=== PATIENT | male | born 1930 | race Caucasian/White ===

== ENCOUNTER 2016-09-02 19:22 | Emergency (ER) | payer MEDICARE, OTHER ==
[2016-09-02 19:47] VITALS: BP 151/91
[2016-09-02] MEDS ORDERED: Lidocaine 2% Jelly 10 ML Urojet ONE (20:00)
--- NOTE | 2016-09-02 20:00 | EDM.PDOC ---
[id number] URINARY RETENTION Time Seen by Provider: 09/02/16 19:58 Source: Reports: Patient, Old records, RN notes reviewed History Limitations: Reports: No limitations - History of Present Illness INITIAL COMMENTS - FREE TEXT/NARRATIVE: Drove himself here Chief complaint Unable to urinate HPI 85-year-old male with history of intermittent urinary retention, but has not seen urologist in the past. 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 He required catheterization which had begun in the emergency room. His latest episode occurred 8 days after biopsy of mediastinal lymph node, done at [facility]. He has a lung nodule. He had had catheterization done earlier this week, catheter was removed this morning but he was unable to void so he has returned for reinsertion of catheter By a scan done here shows over 100 mL of retained urine Grey Roll Worker apparently is setting him up an appointment with urology. He reports some pain with urination No fever or chills - Related Data Allergies/ADRs: Allergies Allergy/AdvReac Type Severity Reaction Status Date / Time amoxicillin Allergy Rash Verified 05/01/16 15:06 Penicillins Allergy Rash Verified 05/01/16 15:06 colesevelam AdvReac Stomach Verified 05/01/16 15:06 Upset piroxicam [From Feldene] AdvReac Nausea and Verified 05/01/16 15:06 Vomiting Wvgrkmb-Mzi-Tty Reductase AdvReac Muscle Verified 05/01/16 15:06 Inhibitor Aches Home Meds: Home Meds Acetaminophen/HYDROcodone [[place] 325-5 MG] 2 tab PO Q4H PRN #30 tablet 05/01/16 [Rx] Albuterol Sulfate [Proair Hfa] 2 puff IH QID 05/01/16 [History] Azelastine/Fluticasone [Dymista Nasal [place]] 2 puff NS BID 05/01/16 [History] Budesonide [Pulmicort Flexhaler] 180 mcg IH BID 05/01/16 [History] Docusate Sodium [Colace] 100 mg PO BID #50 cap 05/01/16 [Rx] Fluticasone Propionate [Flonase] 2 spray INH BID 05/01/16 [History] Multivitamin-Min/Iron/FA/Vit K [Multi-Day Plus Minerals Tablet] 1 each PO DAILY 05/01/16 [History] Niacinamide [Niacin] 500 mg PO DAILY 05/01/16 [History] Oxymetazoline HCl [Afrin] 1 spray NS DAILY 05/01/16 [History] Ubidecarenone [Coenzyme Q-10] 50 mg PO DAILY 05/01/16 [History] Ubidecarenone [Coenzyme Q-10] 200 mg PO DAILY 05/01/16 [History] Sulfamethoxazole/Trimethoprim [Septra DS] 1 each PO BID #10 tab 09/02/16 [Rx] Past Medical History HEENT History: Reports: Allergic rhinitis, Cataract, Hard of hearing Respiratory History: Reports: Asthma, Other (see below) Other Respiratory History: recent lung lymph nodes removed L side wk ago cancer Gastrointestinal History: Reports: Hemorrhoids Genitourinary History: Reports: Retention, urinary Musculoskeletal History: Reports: Arthritis Oncologic (Cancer) History: Reports: Lung - Past Surgical History HEENT Surgical History: Reports: None Respiratory Surgical History: Reports: Lung Biopsies GI Surgical History: Reports: Colonoscopy Social & Family History - Tobacco Use Smoking Status *Q: Never Smoker Years of Tobacco use: 70 Packs/Tins Daily: 0.3 Used Tobacco, but Quit: Yes Month Tobacco Last Used: 12 Second Hand Smoke Exposure: No - Caffeine Use Caffeine Use: Reports: None - Alcohol Use Days Per Week of Alcohol Use: 7 Number of Drinks Per Day: 2 Total Drinks Per Week: 14 - Recreational Drug Use Recreational Drug Use: No ED ROS GENERAL - Review of Systems Review Of Systems: See Below Constitutional: Reports: no symptoms HEENT: Reports: Other (Neck pain from recent surgery/biopsy) Respiratory: Reports: No Symptoms Cardiovascular: Reports: No symptoms GI/Abdominal: Reports: Abdominal pain, Distension : Reports: dysuria, urinary retention Musculoskeletal: Reports: no symptoms Skin: Reports: wound (Healing wounds of neck) Neurological: Reports: No Symptoms Psychiatric: Reports: No symptoms (Year to) Hematologic/Lymphatic: Reports: no symptoms Immunologic: Reports: no symptoms ED EXAM, RENAL/ - Physical Exam Exam: See Below Exam Limited By: No limitations General Appearance: alert, anxious, moderate distress, other (Quite uncomfortable, tachycardia presents with elevated systolic blood pressure, no difficulty speaking or breathing) Eye Exam: bilateral eye: normal inspection Ears: normal external exam, hearing grossly normal Throat/Mouth: Normal inspection Respiratory/Chest: no respiratory distress, no accessory muscle use Cardiovascular: normal peripheral pulses, regular rate, rhythm, tachycardia GI/Abdominal: normal bowel sounds, soft, tender, mass (Suprapubic mass, distended bladder) (Male) Exam: No hernia, Other (Distended bladder) Neurological: alert, no motor/sensory deficits Psychiatric: normal affect, normal mood Skin Exam: Warm, Dry, Intact, Normal color, No rash Course - Vital Signs Last Recorded V/S: Last Vital Signs Temp 36.9 C 09/02/16 19:43 Pulse 127 H 09/02/16 19:43 Resp BP 151/91 H 09/02/16 19:43 Pulse Ox 94 L 09/02/16 19:43 - Orders/Labs/Meds Orders: Active Orders 24 hr Category Date Time Status Insert Urinary Catheter [OM.PC] Q24H Care 09/02/16 20:15 Ordered Urinary Catheter Assessment [RC] ASDIRECTED Care 09/02/16 20:05 Active CULTURE URINE [RM] Stat Lab 09/02/16 20:30 Received Labs: Laboratory Tests 09/02/16 09/02/16 Range/Units 20:16 20:32 Urine Color Cancelled Yellow Urine Appearance Cancelled Slightly cloudy Urine pH Cancelled 6.0 Ur Specific [place] Cancelled 1.010 Urine Protein Cancelled Negative Urine Glucose (UA) Cancelled Normal Urine Ketones Cancelled Negative Urine Occult Blood Cancelled Moderate Urine Nitrite Cancelled Negative Urine Bilirubin Cancelled Negative Urine Urobilinogen Cancelled Normal Ur Leukocyte Esterase Cancelled Negative Urine RBC Cancelled 0-5 Urine WBC Cancelled 20-30 H Ur Epithelial Cells Cancelled Rare Amorphous Sediment Cancelled Not seen Urine Bacteria Cancelled Many Urine Mucus Cancelled Not seen Urine Other Cancelled Urinalysis Comment Cancelled Meds: Medications Discontinued Medications Generic Name Dose Route Start Last Admin Trade Name Freq PRN Reason Stop Dose Admin Lidocaine HCl Confirm 09/02/16 20:00 Xylocaine 2% Jelly Administered 09/02/16 20:01 Dose 10 ml .ROUTE .STK-MED ONE Lidocaine HCl 10 ml 09/02/16 20:10 Xylocaine 2% Jelly MUCMEM 09/02/16 20:11 ONETIME ONE Trimethoprim/Sulfamethoxazole 1 tab 09/02/16 21:00 Septra Ds PO 09/02/16 21:01 ONETIME ONE - Re-Assessments/Exams Free Text/Narrative Re-Assessment/Exam: 09/02/16 20:09 85-year-old male with urinary retention, acute, possibly related to recent surgery although he is not on any analgesics at the present time. Required catheterization this past week, has again retained ovary 100 mL of urine Collins catheter Followup with clinic and followup with urology Urinalysis positive for bacteria and pyuria Culture pending Symptoms improve with catheter Will treat with Septra first dose given here, 5 days, followup urology and clinic 09/02/16 21:02 Departure - Departure Time of Disposition: 21:02 Disposition: Home, Self-Care 01 Condition: good Clinical Impression: UTI, Urinary tract infectious disease, Acute urinary retention Prescriptions: Sulfamethoxazole/Trimethoprim [Septra DS] 1 each PO BID #10 tab Instructions: Collins Catheter Care, Adult, Urinary Tract Infection, Adult, Easy- to-Read Referrals: Jorge Luis Saldana MD [Primary Care Provider] - Forms: ED Department Discharge Additional Instructions: Make sure you contact the clinic to find out when you have a urology appointment Get rechecked promptly if you have high fever, vomiting, severe abdominal or back pain, or the catheter appears to be plugged or bleeding In general we like to leave the catheter in that least a few days to make sure the bladder has a chance to relax - My Orders Last 24 Hours: My Active Orders 09/02/16 20:05 Urinary Catheter Assessment [RC] ASDIRECTED 09/02/16 20:15 Insert Urinary Catheter [OM.PC] Q24H 09/02/16 20:30 CULTURE URINE [RM] Stat - Assessment/Plan Last 24 Hours: My Active Orders 09/02/16 20:05 Urinary Catheter Assessment [RC] ASDIRECTED 09/02/16 20:15 Insert Urinary Catheter [OM.PC] Q24H 09/02/16 20:30 CULTURE URINE [RM] Stat
[2016-09-02] MEDS ORDERED: Lidocaine 1% with EPINEPHrine 1:100,000 50 ML MDV INJECT STA (20:04)
[2016-09-02] MEDS ORDERED: Lidocaine 2% Jelly 10 ML Urojet MUCMEM ONE (20:10)
[2016-09-02] MEDS ORDERED: Sulfamethoxazole/Trimethoprim 800-160 MG Tab PO ONE (21:00)
== END 2016-09-02 21:10 | disposition home or self-care (01) ==
LOC: JP.ED 19:22
DX: N39.0 Urinary tract infection, site not specified (principal); R33.9 Retention of urine, unspecified; J45.909 Unspecified asthma, uncomplicated; Z85.118 Personal history of other malignant neoplasm of bronchus and lung; Z79.899 Other long term (current) drug therapy; Z88.1 Allergy status to other antibiotic agents; Z98.890 Other specified postprocedural states
CPT/HCPCS: 51702; 81001; 87086; 87088; 87186; 99283; 99284-25

== ENCOUNTER 2016-09-14 17:17 | Emergency (ER) | payer MEDICARE, OTHER ==
[2016-09-14 17:51] VITALS: BP 166/84
--- NOTE | 2016-09-14 17:58 | EDM.PDOC ---
ED HPI RENAL/ - General Chief Complaint: Genitourinary Problem Stated Complaint: CATH NOT WORKING Time Seen by Provider: 09/14/16 17:51 Source: Reports: Patient, RN notes reviewed History Limitations: Reports: No limitations - History of Present Illness INITIAL COMMENTS - FREE TEXT/NARRATIVE: 85-year-old gentleman presents emergency department today with difficulty with urination he has had bladder problems for the last 6 months follows with urology usually wears a catheter this particular one has been in place for about 10 days it stopped functioning today he is experiencing some lower abdominal pain denies any other symptoms - Related Data Allergies/ADRs: Allergies Allergy/AdvReac Type Severity Reaction Status Date / Time amoxicillin Allergy Rash Verified 09/14/16 17:51 Penicillins Allergy Rash Verified 09/14/16 17:51 colesevelam AdvReac Stomach Verified 09/14/16 17:51 Upset piroxicam [From Feldene] AdvReac Nausea and Verified 09/14/16 17:51 Vomiting Wfffepk-Ptc-Ruo Reductase AdvReac Muscle Verified 09/14/16 17:51 Inhibitor Aches Home Meds: Home Meds Acetaminophen/HYDROcodone [[place] 325-5 MG] 2 tab PO Q4H PRN #30 tablet 05/01/16 [Rx] Albuterol Sulfate [Proair Hfa] 2 puff IH QID 05/01/16 [History] Azelastine/Fluticasone [Dymista Nasal [place]] 2 puff NS BID 05/01/16 [History] Budesonide [Pulmicort Flexhaler] 180 mcg IH BID 05/01/16 [History] Docusate Sodium [Colace] 100 mg PO BID #50 cap 05/01/16 [Rx] Fluticasone Propionate [Flonase] 2 spray INH BID 05/01/16 [History] Multivitamin-Min/Iron/FA/Vit K [Multi-Day Plus Minerals Tablet] 1 each PO DAILY 05/01/16 [History] Niacinamide [Niacin] 500 mg PO DAILY 05/01/16 [History] Oxymetazoline HCl [Afrin] 1 spray NS DAILY 05/01/16 [History] Ubidecarenone [Coenzyme Q-10] 50 mg PO DAILY 05/01/16 [History] Ubidecarenone [Coenzyme Q-10] 200 mg PO DAILY 05/01/16 [History] Sulfamethoxazole/Trimethoprim [Septra DS] 1 each PO BID #10 tab 09/02/16 [Rx] Past Medical History HEENT History: Reports: Allergic rhinitis, Cataract, Hard of hearing Respiratory History: Reports: Asthma, Other (see below) Other Respiratory History: recent lung lymph nodes removed L side 12 wk ago cancer Gastrointestinal History: Reports: Hemorrhoids Genitourinary History: Reports: Retention, urinary Musculoskeletal History: Reports: Arthritis Oncologic (Cancer) History: Reports: Lung - Past Surgical History HEENT Surgical History: Reports: None Respiratory Surgical History: Reports: Lung Biopsies GI Surgical History: Reports: Colonoscopy Social & Family History - Tobacco Use Smoking Status *Q: Never Smoker Years of Tobacco use: 70 Packs/Tins Daily: 0.3 Used Tobacco, but Quit: Yes Month Tobacco Last Used: 12 Second Hand Smoke Exposure: No - Caffeine Use Caffeine Use: Reports: None - Alcohol Use Days Per Week of Alcohol Use: 7 Number of Drinks Per Day: 2 Total Drinks Per Week: 14 - Recreational Drug Use Recreational Drug Use: No ED ROS GENERAL - Review of Systems Review Of Systems: See Below Constitutional: Reports: no symptoms Respiratory: Reports: No Symptoms Cardiovascular: Reports: No symptoms GI/Abdominal: Reports: Abdominal pain : Reports: urinary retention ED EXAM, RENAL/ - Physical Exam Exam: See Below Text/Narrative:: Initial bladder scan showed 500 mL of urine, the catheter would not flush it was therefore removed a daily catheter was then replaced, after this was done relief of the bladder pain Exam Limited By: No limitations General Appearance: alert, WD/WN, no apparent distress GI/Abdominal: soft, non tender Course - Vital Signs Last Recorded V/S: Last Vital Signs Temp 98.8 F 09/14/16 17:46 Pulse 110 H 09/14/16 17:46 Resp 16 09/14/16 17:46 BP 166/84 H 09/14/16 17:46 Pulse Ox 94 L 09/14/16 17:46 - Orders/Labs/Meds Orders: Active Orders 24 hr Category Date Time Status Insert Urinary Catheter [OM.PC] Q24H Care 09/14/16 18:00 Ordered Urinary Catheter Assessment [RC] ASDIRECTED Care 09/14/16 17:52 Ordered Departure - Departure Time of Disposition: 17:57 Disposition: Home, Self-Care 01 Condition: good Clinical Impression: Acute urinary retention Forms: ED Department Discharge Additional Instructions: Keep your followup appointment with urology, call or return to the emergency department with worsening of symptoms - My Orders Last 24 Hours: My Active Orders 09/14/16 17:52 Urinary Catheter Assessment [RC] ASDIRECTED 09/14/16 18:00 Insert Urinary Catheter [OM.PC] Q24H - Assessment/Plan Last 24 Hours: My Active Orders 09/14/16 17:52 Urinary Catheter Assessment [RC] ASDIRECTED 09/14/16 18:00 Insert Urinary Catheter [OM.PC] Q24H Plan: Assessment Acuity = acute Site and laterality = urinary retention Etiology = secondary to stenosed catheter Manifestations = none Location of injury = home Lab values = none Plan He has a followup with urology in 3 days Patient was in agreement with the plan all questions were answered, they were instructed to return to the emergency department or call for worsening symptoms. This note was dictated using [employer] voice recognition software please call with any questions.
== END 2016-09-14 18:08 | disposition home or self-care (01) ==
LOC: JP.ED 17:17
DX: R33.8 Other retention of urine (principal); J45.909 Unspecified asthma, uncomplicated; Z85.118 Personal history of other malignant neoplasm of bronchus and lung; Z79.899 Other long term (current) drug therapy; Z88.0 Allergy status to penicillin; Z88.1 Allergy status to other antibiotic agents; Z88.8 Allergy status to other drugs, medicaments and biological substances
CPT/HCPCS: 51702; 99282; 99283-25

== ENCOUNTER 2016-09-21 06:41 | Day surgery (SDC) | payer MEDICARE, OTHER ==
[2016-09-21] MEDS ORDERED: Lidocaine 1% with EPINEPHrine 1:100,000 50 ML MDV ONE (07:02)
[2016-09-21] MEDS ORDERED: Bupivacaine 0.5% 50 ML MDV ONE (07:02)
[2016-09-21] MEDS ORDERED: Lactated Ringers 1,000 ML IV SCH (07:30)
[2016-09-21] MEDS ORDERED: Propofol 200 MG/20 ML SDV ONE ×2 (08:01→08:50)
[2016-09-21] MEDS ORDERED: fentaNYL 100 MCG/2 ML SDV ONE (08:02)
[2016-09-21] MEDS ORDERED: Clindamycin Phosphate 900 MG in Sodium Chloride 0.9% 100 ML IV ONE (08:45)
--- NOTE | 2016-09-21 09:45 | CR ---
Portable chest There is been placement of a Edwieo-v-Rhmj catheter on the left. The tip is at the junction of the l eft brachiocephalic and SVC junction.
[2016-09-21 10:41] VITALS: BP 150/69
--- NOTE | 2016-09-21 13:49 | OR ---
DATE OF PROCEDURE: 09/21/2016 PREOPERATIVE DIAGNOSIS: Lung cancer, needs chemotherapy. POSTOPERATIVE DIAGNOSIS: Lung cancer, needs chemotherapy. PROCEDURE: Left subclavian power port placement manufactured by [employer]. ANESTHESIA: IV anesthesia with monitored anesthesia care. INDICATIONS: This is an 85-year-old white male who has the lung cancer. He needs chemotherapy. He is referred for a Port-A-Cath placement. We used a power port. I counseled him for placement of this including risks and alternatives, and he gave his informed consent to proceed. DESCRIPTION OF PROCEDURE: The patient's upper chest, shoulders, and neck were prepped and draped in the usual sterile fashion. Time-out was held. Lidocaine 1% with epinephrine was infiltrated about the left infraclavicular area. The patient was placed in steep Trendelenburg. The left subclavian vein was cannulated with a needle and a wire was passed through the needle into the vein. Fluoroscopically it was noted to go down into the superior vena cava, right atrium and inferior vena cava. A transverse incision was then made in the infraclavicular area at the wire exit site and then a pocket was formed inferior to this. The Bard power port which had previously had the catheter attached to the reservoir and had been flushed with heparinized saline using a noncoring needle, was then placed in the pocket and the catheter was measured to an appropriate length. It was cut at this length. A dilator was then passed over the wire and the dilator was removed. A dilator with introducer was then passed over the wire and the wire and dilator were removed leaving the introducer in the vein. The catheter was then passed through the introducer into the vein and the introducer was removed leaving the catheter in the vein. It was easily aspirated and flushed. The reservoir was placed in the previously formed pocket and anchored with 3-0 silk suture to the underlying fascia at a couple of sites. The incision was then irrigated and dried. The subcutaneous tissue was closed with a running stitch of 3-0 Vicryl, 4-0 Vicryl using a subcuticular stitch was placed to approximate the skin. Steri-Strips were applied. The port was again accessed and easily aspirated and then again was flushed with heparinized saline. A sterile dressing was then applied. He was brought to the recovery room in good condition, having tolerated the procedure well. Omar Christianson MD /[id number]
== END 2016-09-21 10:33 | disposition home or self-care (01) ==
LOC: JP.SDS 06:41
PROVIDERS: ATTEND Surgery
DX: Z51.11 Encounter for antineoplastic chemotherapy (principal); C34.90 Malignant neoplasm of unspecified part of unspecified bronchus or lung; E78.5 Hyperlipidemia, unspecified; G47.33 Obstructive sleep apnea (adult) (pediatric); Z88.0 Allergy status to penicillin; Z88.1 Allergy status to other antibiotic agents; Z88.8 Allergy status to other drugs, medicaments and biological substances
CPT/HCPCS: 36561; C1788; J1642; J2704; J3010; J7030; J7120; S0077

== ENCOUNTER 2016-12-26 08:39 | Emergency (ER) | payer MEDICARE, OTHER ==
[2016-12-26 08:57] VITALS: BP 144/77
[2016-12-26] MEDS ORDERED: Ketorolac 30 MG/ML SDV IVPUSH ONE (09:24)
[2016-12-26] MEDS ORDERED: methylPREDNISolone Sodium Succinate 125 MG/2 ML SDV IVPUSH ONE (09:24)
--- NOTE | 2016-12-26 09:32 | EDM.PDOC ---
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 The pain improves in the evening, he is able to sleep but shortly after waking up it becomes much worse. This morning he took 2 of his oxycodone at 6 AM and it is so sore he came in to get extra relief. He has no shortness of breath, no fevers or chills and no nausea and vomiting. Onset: Unknown/Unsure Location: Reports: Upper Extremity, Right Severity: Severe Worsens with: Reports: Movement Associated Symptoms: Denies: Chest Pain, Cough, Fever/Chills, Headaches, Shortness of Breath right arm Pain Score (Numeric/FACES): 10 - Related Data Allergies Allergy/AdvReac Type Severity Reaction Status Date / Time amoxicillin Allergy Rash Verified 12/26/16 08:56 influenza virus vaccine, Allergy Other Verified 12/26/16 08:56 specific Penicillins Allergy Rash Verified 12/26/16 08:56 colesevelam AdvReac Stomach Verified 12/26/16 08:56 Upset piroxicam [From Feldene] AdvReac Nausea and Verified 12/26/16 08:56 Vomiting Ddrepul-Ioz-Olh Reductase AdvReac Muscle Verified 12/26/16 08:56 Inhibitor Aches Home Meds: Home Meds Albuterol Sulfate [Proair Hfa] 2 puff IH QID 05/01/16 [History] Azelastine/Fluticasone [Dymista Nasal [place]] 2 puff NS BID 05/01/16 [History] Budesonide [Pulmicort Flexhaler] 2 puff IH BID 05/01/16 [History] Fluticasone Propionate [Flonase] 2 spray INH BID 05/01/16 [History] Multivitamin-Min/Iron/FA/Vit K [Multi-Day Plus Minerals Tablet] 1 each PO DAILY 05/01/16 [History] Niacinamide [Niacin] 500 mg PO DAILY 05/01/16 [History] Oxymetazoline HCl [Afrin] 1 spray NS DAILY PRN 05/01/16 [History] Aspirin [Children's Aspirin] 81 mg PO DAILY 09/18/16 [History] Ubidecarenone [Co Q-10] 200 mg PO DAILY 09/18/16 [History] Tiotropium [Spiriva HandiHaler] 18 mcg INH DAILY 12/26/16 [History] oxyCODONE 5 mg PO 6XDAY PRN 12/26/16 [History] Past Medical History HEENT History: Reports: Allergic Rhinitis, Cataract, Hard of Hearing, Impaired Vision Cardiovascular History: Reports: High Cholesterol Respiratory History: Reports: Asthma, Other (See Below) Other Respiratory History: lung cancer Gastrointestinal History: Reports: Hemorrhoids Genitourinary History: Reports: Retention, Urinary Other Genitourinary History: came with a starkey catheter and leg bag Musculoskeletal History: Reports: Arthritis Oncologic (Cancer) History: Reports: Lung, Other (See Below) Other Oncologic History: port a cath placed on right side Dermatologic History: Reports: Eczema - Infectious Disease History Infectious Disease History: Reports: Chicken Pox, Measles, Mumps - Past Surgical History Respiratory Surgical History: Reports: Lung Biopsies GI Surgical History: Reports: Colonoscopy, Other (See Below) Other GI Surgeries/Procedures: hemorrhoidectomy Social & Family History - Family History Family Medical History: Noncontributory - Tobacco Use Smoking Status *Q: Former Smoker Years of Tobacco use: 65 Packs/Tins Daily: 0.5 Used Tobacco, but Quit: Yes Month Tobacco Last Used: may Second Hand Smoke Exposure: No - Caffeine Use Caffeine Use: Reports: Coffee - Alcohol Use Days Per Week of Alcohol Use: 7 Number of Drinks Per Day: 1 Total Drinks Per Week: 7 - Recreational Drug Use Recreational Drug Use: No Review of Systems - Review of Systems Review Of Systems: See Below Constitutional: Denies: Fever Respiratory: Denies: Shortness of Breath Cardiovascular: Denies: Chest Pain Musculoskeletal: Reports: Neck Pain Skin: Denies: Bruising Neurological: Denies: Headache ED EXAM, GENERAL - Physical Exam Exam: See Below Exam Limited By: No Limitations General Appearance: Alert, Mild Distress (Patient is very uncomfortable) Neck: Other (There is a 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 It is tender to palpation. He has no neurologic deficit of the right arm but has significant pain with movement.) Respiratory/Chest: No Respiratory Distress, Lungs Clear Course - Vital Signs Last Recorded V/S: Last Vital Signs Temp 99.1 F 12/26/16 08:54 Pulse 122 H 12/26/16 08:54 Resp 20 12/26/16 08:54 BP 144/77 H 12/26/16 08:54 Pulse Ox 93 L 12/26/16 08:54 - Orders/Labs/Meds Meds: Medications Discontinued Medications Generic Name Dose Route Start Last Admin Trade Name Satya PRN Reason Stop Dose Admin Ketorolac Tromethamine 30 mg 12/26/16 09:24 12/26/16 09:48 Toradol IVPUSH 12/26/16 09:25 30 mg ONETIME ONE Administration Methylprednisolone Sodium Succinate 125 mg 12/26/16 09:24 12/26/16 09:37 Solu-Medrol IVPUSH 12/26/16 09:25 125 mg ONETIME ONE Administration - Re-Assessments/Exams Free Text/Narrative Re-Assessment/Exam: 12/26/16 09:29 An IV was started and the patient was given 30 mg of Toradol IV along with 125 mg of Solu-Medrol IV. Hopefully this will reduce inflammation until he can see his oncologist on Wednesday. He was also reassured that he can increase his oxycodone to 2-3 pills every 3-4 hours if needed safely. Departure - Departure Time of Disposition: 10:45 Disposition: Home, Self-Care 01 Condition: Fair Clinical Impression: Arm pain, right, Tumor of soft tissue of neck - Discharge Information Instructions: Pain Medicine Instructions, [id number] Referrals: Jorge Luis Saldana MD [Primary Care Provider] - Forms: ED Department Discharge Care Plan Goals: Continue to take 2 or even 3 of your pain pills every 3-4 hours if needed. Call your doctor on Wednesday to discuss further treatment. Return sooner if worsening or concerns.
== END 2016-12-26 10:47 | disposition home or self-care (01) ==
LOC: JP.ED 08:39
DX: M79.601 Pain in right arm (principal); D36.7 Benign neoplasm of other specified sites; E78.00 Pure hypercholesterolemia, unspecified; J45.909 Unspecified asthma, uncomplicated; M19.90 Unspecified osteoarthritis, unspecified site; Z85.118 Personal history of other malignant neoplasm of bronchus and lung; Z79.899 Other long term (current) drug therapy; Z88.0 Allergy status to penicillin; Z88.1 Allergy status to other antibiotic agents; Z88.8 Allergy status to other drugs, medicaments and biological substances; Z98.890 Other specified postprocedural states; Z87.891 Personal history of nicotine dependence
CPT/HCPCS: 96374; 96375; 99283; J1885; J2930

== ENCOUNTER 2017-02-22 11:08 | Emergency (ER) | payer MEDICARE, OTHER ==
[2017-02-22] MEDS ORDERED: Albuterol 0.083% 2.5 MG/3 ML Neb Soln NEB ONE ×2 (11:24→13:04)
[2017-02-22] MEDS ORDERED: methylPREDNISolone Sodium Succinate 125 MG/2 ML SDV IVPUSH ONE (11:29)
--- NOTE | 2017-02-22 11:52 | EDM.PDOC ---
ED HPI GENERAL MEDICAL PROBLEM - General Chief Complaint: Respiratory Problem Stated Complaint: SOB Time Seen by Provider: 02/22/17 11:15 Source of Information: Reports: Family History Limitations: Reports: No Limitations - History of Present Illness INITIAL COMMENTS - FREE TEXT/NARRATIVE: pt arrived with increased sob. He has been vry wheezy. Onset: Gradual Duration: Getting Worse Location: Reports: Chest Associated Symptoms: Reports: Cough, Shortness of Breath, Other ( wheezing. ) - Related Data Allergies Allergy/AdvReac Type Severity Reaction Status Date / Time amoxicillin Allergy Rash Verified 12/26/16 08:56 influenza virus vaccine, Allergy Other Verified 12/26/16 08:56 specific Penicillins Allergy Rash Verified 12/26/16 08:56 colesevelam AdvReac Stomach Verified 12/26/16 08:56 Upset piroxicam [From Feldene] AdvReac Nausea and Verified 12/26/16 08:56 Vomiting Spwvxjj-[id number]-[id number] Reductase AdvReac Muscle Verified 12/26/16 08:56 Inhibitor Aches Home Meds: Home Meds Albuterol Sulfate [Proair Hfa] 2 puff IH QID 05/01/16 [History] Azelastine/Fluticasone [Dymista Nasal [place]] 2 puff NS BID 05/01/16 [History] Budesonide [Pulmicort Flexhaler] 2 puff IH BID 05/01/16 [History] Fluticasone Propionate [Flonase] 2 spray INH BID 05/01/16 [History] Multivitamin-Min/Iron/FA/Vit K [Multi-Day Plus Minerals Tablet] 1 each PO DAILY 05/01/16 [History] Niacinamide [Niacin] 500 mg PO DAILY 05/01/16 [History] Oxymetazoline HCl [Afrin] 1 spray NS DAILY PRN 05/01/16 [History] Aspirin [Children's Aspirin] 81 mg PO DAILY 09/18/16 [History] Ubidecarenone [Co Q-10] 200 mg PO DAILY 09/18/16 [History] Tiotropium [Spiriva HandiHaler] 18 mcg INH DAILY 12/26/16 [History] oxyCODONE 5 mg PO 6XDAY PRN 12/26/16 [History] Past Medical History HEENT History: Reports: Allergic Rhinitis, Cataract, Hard of Hearing, Impaired Vision Cardiovascular History: Reports: High Cholesterol Respiratory History: Reports: Asthma, Other (See Below) Other Respiratory History: lung cancer Gastrointestinal History: Reports: Hemorrhoids Genitourinary History: Reports: Retention, Urinary Other Genitourinary History: came with a starkey catheter and leg bag Musculoskeletal History: Reports: Arthritis Oncologic (Cancer) History: Reports: Lung, Other (See Below) Other Oncologic History: port a cath placed on right side Dermatologic History: Reports: Eczema - Infectious Disease History Infectious Disease History: Reports: Chicken Pox, Measles, Mumps - Past Surgical History Respiratory Surgical History: Reports: Lung Biopsies GI Surgical History: Reports: Colonoscopy, Other (See Below) Other GI Surgeries/Procedures: hemorrhoidectomy Social & Family History - Family History Family Medical History: Noncontributory - Tobacco Use Smoking Status *Q: Former Smoker Years of Tobacco use: 65 Packs/Tins Daily: 0.5 Used Tobacco, but Quit: Yes Month Tobacco Last Used: may Second Hand Smoke Exposure: No - Caffeine Use Caffeine Use: Reports: Coffee - Alcohol Use Days Per Week of Alcohol Use: 7 Number of Drinks Per Day: 1 Total Drinks Per Week: 7 - Recreational Drug Use Recreational Drug Use: No ED ROS GENERAL - Review of Systems Review Of Systems: See Below Constitutional: Reports: No Symptoms HEENT: Reports: No Symptoms Respiratory: Reports: Shortness of Breath, Wheezing, Cough Cardiovascular: Reports: No Symptoms Endocrine: Reports: No Symptoms GI/Abdominal: Reports: No Symptoms : Reports: No Symptoms Musculoskeletal: Reports: No Symptoms Skin: Reports: No Symptoms Psychiatric: Reports: Anxiety ED EXAM, GENERAL - Physical Exam Exam: See Below Free Text/Narrative:: pt arrived with marked sob. He has anthony wheezing very hard. He does not have a fver. He just finished his course of radiation. Exam Limited By: No Limitations General Appearance: Alert, Anxious, Moderate Distress Ears: Normal TMs Nose: Normal Inspection Throat/Mouth: Normal Inspection Head: Atraumatic Neck: Normal Inspection Respiratory/Chest: Decreased Breath Sounds, Wheezing Cardiovascular: Regular Rate, Rhythm GI/Abdominal: Soft, Non-Tender (Male) Exam: Deferred Rectal (Males) Exam: Deferred Back Exam: Normal Inspection Extremities: Normal Inspection Neurological: Alert, Oriented, Normal Cognition Psychiatric: Normal Affect Course - Vital Signs Last Recorded V/S: Last Vital Signs Temp 36.7 C 02/22/17 11:16 Pulse 121 H 02/22/17 11:32 Resp 50 H 02/22/17 11:16 BP 65/32 L 02/22/17 11:16 Pulse Ox 84 L 02/22/17 11:16 - Orders/Labs/Meds Orders: Active Orders 24 hr Category Date Time Status RT Aerosol Therapy [RC] ASDIRECTED Care 02/22/17 11:24 Active RT Aerosol Therapy [RC] ASDIRECTED Care 02/22/17 13:04 Ordered Albuterol [Proventil Neb Soln] Med 02/22/17 13:04 Once 2.5 mg NEB ONETIME ONE Sodium Chloride 0.9% [Saline Flush] Med 02/22/17 11:28 Active 10 ml FLUSH ASDIRECTED PRN Saline Lock Insert [OM.PC] Routine Oth 02/22/17 11:28 Ordered Medication Orders Sodium Chloride (Saline Flush) 10 ml FLUSH ASDIRECTED PRN PRN Reason: Keep Vein Open Last Admin: 02/22/17 12:00 Dose: 10 ml Admin: 02/22/17 11:57 Dose: 10 ml Labs: Laboratory Tests 02/22/17 02/22/17 02/22/17 Range/Units 11:30 11:44 11:44 WBC 7.7 (4.5-11.0) K/uL RBC 4.75 (4.30-5.90) M/uL Hgb 13.1 D (12.0-15.0) g/dL Hct 40.1 (40.0-54.0) % MCV 84 (80-98) fL MCH 28 (27-31) pg MCHC 33 (32-36) % Plt Count 262 (150-400) K/uL Neut % (Auto) 78 H (36-66) % Lymph % (Auto) 6 L (24-44) % [place] % (Auto) 10 H (2-6) % Eos % (Auto) 5 H (2-4) % Baso % (Auto) 1 (0-1) % Puncture Site Lt radial ABG pH 7.369 (7.350-7.450) ABG pCO2 45.8 H (35.0-42.0) mmHg ABG pO2 50.4 L (75.0-100.0) mmHg ABG HCO3 25.8 (22.0-26.0) mmol/L ABG Total CO2 23.2 (23.0-27.0) mmol/L ABG O2 Saturation 83.3 L (95.0-98.0) % ABG O2 Content 15.0 (15.0-23.0) %vol ABG Base Excess 0.7 mm/L ABG Hemoglobin 13.2 L (13.5-18.0) g/dL ABG Oxyhemoglobin 81.2 % ABG Carboxyhemoglobin 1.9 H (0.0-1.6) % ABG Methemoglobin 0.6 % Ever Test Passed O2 Delivery Device Nasal cannula Oxygen Flow Rate 3 L Sodium 141 (140-148) mmol/L Potassium 4.3 (3.6-5.2) mmol/L Chloride 106 (100-108) mmol/L Carbon Dioxide 26 (21-32) mmol/L Anion Gap 8.6 (5.0-14.0) mmol/L BUN 14 (7-18) mg/dL Creatinine 1.0 (0.8-1.3) mg/dL Est Cr Clr Drug Dosing 47.76 mL/min Estimated GFR (MDRD) > 60 (>60) Glucose 105 (74-106) mg/dL Calcium 8.9 (8.5-10.1) mg/dL Total Bilirubin 0.3 (0.2-1.0) mg/dL AST 14 L (15-37) U/L ALT 19 (12-78) U/L Alkaline Phosphatase 82 (46-116) U/L Total Protein 7.4 (6.4-8.2) g/dL Albumin 3.4 (3.4-5.0) g/dL Globulin 4.0 H (2.3-3.5) g/dL Albumin/Globulin Ratio 0.9 L (1.2-2.2) Urine Color Urine Appearance Urine pH (4.5-8.0) Ur Specific [place] (1.008-1.030) Urine Protein (NEGATIVE) mg/dL Urine Glucose (UA) (NEGATIVE) mg/dL Urine Ketones (NEGATIVE) mg/dL Urine Occult Blood (NEGATIVE) Urine Nitrite (NEGAITVE) Urine Bilirubin (NEGATIVE) Urine Urobilinogen (NORMAL) mg/dL Ur Leukocyte Esterase (NEGATIVE) Urine RBC (0-5) Urine WBC (0-5) Ur Epithelial Cells Amorphous Sediment Urine Bacteria Urine Mucus 02/22/17 Range/Units 12:05 WBC (4.5-11.0) K/uL RBC (4.30-5.90) M/uL Hgb (12.0-15.0) g/dL Hct (40.0-54.0) % MCV (80-98) fL MCH (27-31) pg MCHC (32-36) % Plt Count (150-400) K/uL Neut % (Auto) (36-66) % Lymph % (Auto) (24-44) % [place] % (Auto) (2-6) % Eos % (Auto) (2-4) % Baso % (Auto) (0-1) % Puncture Site ABG pH (7.350-7.450) ABG pCO2 (35.0-42.0) mmHg ABG pO2 (75.0-100.0) mmHg ABG HCO3 (22.0-26.0) mmol/L ABG Total CO2 (23.0-27.0) mmol/L ABG O2 Saturation (95.0-98.0) % ABG O2 Content (15.0-23.0) %vol ABG Base Excess mm/L ABG Hemoglobin (13.5-18.0) g/dL ABG Oxyhemoglobin % ABG Carboxyhemoglobin (0.0-1.6) % ABG Methemoglobin % Ever Test O2 Delivery Device Oxygen Flow Rate L Sodium (140-148) mmol/L Potassium (3.6-5.2) mmol/L Chloride (100-108) mmol/L Carbon Dioxide (21-32) mmol/L Anion Gap (5.0-14.0) mmol/L BUN (7-18) mg/dL Creatinine (0.8-1.3) mg/dL Est Cr Clr Drug Dosing mL/min Estimated GFR (MDRD) (>60) Glucose (74-106) mg/dL Calcium (8.5-10.1) mg/dL Total Bilirubin (0.2-1.0) mg/dL AST (15-37) U/L ALT (12-78) U/L Alkaline Phosphatase (46-116) U/L Total Protein (6.4-8.2) g/dL Albumin (3.4-5.0) g/dL Globulin (2.3-3.5) g/dL Albumin/Globulin Ratio (1.2-2.2) Urine Color Yellow Urine Appearance Cloudy Urine pH 5.0 (4.5-8.0) Ur Specific [place] 1.020 (1.008-1.030) Urine Protein 30 H (NEGATIVE) mg/dL Urine Glucose (UA) Normal (NEGATIVE) mg/dL Urine Ketones Negative (NEGATIVE) mg/dL Urine Occult Blood Large (NEGATIVE) Urine Nitrite Negative (NEGAITVE) Urine Bilirubin Negative (NEGATIVE) Urine Urobilinogen Normal (NORMAL) mg/dL Ur Leukocyte Esterase Large (NEGATIVE) Urine RBC 30-40 H (0-5) Urine WBC 75-100 H (0-5) Ur Epithelial Cells Moderate Amorphous Sediment Not seen Urine Bacteria Moderate Urine Mucus Few Meds: Medications Generic Name Dose Route Start Last Admin Trade Name Freq PRN Reason Stop Dose Admin Sodium Chloride 10 ml 02/22/17 11:28 02/22/17 12:00 Saline Flush FLUSH 10 ml ASDIRECTED PRN Administration Keep Vein Open Discontinued Medications Generic Name Dose Route Start Last Admin Trade Name Freq PRN Reason Stop Dose Admin Albuterol 2.5 mg 02/22/17 11:24 02/22/17 11:31 Proventil Neb Soln NEB 02/22/17 11:25 2.5 mg ONETIME ONE Administration Methylprednisolone Sodium Succinate 125 mg 02/22/17 11:29 02/22/17 11:57 Solu-Medrol IVPUSH 02/22/17 11:30 125 mg ONETIME ONE Administration - Re-Assessments/Exams Free Text/Narrative Re-Assessment/Exam: 02/22/17 13:08 pt arrived with marked sob and wheezing, He hs jut finished his radiation. He has had sob since the radiation. Departure - Departure Time of Disposition: 13:10 Disposition: Home, Self-Care 01 Condition: Fair Clinical Impression: Bronchospasm, Cancer of lung, Status post radiation therapy - Discharge Information Referrals: Jorge Luis Saldana MD [Primary Care Provider] - Forms: ED Department Discharge Care Plan Goals: albuterol neb q6h and prn if marked sob., predisone 20mg daily for 5 days, cont other meds, appt with Dr saldana in 4-5 days. - My Orders Last 24 Hours: My Active Orders 02/22/17 11:24 RT Aerosol Therapy [RC] ASDIRECTED 02/22/17 11:28 Sodium Chloride 0.9% [Saline Flush] 10 ml FLUSH ASDIRECTED PRN Saline Lock Insert [OM.PC] Routine 02/22/17 13:04 RT Aerosol Therapy [RC] ASDIRECTED Albuterol [Proventil Neb Soln] 2.5 mg NEB ONETIME ONE - Assessment/Plan Last 24 Hours: My Active Orders 02/22/17 11:24 RT Aerosol Therapy [RC] ASDIRECTED 02/22/17 11:28 Sodium Chloride 0.9% [Saline Flush] 10 ml FLUSH ASDIRECTED PRN Saline Lock Insert [OM.PC] Routine 02/22/17 13:04 RT Aerosol Therapy [RC] ASDIRECTED Albuterol [Proventil Neb Soln] 2.5 mg NEB ONETIME ONE
[2017-02-22] MEDS: Sodium Chloride 0.9% 10 ML Syringe FLUSH PRN ×2 (11:57→12:00)
--- NOTE | 2017-02-22 12:10 | CR ---
Chest 1V Frontal INDICATION: sob and wheezy. COMPARISON: None FINDINGS: Single portable view of the chest. Heart size normal. Port-A-Cath in place. No infiltrate s or pleural effusions. No signs of pulmonary edema. IMPRESSION: Nothing acute.
[2017-02-22 13:36] VITALS: BP 136/88
== END 2017-02-22 13:30 | disposition home or self-care (01) ==
LOC: JP.ED 11:08
DX: J98.01 Acute bronchospasm (principal); C34.90 Malignant neoplasm of unspecified part of unspecified bronchus or lung; E78.00 Pure hypercholesterolemia, unspecified; M19.90 Unspecified osteoarthritis, unspecified site; Z98.890 Other specified postprocedural states; Z87.891 Personal history of nicotine dependence; Z79.82 Long term (current) use of aspirin; Z79.899 Other long term (current) drug therapy; Z88.0 Allergy status to penicillin; Z88.1 Allergy status to other antibiotic agents; Z88.7 Allergy status to serum and vaccine; Z88.8 Allergy status to other drugs, medicaments and biological substances
CPT/HCPCS: 36415; 36600; 71010; 80053; 81001; 82803; 85025; 94640; 96374; 99285; J1642; J2930; J7050; 99284

== ENCOUNTER 2017-02-24 05:36 | Inpatient (IN) | payer MEDICARE, OTHER ==
[2017-02-24] MEDS ORDERED: Albuterol/Ipratropium 3.0-0.5 MG/3 ML Neb Soln ONE (05:49)
[2017-02-24] MEDS ORDERED: Albuterol/Ipratropium 3.0-0.5 MG/3 ML Neb Soln NEB ONE (05:51)
[2017-02-24] MEDS ORDERED: methylPREDNISolone Sodium Succinate 125 MG/2 ML SDV ONE (06:02)
[2017-02-24] MEDS ORDERED: Albuterol 0.083% 2.5 MG/3 ML Neb Soln NEB PRN ×2 (06:04→10:03)
--- NOTE | 2017-02-24 06:20 | EDM.PDOC ---
<Mike Brown - Last Filed: 02/24/17 07:03> ED HPI GENERAL MEDICAL PROBLEM - General Chief Complaint: Respiratory Problem Stated Complaint: SOB Time Seen by Provider: 02/24/17 05:53 Source of Information: Reports: Patient History Limitations: Reports: No Limitations - History of Present Illness INITIAL COMMENTS - FREE TEXT/NARRATIVE: 86 years old male patient with history of COPD, metastatic lung cancer with radiation. He just finished 20 times of radiation on February 01. Presented today with shortness of breath dry cough and wheezing started yesterday. Patient was seen 3 days ago here in the ER and was given 5 day course of prednisone and discharged home. Start feeling better first and secondary then started getting worse again. Denies any chest pain. Denies any fever., Onset: Gradual - Related Data Allergies Allergy/AdvReac Type Severity Reaction Status Date / Time amoxicillin Allergy Rash Verified 02/24/17 05:47 influenza virus vaccine, Allergy Other Verified 02/24/17 05:47 specific Penicillins Allergy Rash Verified 02/24/17 05:47 colesevelam AdvReac Stomach Verified 02/24/17 05:47 Upset piroxicam [From Feldene] AdvReac Nausea and Verified 02/24/17 05:47 Vomiting Iwisoje-Xaz-Yau Reductase AdvReac Muscle Verified 02/24/17 05:47 Inhibitor Aches Home Meds: Home Meds Albuterol Sulfate [Proair Hfa] 2 puff IH QID 05/01/16 [History] Azelastine/Fluticasone [Dymista Nasal [place]] 2 puff NS BID 05/01/16 [History] Budesonide [Pulmicort Flexhaler] 2 puff IH BID 05/01/16 [History] Fluticasone Propionate [Flonase] 2 spray INH BID 05/01/16 [History] Niacinamide [Niacin] 500 mg PO DAILY 05/01/16 [History] Aspirin [Children's Aspirin] 81 mg PO DAILY 09/18/16 [History] Tiotropium [Spiriva HandiHaler] 18 mcg INH DAILY 12/26/16 [History] Albuterol [Proventil Neb Soln] 1 dose INH Q6H PRN 02/24/17 [History] predniSONE [Prednisone] 20 mg PO DAILY 02/24/17 [History] Past Medical History HEENT History: Reports: Allergic Rhinitis, Cataract, Hard of Hearing, Impaired Vision Cardiovascular History: Reports: High Cholesterol Respiratory History: Reports: Asthma, Other (See Below) Other Respiratory History: lung cancer Gastrointestinal History: Reports: Hemorrhoids Genitourinary History: Reports: Retention, Urinary Other Genitourinary History: came with a starkey catheter and leg bag Musculoskeletal History: Reports: Arthritis Oncologic (Cancer) History: Reports: Lung, Other (See Below) Other Oncologic History: port a cath placed on right side Dermatologic History: Reports: Eczema - Infectious Disease History Infectious Disease History: Reports: Chicken Pox, Measles, Mumps - Past Surgical History Respiratory Surgical History: Reports: Lung Biopsies GI Surgical History: Reports: Colonoscopy, Other (See Below) Other GI Surgeries/Procedures: hemorrhoidectomy Social & Family History - Family History Family Medical History: Noncontributory - Tobacco Use Smoking Status *Q: Former Smoker Years of Tobacco use: 65 Packs/Tins Daily: 0.5 Used Tobacco, but Quit: Yes Month Tobacco Last Used: may Second Hand Smoke Exposure: No - Caffeine Use Caffeine Use: Reports: Coffee - Alcohol Use Days Per Week of Alcohol Use: 7 Number of Drinks Per Day: 1 Total Drinks Per Week: 7 - Recreational Drug Use Recreational Drug Use: No ED ROS GENERAL - Review of Systems Review Of Systems: ROS reveals no pertinent complaints other than HPI. ED EXAM, GENERAL - Physical Exam Exam: See Below Exam Limited By: No Limitations General Appearance: Alert, Anxious, Mild Distress Nose: Normal Inspection, Normal Mucosa, No Blood Head: Atraumatic, Normocephalic Neck: Normal Inspection, Supple, Non-Tender, Full Range of Motion Respiratory/Chest: Respiratory Distress, Crackles, Rales, Wheezing, Prolonged Expiration Cardiovascular: Normal Peripheral Pulses, No Edema, No Gallop, No JVD, No Murmur , No Rub, Tachycardia GI/Abdominal: Normal Bowel Sounds, Soft, Non-Tender, No Organomegaly, No Distention, No Abnormal Bruit, No Mass Neurological: Alert, Oriented, CN II-XII Intact, Normal Cognition, Normal Gait, Normal Reflexes, No Motor/Sensory Deficits Course - Vital Signs Last Recorded V/S: Last Vital Signs Temp 98.1 F 02/24/17 05:45 Pulse 125 H 02/24/17 07:56 Resp 22 H 02/24/17 07:56 BP 189/109 H 02/24/17 07:56 Pulse Ox 98 02/24/17 07:56 - Orders/Labs/Meds Orders: Active Orders 24 hr Category Date Time Status Cardiac Monitoring [RC] .As Directed Care 02/24/17 06:24 Active EKG Documentation Completion [RC] ASDIRECTED Care 02/24/17 06:10 Active RT Aerosol Therapy [RC] ASDIRECTED Care 02/24/17 05:51 Active RT Aerosol Therapy [RC] ASDIRECTED Care 02/24/17 06:06 Active Chest 1V Frontal [CR] Urgent Exams 02/24/17 06:07 Taken CULTURE BLOOD [BC] Urgent Lab 02/24/17 07:10 Received CULTURE BLOOD [BC] Urgent Lab 02/24/17 07:20 Received Albuterol [Proventil Neb Soln] Med 02/24/17 06:04 Active 2.5 mg NEB Q1H PRN Magnesium Sulfate/Water [Magnesium Sulfate 2 GM in Med 02/24/17 06:50 Active Water 50 ML] 2 gm Premix Bag 1 bag IV ONETIME Blood Culture x2 Reflex Set [OM.PC] Urgent Oth 02/24/17 06:42 Ordered EKG 12 Lead [EK] Urgent Ther 02/24/17 06:07 Ordered Medication Orders Albuterol (Proventil Neb Soln) 2.5 mg NEB Q1H PRN PRN Reason: Shortness of Breath Last Admin: 02/24/17 06:16 Dose: 2.5 mg Magnesium Sulfate 2 gm/ Premix 50 mls @ 12.5 mls/hr IV ONETIME ONE Stop: 02/24/17 10:49 Last Admin: 02/24/17 07:30 Dose: 12.5 mls/hr Labs: Laboratory Tests 02/24/17 02/24/17 02/24/17 Range/Units 06:11 06:30 06:30 WBC 18.0 H (4.5-11.0) K/uL RBC 4.91 (4.30-5.90) M/uL Hgb 13.3 (12.0-15.0) g/dL Hct 41.5 (40.0-54.0) % MCV 85 (80-98) fL MCH 27 (27-31) pg MCHC 32 (32-36) % Plt Count 347 (150-400) K/uL Neut % (Auto) 76 H (36-66) % Lymph % (Auto) 8 L (24-44) % [place] % (Auto) 10 H (2-6) % Eos % (Auto) 5 H (2-4) % Baso % (Auto) 0 (0-1) % Puncture Site Lt radial ABG pH 7.304 L (7.350-7.450) ABG pCO2 52.1 H (35.0-42.0) mmHg ABG pO2 191.0 H (75.0-100.0) mmHg ABG HCO3 25.1 (22.0-26.0) mmol/L ABG Total CO2 22.8 L (23.0-27.0) mmol/L ABG O2 Saturation 99.2 H (95.0-98.0) % ABG O2 Content 18.6 (15.0-23.0) %vol ABG Base Excess -1.4 mm/L ABG Hemoglobin 13.3 L (13.5-18.0) g/dL ABG Oxyhemoglobin 97.4 % ABG Carboxyhemoglobin 1.2 (0.0-1.6) % ABG Methemoglobin 0.6 % Ever Test Passed O2 Delivery Device Nasal cannula Oxygen Flow Rate L Sodium 143 (140-148) mmol/L Potassium 3.9 (3.6-5.2) mmol/L Chloride 103 (100-108) mmol/L Carbon Dioxide 27 (21-32) mmol/L Anion Gap 12.9 (5.0-14.0) mmol/L BUN 21 H (7-18) mg/dL Creatinine 1.3 (0.8-1.3) mg/dL Est Cr Clr Drug Dosing 36.79 mL/min Estimated GFR (MDRD) 53 L (>60) Glucose 145 H (74-106) mg/dL Lactic Acid (0.4-2.0) mmol/L Calcium 8.9 (8.5-10.1) mg/dL Magnesium (1.8-2.4) mg/dL Total Bilirubin 0.2 (0.2-1.0) mg/dL AST 20 (15-37) U/L ALT 23 (12-78) U/L Alkaline Phosphatase 82 (46-116) U/L Troponin I 0.081 H* (0.000-0.056) ng/mL NT-Pro-B Natriuret Pep (5-450) pg/mL Total Protein 7.8 (6.4-8.2) g/dL Albumin 3.8 (3.4-5.0) g/dL Globulin 4.0 H (2.3-3.5) g/dL Albumin/Globulin Ratio 1.0 L (1.2-2.2) 02/24/17 02/24/17 02/24/17 Range/Units 06:30 06:30 06:34 WBC (4.5-11.0) K/uL RBC (4.30-5.90) M/uL Hgb (12.0-15.0) g/dL Hct (40.0-54.0) % MCV (80-98) fL MCH (27-31) pg MCHC (32-36) % Plt Count (150-400) K/uL Neut % (Auto) (36-66) % Lymph % (Auto) (24-44) % [place] % (Auto) (2-6) % Eos % (Auto) (2-4) % Baso % (Auto) (0-1) % Puncture Site ABG pH (7.350-7.450) ABG pCO2 (35.0-42.0) mmHg ABG pO2 (75.0-100.0) mmHg ABG HCO3 (22.0-26.0) mmol/L ABG Total CO2 (23.0-27.0) mmol/L ABG O2 Saturation (95.0-98.0) % ABG O2 Content (15.0-23.0) %vol ABG Base Excess mm/L ABG Hemoglobin (13.5-18.0) g/dL ABG Oxyhemoglobin % ABG Carboxyhemoglobin (0.0-1.6) % ABG Methemoglobin % Ever Test O2 Delivery Device Oxygen Flow Rate L Sodium (140-148) mmol/L Potassium (3.6-5.2) mmol/L Chloride (100-108) mmol/L Carbon Dioxide (21-32) mmol/L Anion Gap (5.0-14.0) mmol/L BUN (7-18) mg/dL Creatinine (0.8-1.3) mg/dL Est Cr Clr Drug Dosing mL/min Estimated GFR (MDRD) (>60) Glucose (74-106) mg/dL Lactic Acid 3.3 H (0.4-2.0) mmol/L Calcium (8.5-10.1) mg/dL Magnesium 2.2 (1.8-2.4) mg/dL Total Bilirubin (0.2-1.0) mg/dL AST (15-37) U/L ALT (12-78) U/L Alkaline Phosphatase (46-116) U/L Troponin I (0.000-0.056) ng/mL NT-Pro-B Natriuret Pep 1361 H (5-450) pg/mL Total Protein (6.4-8.2) g/dL Albumin (3.4-5.0) g/dL Globulin (2.3-3.5) g/dL Albumin/Globulin Ratio (1.2-2.2) Meds: Medications Generic Name Dose Route Start Last Admin Trade Name Freq PRN Reason Stop Dose Admin Albuterol 2.5 mg 02/24/17 06:04 02/24/17 06:16 Proventil Neb Soln NEB 2.5 mg Q1H PRN Administration Shortness of Breath Magnesium Sulfate 2 gm/ Premix 50 mls @ 12.5 mls/hr 02/24/17 06:50 02/24/17 07:30 IV 02/24/17 10:49 12.5 mls/hr ONETIME ONE Administration Discontinued Medications Generic Name Dose Route Start Last Admin Trade Name Freq PRN Reason Stop Dose Admin Albuterol/Ipratropium 3 ml 02/24/17 05:51 02/24/17 05:53 Duoneb 3.0-0.5 Mg/3 Ml NEB 02/24/17 05:52 3 ml ONETIME ONE Administration Albuterol/Ipratropium Confirm 02/24/17 05:49 02/24/17 05:53 Duoneb 3.0-0.5 Mg/3 Ml Administered 02/24/17 05:50 Not Given Dose 3 ml .ROUTE .STK-MED ONE Diltiazem HCl 15 mg 02/24/17 06:47 02/24/17 06:51 Diltiazem IVPUSH 02/24/17 06:48 15 mg ONETIME ONE Administration Diltiazem HCl Confirm 02/24/17 06:47 02/24/17 06:51 Diltiazem Administered 02/24/17 06:48 Not Given Dose 25 mg .ROUTE .STK-MED ONE Sodium Chloride 500 mls @ 999 mls/hr 02/24/17 06:53 02/24/17 06:55 Normal Saline IV 02/24/17 07:23 999 mls/hr .BOLUS ONE Administration Methylprednisolone Sodium Succinate Confirm 02/24/17 06:02 02/24/17 06:37 Solu-Medrol Administered 02/24/17 06:03 Not Given Dose 125 mg .ROUTE .STK-MED ONE Methylprednisolone Sodium Succinate 125 mg 02/24/17 06:30 02/24/17 06:10 Solu-Medrol IVPUSH 02/24/17 06:31 125 mg ONETIME ONE Administration - Re-Assessments/Exams Free Text/Narrative Re-Assessment/Exam: 02/24/17 07:06 Patient was seen and examined shortly after arrival. Started on routing equipment tender. Was given DuoNeb. And 125 mg IV Solu Medrol. Lab and imaging has been ordered. I also ordered BiPAP that is getting started now. EKG shows sinus tachycardia and his blood pressure was elevated and 227/127. The patient was given 50 mg IV Cardizem and his heart slowed down to 120 which looks more like a sinus tachycardia. And his blood pressure improved down to 150/90. Chest x- ray shows no acute finding. No infiltrates. No pleural effusion. There is pending I did order 500 mL normal saline bolus. I did also order 2 g mag sulfate. Symptoms improved . I don't think he needs to be intubated at this point however if he did not continue to improve then we should consider intubation. Patient care was transferred to Dr. De La Paz at time shift exchange in a stable condition. 02/24/17 07:11 Departure - Departure Time of Disposition: 07:13 Disposition: Admitted As Inpatient 68 Clinical Impression: COPD with exacerbation, Bronchospasm Metastatic cancer to lung Qualifiers: Laterality: unspecified laterality Qualified Code(s): C78.00 - Secondary malignant neoplasm of unspecified lung - Discharge Information Referrals: Jorge Luis Saldana MD [Primary Care Provider] - Forms: ED Department Discharge Care Plan Goals: Patient is to be evaluated by the hospitalist service for admission for treatment of persistent reactive airways and COPD exacerbation. <Jorge Luis Luna - Last Filed: 02/24/17 08:26> Course - Re-Assessments/Exams Free Text/Narrative Re-Assessment/Exam: 02/24/17 08:23 Patient care received from Dr. Brown. He slowly improved but still found it difficult to go without BiPAP. Dr. Abraham of the hospitalist saw him and evaluated him for admission for COPD exacerbation and respiratory distress. Departure - Departure Condition: Fair
[2017-02-24] MEDS ORDERED: methylPREDNISolone Sodium Succinate 125 MG/2 ML SDV IVPUSH ONE (06:30)
[2017-02-24] MEDS ORDERED: Diltiazem 25 MG/5 ML SDV IVPUSH ONE (06:47)
[2017-02-24] MEDS ORDERED: Diltiazem 25 MG/5 ML SDV ONE (06:47)
[2017-02-24] MEDS ORDERED: Magnesium Sulfate/Water 2 GM in Premix Bag 1 BAG IV ONE (06:50)
[2017-02-24] MEDS ORDERED: Sodium Chloride 0.9% 500 ML IV ONE (06:53)
[2017-02-24] MEDS ORDERED: cefTRIAXone 2 GM in Sodium Chloride 0.9% 50 ML IV SCH (08:30)
[2017-02-24] MEDS ORDERED: Sodium Chloride 0.9% 1,000 ML IV SCH (08:45)
--- NOTE | 2017-02-24 08:50 | PCM.HP ---
H&P History of Present Illness - General Date of Service: 02/24/17 Admit Problem/Dx: Admission Diagnosis/Problem Admission Diagnosis/Problem Acute exacerbation of chronic obstructive airways disease Source of Information: Patient, Provider History Limitations: Reports: No Limitations - History of Present Illness Initial Comments - Free Text/Narative: Daron presents to the ED today with severe shortness of breath. He first noticed mild shortness of breath a few days ago and was seen in the emergency room 2 days ago. There is no evidence for infection at that time and he was started on prednisone for a presumed COPD exacerbation. He had recently been treated with radiation for his lung cancer and neck mass. He has not had any fevers at home. He has only a mild dry cough at this time. No reports of chest pain or pleuritic chest pain. No recent change in bowel or bladder habits. No obvious sick contacts that he is aware of. He felt better the first day after starting the prednisone but has been getting worse since that time. Upon arrival to the emergency room he was noted to be in respiratory distress. Workup in the emergency room revealed mild respiratory acidosis and hypercapnia based on arterial blood gases. Laboratory studies were otherwise unrevealing with the exception of an elevated white count and elevated lactic acid. Troponin level was very mildly elevated. Chest x-ray was clear. Respiratory status did improve some with noninvasive ventilation. He will be admitted to the intensive care unit. - Related Data Allergies/Adverse Reactions: Allergies Allergy/AdvReac Type Severity Reaction Status Date / Time amoxicillin Allergy Rash Verified 02/24/17 05:47 influenza virus vaccine, Allergy Other Verified 02/24/17 05:47 specific Penicillins Allergy Rash Verified 02/24/17 05:47 colesevelam AdvReac Stomach Verified 02/24/17 05:47 Upset piroxicam [From Feldene] AdvReac Nausea and Verified 02/24/17 05:47 Vomiting [id number]-[id number] Reductase AdvReac Muscle Verified 02/24/17 05:47 Inhibitor Aches Home Medications: Home Meds Albuterol Sulfate [Proair Hfa] 2 puff IH QID 05/01/16 [History] Azelastine/Fluticasone [Dymista Nasal [place]] 2 puff NS BID 05/01/16 [History] Budesonide [Pulmicort Flexhaler] 2 puff IH BID 05/01/16 [History] Fluticasone Propionate [Flonase] 2 spray INH BID 05/01/16 [History] Niacinamide [Niacin] 500 mg PO DAILY 05/01/16 [History] Aspirin [Children's Aspirin] 81 mg PO DAILY 09/18/16 [History] Tiotropium [Spiriva HandiHaler] 18 mcg INH DAILY 12/26/16 [History] Albuterol [Proventil Neb Soln] 1 dose INH Q6H PRN 02/24/17 [History] predniSONE [Prednisone] 20 mg PO DAILY 02/24/17 [History] Past Medical History HEENT History: Reports: Allergic Rhinitis, Cataract, Hard of Hearing, Impaired Vision Cardiovascular History: Reports: High Cholesterol Respiratory History: Reports: Asthma, Other (See Below) Other Respiratory History: lung cancer Gastrointestinal History: Reports: Hemorrhoids Genitourinary History: Reports: Retention, Urinary Other Genitourinary History: came with a starkey catheter and leg bag Musculoskeletal History: Reports: Arthritis Oncologic (Cancer) History: Reports: Lung, Other (See Below) Other Oncologic History: port a cath placed on right side Dermatologic History: Reports: Eczema - Infectious Disease History Infectious Disease History: Reports: Chicken Pox, Measles, Mumps - Past Surgical History Respiratory Surgical History: Reports: Lung Biopsies GI Surgical History: Reports: Colonoscopy, Other (See Below) Other GI Surgeries/Procedures: hemorrhoidectomy Social & Family History - Family History Family Medical History: Noncontributory - Tobacco Use Smoking Status *Q: Former Smoker Years of Tobacco use: 65 Packs/Tins Daily: 0.5 Used Tobacco, but Quit: Yes Month Tobacco Last Used: may Second Hand Smoke Exposure: No - Caffeine Use Caffeine Use: Reports: Coffee - Alcohol Use Days Per Week of Alcohol Use: 7 Number of Drinks Per Day: 1 Total Drinks Per Week: 7 - Recreational Drug Use Recreational Drug Use: No H&P Review of Systems - Review of Systems: Review Of Systems: See Below Free Text/Narrative: A complete 12 point review of systems was obtained. Pertinent positives and negatives are noted in the history of present illness. All other systems were reviewed and were negative except as noted. Exam - Exam Exam: See Below - Vital Signs Vital Signs: Last Vital Signs Temp 36.7 C 02/24/17 05:45 Pulse 125 H 02/24/17 07:56 Resp 22 H 02/24/17 07:56 BP 189/109 H 02/24/17 07:56 Pulse Ox 98 02/24/17 07:56 Weight: 62.2 kg - Exam Quality Assessment: Supplemental Oxygen. No: Urinary Catheter General: Alert, Oriented, Cooperative, Mild Distress HEENT: Conjunctiva Clear. No: Mucosa Moist & [place], Scleral Icterus Neck: Supple, Trachea Midline. No: Lymphadenopathy Lungs: Rhonchi (mild throughout), Wheezing (diffuse exp wheezing ). No: Normal Respiratory Effort, Rales Cardiovascular: Regular Rhythm, Tachycardia. No: Systolic Murmur GI/Abdominal Exam: Normal Bowel Sounds, Soft, Non-Tender, No Distention Back Exam: Normal Inspection Extremities: Normal Inspection, No Pedal Edema. No: Leg Pain, Increased Warmth Peripheral Pulses: 2+: Dorsalis Pedis (L), Dorsalis Pedis (R) Skin: Warm, Dry, Intact Neuro Extensive - Mental Status: Alert, Oriented x3, Nl Response to Commands Neuro Extensive - Motor, Sensory, Reflexes: No: Dysarthria, Abnormal Motor, Tremor Psychiatric: Alert, Normal Affect, Normal Mood - Patient Data Lab Results Last 24 hrs: Laboratory Results - last 24 hr 02/24/17 02/24/17 02/24/17 Range/Units 06:11 06:30 06:30 WBC 18.0 H (4.5-11.0) K/uL RBC 4.91 (4.30-5.90) M/uL Hgb 13.3 (12.0-15.0) g/dL Hct 41.5 (40.0-54.0) % MCV 85 (80-98) fL MCH 27 (27-31) pg MCHC 32 (32-36) % Plt Count 347 (150-400) K/uL Neut % (Auto) 76 H (36-66) % Lymph % (Auto) 8 L (24-44) % [place] % (Auto) 10 H (2-6) % Eos % (Auto) 5 H (2-4) % Baso % (Auto) 0 (0-1) % Puncture Site Lt radial ABG pH 7.304 L (7.350-7.450) ABG pCO2 52.1 H (35.0-42.0) mmHg ABG pO2 191.0 H (75.0-100.0) mmHg ABG HCO3 25.1 (22.0-26.0) mmol/L ABG Total CO2 22.8 L (23.0-27.0) mmol/L ABG O2 Saturation 99.2 H (95.0-98.0) % ABG O2 Content 18.6 (15.0-23.0) %vol ABG Base Excess -1.4 mm/L ABG Hemoglobin 13.3 L (13.5-18.0) g/dL ABG Oxyhemoglobin 97.4 % ABG Carboxyhemoglobin 1.2 (0.0-1.6) % ABG Methemoglobin 0.6 % Ever Test Passed O2 Delivery Device Nasal cannula Oxygen Flow Rate L Sodium 143 (140-148) mmol/L Potassium 3.9 (3.6-5.2) mmol/L Chloride 103 (100-108) mmol/L Carbon Dioxide 27 (21-32) mmol/L Anion Gap 12.9 (5.0-14.0) mmol/L BUN 21 H (7-18) mg/dL Creatinine 1.3 (0.8-1.3) mg/dL Est Cr Clr Drug Dosing 36.79 mL/min Estimated GFR (MDRD) 53 L (>60) Glucose 145 H (74-106) mg/dL Lactic Acid (0.4-2.0) mmol/L Calcium 8.9 (8.5-10.1) mg/dL Magnesium (1.8-2.4) mg/dL Total Bilirubin 0.2 (0.2-1.0) mg/dL AST 20 (15-37) U/L ALT 23 (12-78) U/L Alkaline Phosphatase 82 (46-116) U/L Troponin I 0.081 H* (0.000-0.056) ng/mL NT-Pro-B Natriuret Pep (5-450) pg/mL Total Protein 7.8 (6.4-8.2) g/dL Albumin 3.8 (3.4-5.0) g/dL Globulin 4.0 H (2.3-3.5) g/dL Albumin/Globulin Ratio 1.0 L (1.2-2.2) 02/24/17 02/24/17 02/24/17 Range/Units 06:30 06:30 06:34 WBC (4.5-11.0) K/uL RBC (4.30-5.90) M/uL Hgb (12.0-15.0) g/dL Hct (40.0-54.0) % MCV (80-98) fL MCH (27-31) pg MCHC (32-36) % Plt Count (150-400) K/uL Neut % (Auto) (36-66) % Lymph % (Auto) (24-44) % [place] % (Auto) (2-6) % Eos % (Auto) (2-4) % Baso % (Auto) (0-1) % Puncture Site ABG pH (7.350-7.450) ABG pCO2 (35.0-42.0) mmHg ABG pO2 (75.0-100.0) mmHg ABG HCO3 (22.0-26.0) mmol/L ABG Total CO2 (23.0-27.0) mmol/L ABG O2 Saturation (95.0-98.0) % ABG O2 Content (15.0-23.0) %vol ABG Base Excess mm/L ABG Hemoglobin (13.5-18.0) g/dL ABG Oxyhemoglobin % ABG Carboxyhemoglobin (0.0-1.6) % ABG Methemoglobin % Ever Test O2 Delivery Device Oxygen Flow Rate L Sodium (140-148) mmol/L Potassium (3.6-5.2) mmol/L Chloride (100-108) mmol/L Carbon Dioxide (21-32) mmol/L Anion Gap (5.0-14.0) mmol/L BUN (7-18) mg/dL Creatinine (0.8-1.3) mg/dL Est Cr Clr Drug Dosing mL/min Estimated GFR (MDRD) (>60) Glucose (74-106) mg/dL Lactic Acid 3.3 H (0.4-2.0) mmol/L Calcium (8.5-10.1) mg/dL Magnesium 2.2 (1.8-2.4) mg/dL Total Bilirubin (0.2-1.0) mg/dL AST (15-37) U/L ALT (12-78) U/L Alkaline Phosphatase (46-116) U/L Troponin I (0.000-0.056) ng/mL NT-Pro-B Natriuret Pep 1361 H (5-450) pg/mL Total Protein (6.4-8.2) g/dL Albumin (3.4-5.0) g/dL Globulin (2.3-3.5) g/dL Albumin/Globulin Ratio (1.2-2.2) Result Diagrams: 02/24/17 06:30 02/24/17 06:30 Imaging Impressions Last 24 hrs: CXR - images personally reviewed - there is hyperinflation. No mass, infiltrate , effusion or chf. Heart size is normal. EKG INTERPRETATION EKG Date: 02/24/17 Rhythm: Other (sinus tachycardia) Rate (Beats/Min): 144 [place]: RAD-Right [place] Deviation P-Wave: Present QRS: Normal ST-T: Normal QT: Normal *Q Meaningful Use (ADM) - VTE *Q VTE Criteria *Q: - VTE Risk Assess *Q Each Risk Factor Represents 1 Point: Abnormal Pulmonary Function (COPD) Total Score 1 Point Risk Factors: 1 Each Risk Factor Represents 2 Points: None Total Score 2 Point Risk Factors: 0 Each Risk Factor Represents 3 Points: Age 75 Years or Greater, Present Cancer or Chemotherapy Total Score 3 Point Risk Factors: 6 Each Risk Factor Represents 5 Points: None Total Score 5 Point Risk Factors: 0 Venous Thromboembolism Risk Factor Score *Q: 7 - Stroke *Q Stroke Criteria *Q: - AMI *Q AMI Criteria *Q: - Problem List (1) Acute respiratory failure with hypoxia and hypercapnia SNOMED Code(s): 19412870, 100014569 ICD Code: J96.01 - ACUTE RESPIRATORY FAILURE WITH HYPOXIA; J96.02 - ACUTE RESPIRATORY FAILURE WITH HYPERCAPNIA Status: Acute Current Visit: Yes (2) Acute exacerbation of chronic obstructive airways disease SNOMED Code(s): 024613464 ICD Code: J44.1 - CHRONIC OBSTRUCTIVE PULMONARY DISEASE W (ACUTE) EXACERBATION Status: Acute Current Visit: Yes (3) Elevated troponin SNOMED Code(s): 581325341, 798697050 ICD Code: R74.8 - ABNORMAL LEVELS OF OTHER SERUM ENZYMES Status: Acute Current Visit: Yes (4) Cancer of lung SNOMED Code(s): 438505324 ICD Code: C34.90 - MALIGNANT NEOPLASM OF UNSP PART OF UNSP BRONCHUS OR LUNG Status: Chronic Current Visit: No Qualifiers: Laterality: unspecified laterality Lung location: unspecified part of lung Qualified Code(s): C34.90 - Malignant neoplasm of unspecified part of unspecified bronchus or lung Problem List Initiated/Reviewed/Updated: Yes Orders Last 24hrs: Active Orders 24 hr Category Date Time Status Patient Status Manage Transfer [TRANSFER] Routine ADT 02/24/17 08:33 Ordered Cardiac Monitoring [RC] .As Directed Care 02/24/17 06:24 Active EKG Documentation Completion [RC] ASDIRECTED Care 02/24/17 06:10 Active RT Aerosol Therapy [RC] ASDIRECTED Care 02/24/17 05:51 Active RT Aerosol Therapy [RC] ASDIRECTED Care 02/24/17 06:06 Active Chest 1V Frontal [CR] Urgent Exams 02/24/17 06:07 Taken Chest w Cont [CT] Stat Exams 02/24/17 08:30 Ordered CULTURE BLOOD [BC] Urgent Lab 02/24/17 07:10 Received CULTURE BLOOD [BC] Urgent Lab 02/24/17 07:20 Received Albuterol [Proventil Neb Soln] Med 02/24/17 06:04 Active 2.5 mg NEB Q1H PRN Magnesium Sulfate/Water [Magnesium Sulfate 2 GM in Med 02/24/17 06:50 Active Water 50 ML] 2 gm Premix Bag 1 bag IV ONETIME Sodium Chloride 0.9% [Normal Saline] 1,000 ml Med 02/24/17 08:45 Active IV ASDIRECTED cefTRIAXone [Rocephin] 2 gm Med 02/24/17 08:30 Active Sodium Chloride 0.9% [Normal Saline] 50 ml IV Q24H Blood Culture x2 Reflex Set [OM.PC] Urgent Oth 02/24/17 06:42 Ordered Resuscitation Status Routine Resus Stat 02/24/17 08:35 Ordered EKG 12 Lead [EK] Urgent Ther 02/24/17 06:07 Ordered Medication Orders Albuterol (Proventil Neb Soln) 2.5 mg NEB Q1H PRN PRN Reason: Shortness of Breath Last Admin: 02/24/17 06:16 Dose: 2.5 mg Magnesium Sulfate 2 gm/ Premix 50 mls @ 12.5 mls/hr IV ONETIME ONE Stop: 02/24/17 10:49 Last Admin: 02/24/17 07:30 Dose: 12.5 mls/hr Ceftriaxone Sodium 2 gm/ (Sodium Chloride) 50 mls @ 100 mls/hr IV Q24H [facility] Sodium Chloride (Normal Saline) 1,000 mls @ 999 mls/hr IV ASDIRECTED [facility] Stop: 02/24/17 09:46 Assessment/Plan Comment:: Assessment and plan - Acute exacerbation of COPD with hypoxic and hypercapnic respiratory failure - no strong evidence for infection at this time though bronchitis is a possibility. Radiation injury could be contributing. CT pulmonary angiogram did not show evidence for pulmonary embolus. No evidence for pneumonia. I suspect the tachycardia and mild troponin elevation are a result of his respiratory issues. -Continue noninvasive ventilation -Solu-Medrol -Pulmicort -Empiric anabiotic coverage with ceftriaxone and azithromycin -Sputum culture if able -Scheduled and as needed nebulizers -Repeat lactic acid level after hydration Elevated troponin - mild elevation, probably secondary to tachycardia and hypoxia. No symptoms to suggest acute coronary syndrome. EKG did not suggest ACS. 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 Has been receiving radiation therapy recently. Most recent chemotherapy was months ago. -Outpatient follow-up Maintenance issues - - DVT prophylaxis - enoxaparin - GI prophylaxis - PPI - Nutrition - regular diet as tolerated - Starkey catheter - not indicated CODE STATUS - full code - I personally reviewed with the patient his wishes regarding CPR and mechanical ventilation at the bedside at the time of admission. Admission justification - This patient will be admitted for inpatient services and is medically appropriate meeting medical necessity for inpatient admission as outlined in my documentation. I reasonably expect the patient will require inpatient services that span a period time over 2 midnights. I reasonably expect this patient to be discharged or transferred within 96 hours [facility] Disposition - anticipate discharge to home after the hospital stay. 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 There are no children who live close by to help out unfortunately. Primary care physician - Dr. Shana Abraham M.D.
[2017-02-24] MEDS ORDERED: Sodium Chloride 0.9% 10 ML Syringe FLUSH ONE (09:11)
[2017-02-24] MEDS ORDERED: Iopamidol 755 Mg/ML 100 ML Bottle IV SCH (09:15)
[2017-02-24] MEDS ORDERED: Polyethylene Glycol 3350 Powder 17 GM Packet PO PRN (10:03)
[2017-02-24] MEDS ORDERED: Morphine 2 MG/ML Syringe IVPUSH PRN (10:03)
[2017-02-24] MEDS ORDERED: Acetaminophen 325 MG Tab PO PRN (10:03)
[2017-02-24] MEDS ORDERED: Ondansetron 4 MG/2 ML SDV IV PRN (10:03)
[2017-02-24] MEDS ORDERED: Ondansetron 4 MG Tab.DIS PO PRN (10:03)
[2017-02-24] MEDS: cefTRIAXone 2 GM in Sodium Chloride 0.9% 50 ML IV SCH (10:10)
[2017-02-24] MEDS: Budesonide 0.5 MG/2 ML Neb Susp NEB SCH ×2 (10:34→21:39)
[2017-02-24] MEDS: Albuterol/Ipratropium 3.0-0.5 MG/3 ML Neb Soln NEB SCH ×3 (10:35→21:40)
[2017-02-24] MEDS: Azithromycin 500 MG in Sodium Chloride 0.9% 250 ML IV SCH (10:42)
[2017-02-24] MEDS: Sodium Chloride 0.9% 1,000 ML IV SCH ×2 (10:44→19:52)
--- NOTE | 2017-02-24 11:15 | CR ---
Chest 1V Frontal INDICATION: sob COMPARISON: 02/22/2017 FINDINGS: Single portable view of the chest. Heart size normal. Port-A-Cath remains in place. No in filtrates pleural effusions or signs of pulmonary edema. IMPRESSION: No acute change since 02/22/2017.
[2017-02-24] MEDS: methylPREDNISolone Sodium Succinate 125 MG/2 ML SDV IVPUSH SCH ×2 (12:08→17:38)
[2017-02-24] MEDS: Aspirin 81 MG Tab.Chew PO SCH (12:08)
--- NOTE | 2017-02-24 13:52 | CT ---
Ang Chest INDICATION: hypoxic resp failure, lung cancer, r/o PE TECHNIQUE: CT chest performed with IV contrast using CTA protocol. 3D radial and/or 3D sagittal MIP images reconstructions were obtained and reviewed. DLP: 337 mGycm COMPARISON: CT 12/17/2016 FINDINGS: No evidence of pulmonary embolism. Thoracic aorta normal caliber. Mass at the base of the n bobo is again seen, only partially visualized, and appears grossly unchanged. Right paratracheal lymph node increased measuring 2.9 x 2.2 cm, previously 1.7 x 1.3 cm. Right hilar lymph nodes stable. Slig ht decrease in pericardial effusion. 6 mm nodule right apex unchanged. Scarring right upper lobe unch anged. No new suspicious pulmonary nodules seen. Water density cysts right kidney again noted. IMPRESSION: 1. No evidence of pulmonary embolism. 2. Mass at the base of the neck again noted. Unable to obtain precise measurement since this is not c ompletely imaged. 3. Increased size of right paratracheal mediastinal lymph node since 12/17/2016.
[2017-02-24] MEDS: LORazepam 2 MG/ML MDV IVPUSH PRN ×2 (14:30→22:30)
[2017-02-24] MEDS: Enoxaparin 40 MG/0.4 ML Syringe SUBCUT SCH (17:06)
[2017-02-24] MEDS: Codeine/guaiFENesin 100mg-10 MG/5 ML Syrup 10 ML Cup PO PRN ×2 (17:57→21:53)
[2017-02-25] MEDS: methylPREDNISolone Sodium Succinate 125 MG/2 ML SDV IVPUSH SCH ×5 (00:50→23:48)
[2017-02-25] MEDS: Sodium Chloride 0.9% 1,000 ML IV SCH ×2 (04:09→22:02)
[2017-02-25] MEDS: LORazepam 2 MG/ML MDV IVPUSH PRN ×2 (04:18→12:30)
[2017-02-25] MEDS: Albuterol/Ipratropium 3.0-0.5 MG/3 ML Neb Soln NEB SCH ×4 (07:18→20:39)
[2017-02-25] MEDS: Budesonide 0.5 MG/2 ML Neb Susp NEB SCH ×2 (07:18→20:39)
[2017-02-25] MEDS: Pantoprazole 40 MG Tab.CR PO SCH (08:04)
--- NOTE | 2017-02-25 09:17 | PCM.PN ---
- General Info Date of Service: 02/25/17 Functional Status: Reports: Pain Controlled, Tolerating Diet - Review of Systems General: Reports: Weakness Pulmonary: Reports: Shortness of Breath Systems Review Comment:: No acute events overnight. He was on NIPPV most of the night but is off this morning. Oxygen saturations acceptable on 2 L. He continues to be tachycardic with heart rate has been slowly improving overnight. No significant fevers. He does continue to cough. No complaints of chest pain or abdominal pain. - Patient Data Vitals - Most Recent: Last Vital Signs Temp 36.4 C 02/25/17 07:00 Pulse 121 H 02/25/17 08:55 Resp 20 02/25/17 08:55 BP 150/69 H 02/25/17 08:55 Pulse Ox 98 02/25/17 08:57 Weight - Most Recent: 62.2 kg I&O - Last 24 Hours: Intake & Output 02/24/17 02/25/17 02/25/17 22:59 06:59 14:59 Intake Total 2320 1565 Output Total 1050 300 Balance 1270 1565 -300 Lab Results Last 24 Hours: Laboratory Results - last 24 hr 02/24/17 02/24/17 02/25/17 Range/Units 11:20 11:20 04:40 WBC 8.4 (4.5-11.0) K/uL RBC 3.86 L (4.30-5.90) M/uL Hgb 10.2 L D (12.0-15.0) g/dL Hct 33.2 L (40.0-54.0) % MCV 86 (80-98) fL MCH 26 L (27-31) pg MCHC 31 L (32-36) % Plt Count 216 (150-400) K/uL Sodium (140-148) mmol/L Potassium (3.6-5.2) mmol/L Chloride (100-108) mmol/L Carbon Dioxide (21-32) mmol/L Anion Gap (5.0-14.0) mmol/L BUN (7-18) mg/dL Creatinine (0.8-1.3) mg/dL Est Cr Clr Drug Dosing mL/min Estimated GFR (MDRD) (>60) Glucose (74-106) mg/dL Lactic Acid 3.4 H (0.4-2.0) mmol/L Calcium (8.5-10.1) mg/dL Magnesium (1.8-2.4) mg/dL Troponin I 0.077 H* (0.000-0.056) ng/mL 02/25/17 Range/Units 04:40 WBC (4.5-11.0) K/uL RBC (4.30-5.90) M/uL Hgb (12.0-15.0) g/dL Hct (40.0-54.0) % MCV (80-98) fL MCH (27-31) pg MCHC (32-36) % Plt Count (150-400) K/uL Sodium 142 (140-148) mmol/L Potassium 4.1 (3.6-5.2) mmol/L Chloride 107 (100-108) mmol/L Carbon Dioxide 27 (21-32) mmol/L Anion Gap 7.8 (5.0-14.0) mmol/L BUN 19 H (7-18) mg/dL Creatinine 1.0 (0.8-1.3) mg/dL Est Cr Clr Drug Dosing 47.76 mL/min Estimated GFR (MDRD) > 60 (>60) Glucose 161 H (74-106) mg/dL Lactic Acid (0.4-2.0) mmol/L Calcium 8.2 L (8.5-10.1) mg/dL Magnesium 2.1 (1.8-2.4) mg/dL Troponin I (0.000-0.056) ng/mL Med Orders - Current: Current Medications Acetaminophen (Tylenol) 650 mg PO Q4H PRN PRN Reason: Pain (Mild 1-3)/fever Last Admin: 02/24/17 21:37 Dose: 650 mg Albuterol (Proventil Neb Soln) 2.5 mg NEB Q2H PRN PRN Reason: Shortness Of Breath/wheezing Albuterol/Ipratropium (Duoneb 3.0-0.5 Mg/3 Ml) 3 ml NEB QIDRT [facility] Last Admin: 02/25/17 07:18 Dose: 3 ml Aspirin (Aspirin) 81 mg PO DAILY [facility] Last Admin: 02/24/17 12:08 Dose: 81 mg Budesonide (Pulmicort) 0.5 mg NEB BIDRT [facility] Last Admin: 02/25/17 07:18 Dose: 0.5 mg Enoxaparin Sodium (Lovenox) 40 mg SUBCUT DAILY@1600 [facility] Last Admin: 02/24/17 17:06 Dose: 40 mg Guaifenesin/Codeine Phosphate (Robitussin Ac) 10 ml PO Q4H PRN PRN Reason: Cough Last Admin: 02/24/17 21:53 Dose: 10 ml Ceftriaxone Sodium 2 gm/ (Sodium Chloride) 50 mls @ 100 mls/hr IV Q24H [facility] Last Admin: 02/24/17 10:10 Dose: 100 mls/hr Azithromycin 500 mg/ Sodium (Chloride) 250 mls @ 250 mls/hr IV Q24H [facility] Last Admin: 02/24/17 10:42 Dose: 250 mls/hr Sodium Chloride (Normal Saline) 1,000 mls @ 125 mls/hr IV ASDIRECTED [facility] Last Admin: 02/25/17 04:09 Dose: 125 mls/hr Lorazepam (Ativan) 0.5 - 1 mg IVPUSH Q4H PRN PRN Reason: Anxiety Last Admin: 02/25/17 04:18 Dose: 1 mg Methylprednisolone Sodium Succinate (Solu-Medrol) 62.5 mg IVPUSH Q6H [facility] Last Admin: 02/25/17 06:02 Dose: 62.5 mg Morphine Sulfate (Morphine) 2 mg IVPUSH Q2H PRN PRN Reason: Pain (severe 7-10) Ondansetron HCl (Zofran Odt) 4 mg PO Q6H PRN PRN Reason: Nausea able to take PO Ondansetron HCl (Zofran) 4 mg IV Q6H PRN PRN Reason: Nausea/Vomiting Pantoprazole Sodium (Protonix) 40 mg PO ACBREAKFAST [facility] Last Admin: 02/25/17 08:04 Dose: 40 mg Polyethylene Glycol (Miralax) 17 gm PO DAILY PRN PRN Reason: Constipation Senna/Docusate Sodium (Senna Plus) 1 tab PO BID PRN PRN Reason: Constipation Discontinued Medications Albuterol (Proventil Neb Soln) 2.5 mg NEB Q1H PRN PRN Reason: Shortness of Breath Last Admin: 02/24/17 06:16 Dose: 2.5 mg Albuterol/Ipratropium (Duoneb 3.0-0.5 Mg/3 Ml) 3 ml NEB ONETIME ONE Stop: 02/24/17 05:52 Last Admin: 02/24/17 05:53 Dose: 3 ml Albuterol/Ipratropium (Duoneb 3.0-0.5 Mg/3 Ml) Confirm Administered Dose 3 ml .ROUTE .STK-MED ONE Stop: 02/24/17 05:50 Last Admin: 02/24/17 05:53 Dose: Not Given Diltiazem HCl (Diltiazem) 15 mg IVPUSH ONETIME ONE Stop: 02/24/17 06:48 Last Admin: 02/24/17 06:51 Dose: 15 mg Diltiazem HCl (Diltiazem) Confirm Administered Dose 25 mg .ROUTE .STK-MED ONE Stop: 02/24/17 06:48 Last Admin: 02/24/17 06:51 Dose: Not Given Magnesium Sulfate 2 gm/ Premix 50 mls @ 12.5 mls/hr IV ONETIME ONE Stop: 02/24/17 10:49 Last Admin: 02/24/17 07:30 Dose: 12.5 mls/hr Sodium Chloride (Normal Saline) 500 mls @ 999 mls/hr IV .BOLUS ONE Stop: 02/24/17 07:23 Last Admin: 02/24/17 06:55 Dose: 999 mls/hr Sodium Chloride (Normal Saline) 1,000 mls @ 999 mls/hr IV ASDIRECTED [facility] Stop: 02/24/17 09:46 Sodium Chloride (Normal Saline) 84 mls @ 4 mls/sec IV ASDIRECTED [facility] Stop: 02/24/17 10:30 Last Admin: 02/24/17 09:29 Dose: 4 mls/sec Iopamidol (Isovue-370 (76%)) 100 ml IV . DIRECTED [facility] Stop: 02/24/17 10:30 Last Admin: 02/24/17 09:30 Dose: 100 ml Methylprednisolone Sodium Succinate (Solu-Medrol) Confirm Administered Dose 125 mg .ROUTE .STK-MED ONE Stop: 02/24/17 06:03 Last Admin: 02/24/17 06:37 Dose: Not Given Methylprednisolone Sodium Succinate (Solu-Medrol) 125 mg IVPUSH ONETIME ONE Stop: 02/24/17 06:31 Last Admin: 02/24/17 06:10 Dose: 125 mg Sodium Chloride (Saline Flush) 10 ml FLUSH ONETIME ONE Stop: 02/24/17 09:12 Last Admin: 02/24/17 09:29 Dose: 10 ml - Exam Quality Assessment: Supplemental Oxygen General: Alert, Oriented, Cooperative, No Acute Distress Neck: Supple Lungs: Clear to Auscultation, Normal Respiratory Effort, Other (prolonged exp phase). No: Wheezing Cardiovascular: Regular Rhythm, Tachycardia GI/Abdominal Exam: Soft, No Distention Extremities: No Pedal Edema. No: Increased Warmth Skin: Warm, Dry Psy/Mental Status: Alert, Normal Affect - Problem List & Annotations (1) Acute respiratory failure with hypoxia and hypercapnia SNOMED Code(s): 58322115, 748099238 Code(s): J96.01 - ACUTE RESPIRATORY FAILURE WITH HYPOXIA; J96.02 - ACUTE RESPIRATORY FAILURE WITH HYPERCAPNIA Status: Acute Current Visit: Yes (2) Acute exacerbation of chronic obstructive airways disease SNOMED Code(s): 531724776 Code(s): J44.1 - CHRONIC OBSTRUCTIVE PULMONARY DISEASE W (ACUTE) EXACERBATION Status: Acute Current Visit: Yes (3) Elevated troponin SNOMED Code(s): 685952391, 816778970 Code(s): R74.8 - ABNORMAL LEVELS OF OTHER SERUM ENZYMES Status: Acute Current Visit: Yes (4) Cancer of lung SNOMED Code(s): 206210556 Code(s): C34.90 - MALIGNANT NEOPLASM OF UNSP PART OF UNSP BRONCHUS OR LUNG Status: Chronic Current Visit: No Qualifiers: Laterality: unspecified laterality Lung location: unspecified part of lung Qualified Code(s): C34.90 - Malignant neoplasm of unspecified part of unspecified bronchus or lung - Problem List Review Problem List Initiated/Reviewed/Updated: Yes - My Orders Last 24 Hours: My Active Orders 02/24/17 08:35 Resuscitation Status Routine 02/24/17 09:00 cefTRIAXone [Rocephin] 2 gm Sodium Chloride 0.9% [Normal Saline] 50 ml IV Q24H 02/24/17 10:03 Patient Status [ADT] Routine BIPAP Adult [RT BiPAP/CPAP] [RC] ASDIRECTED Bedrest Bathroom Privileges [RC] ASDIRECTED Cardiac Monitoring [RC] Q6HR Intake and Output [RC] Q12H Notify Provider Vital Signs [RC] ASDIRECTED Oxygen Therapy [RC] PRN Pulse Oximetry [RC] CONTINUOUS RT Aerosol Therapy [RC] ASDIRECTED Up With Assistance [RC] ASDIRECTED VTE/DVT Education [RC] .PRN Vital Signs [RC] Q1HR CULTURE RESPIRATORY + SMEAR [RM] Routine Acetaminophen [Tylenol] 650 mg PO Q4H PRN Albuterol [Proventil Neb Soln] 2.5 mg NEB Q2H PRN Docusate Sodium/Sennosides [Senna Plus] 1 tab PO BID PRN LORazepam [Ativan] 0.5 - 1 mg IVPUSH Q4H PRN Morphine 2 mg IVPUSH Q2H PRN Ondansetron [Zofran ODT] 4 mg PO Q6H PRN Ondansetron [Zofran] 4 mg IV Q6H PRN Polyethylene Glycol 3350 [MiraLAX] 17 gm PO DAILY PRN Sodium Chloride 0.9% [Normal Saline] 1,000 ml IV ASDIRECTED 02/24/17 11:00 Albuterol/Ipratropium [DuoNeb 3.0-0.5 MG/3 ML] 3 ml NEB QIDRT Azithromycin [Zithromax] 500 mg Sodium Chloride 0.9% [Normal Saline] 250 ml IV Q24H Budesonide [Pulmicort] 0.5 mg NEB BIDRT 02/24/17 12:00 methylPREDNISolone Sod Succ [Solu-MEDROL] 62.5 mg IVPUSH Q6H 02/24/17 16:00 Enoxaparin [Lovenox] 40 mg SUBCUT DAILY@1600 02/24/17 17:50 Codeine/guaiFENesin [Robitussin AC] 10 ml PO Q4H PRN 02/25/17 07:30 Pantoprazole [ProTONIX] 40 mg PO ACBREAKFAST 02/25/17 Lunch Regular Diet [DIET] 02/26/17 05:00 BASIC METABOLIC PANEL,BMP [CHEM] Timed CBC W/O DIFF,HEMOGRAM [HEME] Timed (1) - Plan Plan:: Assessment and plan - Acute exacerbation of COPD with hypoxic and hypercapnic respiratory failure - likely trigger is either bronchitis or recent radiation. He is coughing a little bit more today. Wheezing has decreased respiratory status improving but he may still need additional noninvasive ventilation throughout the day. -Continue noninvasive ventilation as needed -Solu-Medrol -Pulmicort -Empiric anabiotic coverage with ceftriaxone and azithromycin -Sputum culture if able -Scheduled and as needed nebulizers Elevated troponin - mild elevation, probably secondary to tachycardia and hypoxia. Repeat level last night was stable. No chest pain or cardiac symptoms. -Cardiac monitoring Adenocarcinoma of the lung - locally metastatic disease. Has been receiving radiation therapy recently. Most recent chemotherapy was months ago. -Outpatient follow-up Maintenance issues - - DVT prophylaxis - enoxaparin - GI prophylaxis - PPI - Nutrition - regular diet as tolerated Disposition - anticipate discharge to home after the hospital stay. 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 There are no children who live close by to help out unfortunately but his niece has been helping. Antwon Abraham M.D.
[2017-02-25] MEDS: cefTRIAXone 2 GM in Sodium Chloride 0.9% 50 ML IV SCH (09:55)
[2017-02-25] MEDS: Aspirin 81 MG Tab.Chew PO SCH ×2 (09:55→10:50)
[2017-02-25] MEDS: Azithromycin 500 MG in Sodium Chloride 0.9% 250 ML IV SCH (11:06)
[2017-02-25] MEDS: Codeine/guaiFENesin 100mg-10 MG/5 ML Syrup 10 ML Cup PO PRN (11:06)
[2017-02-25] MEDS: Enoxaparin 40 MG/0.4 ML Syringe SUBCUT SCH (16:16)
[2017-02-26] MEDS: methylPREDNISolone Sodium Succinate 125 MG/2 ML SDV IVPUSH SCH (05:34)
[2017-02-26] MEDS: Sodium Chloride 0.9% 1,000 ML IV SCH (06:02)
[2017-02-26] MEDS: Pantoprazole 40 MG Tab.CR PO SCH (07:32)
[2017-02-26] MEDS: Budesonide 0.5 MG/2 ML Neb Susp NEB SCH ×2 (07:54→20:46)
[2017-02-26] MEDS: Albuterol/Ipratropium 3.0-0.5 MG/3 ML Neb Soln NEB SCH ×4 (07:54→20:46)
--- NOTE | 2017-02-26 09:05 | PCM.PN ---
- General Info Date of Service: 02/26/17 Functional Status: Reports: Pain Controlled, Tolerating Diet - Review of Systems General: Reports: Weakness Pulmonary: Reports: Shortness of Breath Cardiovascular: Reports: Dyspnea on Exertion Systems Review Comment:: No acute events overnight. He did well with the noninvasive ventilation and slept fairly well. Respiratory status stable on 2 L this morning. Heart rate has come down some but still rises when he is up and about. He is not having chest pain or abdominal pain. He has a dry cough. He has not been having any fevers. Wheezing has improved today. - Patient Data Vitals - Most Recent: Last Vital Signs Temp 36.3 C 02/26/17 07:00 Pulse 97 02/26/17 07:54 Resp 22 H 02/26/17 07:00 BP 176/83 H 02/26/17 07:00 Pulse Ox 97 02/26/17 07:54 Weight - Most Recent: 62.2 kg I&O - Last 24 Hours: Intake & Output 02/25/17 02/26/17 02/26/17 22:59 06:59 14:59 Intake Total 1550 1552 Output Total 725 225 Balance 825 1327 Lab Results Last 24 Hours: Laboratory Results - last 24 hr 02/26/17 02/26/17 Range/Units 06:02 06:02 WBC 12.5 H (4.5-11.0) K/uL RBC 3.85 L (4.30-5.90) M/uL Hgb 10.4 L (12.0-15.0) g/dL Hct 33.2 L (40.0-54.0) % MCV 86 (80-98) fL MCH 27 (27-31) pg MCHC 31 L (32-36) % Plt Count 232 (150-400) K/uL Sodium 144 (140-148) mmol/L Potassium 4.0 (3.6-5.2) mmol/L Chloride 110 H (100-108) mmol/L Carbon Dioxide 27 (21-32) mmol/L Anion Gap 11.0 (5.0-14.0) mmol/L BUN 19 H (7-18) mg/dL Creatinine 0.9 (0.8-1.3) mg/dL Est Cr Clr Drug Dosing 53.07 mL/min Estimated GFR (MDRD) > 60 (>60) Glucose 127 H (74-106) mg/dL Calcium 8.3 L (8.5-10.1) mg/dL Med Orders - Current: Current Medications Acetaminophen (Tylenol) 650 mg PO Q4H PRN PRN Reason: Pain (Mild 1-3)/fever Last Admin: 02/24/17 21:37 Dose: 650 mg Albuterol (Proventil Neb Soln) 2.5 mg NEB Q2H PRN PRN Reason: Shortness Of Breath/wheezing Last Admin: 02/25/17 12:19 Dose: 2.5 mg Albuterol/Ipratropium (Duoneb 3.0-0.5 Mg/3 Ml) 3 ml NEB QIDRT [facility] Last Admin: 02/26/17 07:54 Dose: 3 ml Aspirin (Aspirin) 81 mg PO DAILY [facility] Last Admin: 02/25/17 10:50 Dose: 81 mg Budesonide (Pulmicort) 0.5 mg NEB BIDRT [facility] Last Admin: 02/26/17 07:54 Dose: 0.5 mg Enoxaparin Sodium (Lovenox) 40 mg SUBCUT DAILY@1600 [facility] Last Admin: 02/25/17 16:16 Dose: 40 mg Guaifenesin/Codeine Phosphate (Robitussin Ac) 10 ml PO Q4H PRN PRN Reason: Cough Last Admin: 02/25/17 11:06 Dose: 10 ml Ceftriaxone Sodium 2 gm/ (Sodium Chloride) 50 mls @ 100 mls/hr IV Q24H [facility] Last Admin: 02/25/17 09:55 Dose: 100 mls/hr Azithromycin 500 mg/ Sodium (Chloride) 250 mls @ 250 mls/hr IV Q24H [facility] Last Admin: 02/25/17 11:06 Dose: 250 mls/hr Lorazepam (Ativan) 0.5 - 1 mg IVPUSH Q4H PRN PRN Reason: Anxiety Last Admin: 02/25/17 12:30 Dose: 1 mg Morphine Sulfate (Morphine) 2 mg IVPUSH Q2H PRN PRN Reason: Pain (severe 7-10) Ondansetron HCl (Zofran Odt) 4 mg PO Q6H PRN PRN Reason: Nausea able to take PO Ondansetron HCl (Zofran) 4 mg IV Q6H PRN PRN Reason: Nausea/Vomiting Pantoprazole Sodium (Protonix) 40 mg PO ACBREAKFAST [facility] Last Admin: 02/26/17 07:32 Dose: 40 mg Polyethylene Glycol (Miralax) 17 gm PO DAILY PRN PRN Reason: Constipation Senna/Docusate Sodium (Senna Plus) 1 tab PO BID PRN PRN Reason: Constipation Discontinued Medications Albuterol (Proventil Neb Soln) 2.5 mg NEB Q1H PRN PRN Reason: Shortness of Breath Last Admin: 02/24/17 06:16 Dose: 2.5 mg Albuterol/Ipratropium (Duoneb 3.0-0.5 Mg/3 Ml) 3 ml NEB ONETIME ONE Stop: 02/24/17 05:52 Last Admin: 02/24/17 05:53 Dose: 3 ml Albuterol/Ipratropium (Duoneb 3.0-0.5 Mg/3 Ml) Confirm Administered Dose 3 ml .ROUTE .STK-MED ONE Stop: 02/24/17 05:50 Last Admin: 02/24/17 05:53 Dose: Not Given Diltiazem HCl (Diltiazem) 15 mg IVPUSH ONETIME ONE Stop: 02/24/17 06:48 Last Admin: 02/24/17 06:51 Dose: 15 mg Diltiazem HCl (Diltiazem) Confirm Administered Dose 25 mg .ROUTE .STK-MED ONE Stop: 02/24/17 06:48 Last Admin: 02/24/17 06:51 Dose: Not Given Magnesium Sulfate 2 gm/ Premix 50 mls @ 12.5 mls/hr IV ONETIME ONE Stop: 02/24/17 10:49 Last Admin: 02/24/17 07:30 Dose: 12.5 mls/hr Sodium Chloride (Normal Saline) 500 mls @ 999 mls/hr IV .BOLUS ONE Stop: 02/24/17 07:23 Last Admin: 02/24/17 06:55 Dose: 999 mls/hr Sodium Chloride (Normal Saline) 1,000 mls @ 999 mls/hr IV ASDIRECTED [facility] Stop: 02/24/17 09:46 Sodium Chloride (Normal Saline) 84 mls @ 4 mls/sec IV ASDIRECTED [facility] Stop: 02/24/17 10:30 Last Admin: 02/24/17 09:29 Dose: 4 mls/sec Sodium Chloride (Normal Saline) 1,000 mls @ 125 mls/hr IV ASDIRECTED [facility] Last Admin: 02/26/17 06:02 Dose: 125 mls/hr Iopamidol (Isovue-370 (76%)) 100 ml IV . DIRECTED [facility] Stop: 02/24/17 10:30 Last Admin: 02/24/17 09:30 Dose: 100 ml Methylprednisolone Sodium Succinate (Solu-Medrol) Confirm Administered Dose 125 mg .ROUTE .STK-MED ONE Stop: 02/24/17 06:03 Last Admin: 02/24/17 06:37 Dose: Not Given Methylprednisolone Sodium Succinate (Solu-Medrol) 125 mg IVPUSH ONETIME ONE Stop: 02/24/17 06:31 Last Admin: 02/24/17 06:10 Dose: 125 mg Methylprednisolone Sodium Succinate (Solu-Medrol) 62.5 mg IVPUSH Q6H [facility] Last Admin: 02/26/17 05:34 Dose: 62.5 mg Sodium Chloride (Saline Flush) 10 ml FLUSH ONETIME ONE Stop: 02/24/17 09:12 Last Admin: 02/24/17 09:29 Dose: 10 ml - Exam Quality Assessment: Supplemental Oxygen General: Alert, Oriented, Cooperative, Mild Distress Neck: Supple Lungs: Normal Respiratory Effort, Other (prolonged exp phase). No: Rales, Wheezing Cardiovascular: Regular Rhythm, Tachycardia GI/Abdominal Exam: Soft, No Distention Extremities: Pedal Edema (mild bilateral pedal edema at the ankles). No: Increased Warmth Skin: Warm, Dry Psy/Mental Status: Alert, Normal Affect - Problem List & Annotations (1) Acute respiratory failure with hypoxia and hypercapnia SNOMED Code(s): 83120748, 357419693 Code(s): J96.01 - ACUTE RESPIRATORY FAILURE WITH HYPOXIA; J96.02 - ACUTE RESPIRATORY FAILURE WITH HYPERCAPNIA Status: Acute Current Visit: Yes (2) Acute exacerbation of chronic obstructive airways disease SNOMED Code(s): 071441218 Code(s): J44.1 - CHRONIC OBSTRUCTIVE PULMONARY DISEASE W (ACUTE) EXACERBATION Status: Acute Current Visit: Yes (3) Elevated troponin SNOMED Code(s): 038043820, 910054558 Code(s): R74.8 - ABNORMAL LEVELS OF OTHER SERUM ENZYMES Status: Acute Current Visit: Yes (4) Cancer of lung SNOMED Code(s): 028927274 Code(s): C34.90 - MALIGNANT NEOPLASM OF UNSP PART OF UNSP BRONCHUS OR LUNG Status: Chronic Current Visit: No Qualifiers: Laterality: unspecified laterality Lung location: unspecified part of lung Qualified Code(s): C34.90 - Malignant neoplasm of unspecified part of unspecified bronchus or lung - Problem List Review Problem List Initiated/Reviewed/Updated: Yes - My Orders Last 24 Hours: My Active Orders 02/25/17 10:23 Vital Signs [RC] Q2H 02/25/17 Lunch Regular Diet [DIET] 02/26/17 09:02 Convert IV to Saline Lock [OM.PC] Routine 02/26/17 16:30 predniSONE 20 mg PO BIDAC 02/27/17 05:00 BASIC METABOLIC PANEL,BMP [CHEM] Timed CBC W/O DIFF,HEMOGRAM [HEME] Timed (1) MAGNESIUM [CHEM] Timed - Plan Plan:: Assessment and plan - Acute exacerbation of COPD with hypoxic and hypercapnic respiratory failure - likely trigger is either bronchitis or recent radiation. He seems to be slowly improving but still fairly compromised. Did require noninvasive ventilation overnight. -Continue noninvasive ventilation as needed -Transition to prednisone -Pulmicort -Empiric antibiotic coverage with ceftriaxone and azithromycin -Sputum culture if able -Scheduled and as needed nebulizers -Supplement oxygen as needed Adenocarcinoma of the lung - locally metastatic disease. Has been receiving radiation therapy recently. Most recent chemotherapy was months ago. -Outpatient follow-up Maintenance issues - - DVT prophylaxis - enoxaparin - GI prophylaxis - PPI - Nutrition - regular diet as tolerated Disposition - anticipate discharge to home after the hospital stay. 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 There are no children who live close by to help out unfortunately but his niece has been helping. Antwon Abraham M.D.
[2017-02-26] MEDS: Aspirin 81 MG Tab.Chew PO SCH (09:33)
[2017-02-26] MEDS: cefTRIAXone 2 GM in Sodium Chloride 0.9% 50 ML IV SCH (09:38)
[2017-02-26] MEDS: Codeine/guaiFENesin 100mg-10 MG/5 ML Syrup 10 ML Cup PO PRN ×2 (09:47→21:07)
[2017-02-26] MEDS: Benzonatate 100 MG Cap PO PRN (09:47)
[2017-02-26] MEDS: Azithromycin 500 MG in Sodium Chloride 0.9% 250 ML IV SCH (11:05)
[2017-02-26] MEDS: Enoxaparin 40 MG/0.4 ML Syringe SUBCUT SCH (16:10)
[2017-02-26] MEDS: predniSONE 20 MG Tab PO SCH (16:11)
[2017-02-26] MEDS ORDERED: predniSONE 20 MG Tab PO SCH (16:30)
[2017-02-27] MEDS: Albuterol/Ipratropium 3.0-0.5 MG/3 ML Neb Soln NEB SCH ×4 (07:03→20:40)
[2017-02-27] MEDS: Budesonide 0.5 MG/2 ML Neb Susp NEB SCH ×2 (07:03→20:40)
[2017-02-27] MEDS: Pantoprazole 40 MG Tab.CR PO SCH (07:48)
[2017-02-27] MEDS: predniSONE 20 MG Tab PO SCH ×2 (07:48→16:48)
[2017-02-27] MEDS: Aspirin 81 MG Tab.Chew PO SCH (08:57)
[2017-02-27] MEDS: cefTRIAXone 2 GM in Sodium Chloride 0.9% 50 ML IV SCH (08:59)
[2017-02-27] MEDS: Metoprolol Tartrate 25 MG Tab PO SCH ×2 (10:22→20:40)
[2017-02-27] MEDS ORDERED: Furosemide 20 MG/2 ML VIAL IVPUSH ONE ×2 (10:30→15:13)
[2017-02-27] MEDS: Azithromycin 500 MG in Sodium Chloride 0.9% 250 ML IV SCH (11:03)
[2017-02-27] MEDS: Benzonatate 100 MG Cap PO PRN (14:50)
[2017-02-27] MEDS: Codeine/guaiFENesin 100mg-10 MG/5 ML Syrup 10 ML Cup PO PRN (14:51)
--- NOTE | 2017-02-27 15:50 | PCM.PN ---
- General Info Date of Service: 02/27/17 Functional Status: Reports: Pain Controlled, Tolerating Diet, Ambulating - Review of Systems General: Denies: Fever Pulmonary: Reports: Shortness of Breath Systems Review Comment:: No acute events overnight. Still mild tachycardia but some better. Still feels fairly short of breath, especially with activity. Still has a loose but nonproductive cough. He has not been having any fevers. No complaints of chest pain or abdominal pain. Tolerating diet. Was only on the noninvasive ventilation for a short while. He is off oxygen as of this morning. - Patient Data Vitals - Most Recent: Last Vital Signs Temp 37.3 C 02/27/17 15:00 Pulse 115 H 02/27/17 15:00 Resp 14 02/27/17 15:00 BP 166/89 H 02/27/17 15:00 Pulse Ox 95 02/27/17 15:00 Weight - Most Recent: 62.2 kg I&O - Last 24 Hours: Intake & Output 02/27/17 02/27/17 02/27/17 06:59 14:59 22:59 Intake Total 600 Output Total 550 2300 Balance 50 -2300 Lab Results Last 24 Hours: Laboratory Results - last 24 hr 02/27/17 02/27/17 Range/Units 06:00 06:00 WBC 12.9 H (4.5-11.0) K/uL RBC 4.15 L (4.30-5.90) M/uL Hgb 11.1 L (12.0-15.0) g/dL Hct 35.3 L (40.0-54.0) % MCV 85 (80-98) fL MCH 27 (27-31) pg MCHC 31 L (32-36) % Plt Count 234 (150-400) K/uL Sodium 144 (140-148) mmol/L Potassium 4.0 (3.6-5.2) mmol/L Chloride 109 H (100-108) mmol/L Carbon Dioxide 27 (21-32) mmol/L Anion Gap 12.0 (5.0-14.0) mmol/L BUN 18 (7-18) mg/dL Creatinine 0.9 (0.8-1.3) mg/dL Est Cr Clr Drug Dosing 53.07 mL/min Estimated GFR (MDRD) > 60 (>60) Glucose 126 H (74-106) mg/dL Calcium 8.5 (8.5-10.1) mg/dL Magnesium 1.9 (1.8-2.4) mg/dL Med Orders - Current: Current Medications Acetaminophen (Tylenol) 650 mg PO Q4H PRN PRN Reason: Pain (Mild 1-3)/fever Last Admin: 02/24/17 21:37 Dose: 650 mg Albuterol (Proventil Neb Soln) 2.5 mg NEB Q2H PRN PRN Reason: Shortness Of Breath/wheezing Last Admin: 02/25/17 12:19 Dose: 2.5 mg Albuterol/Ipratropium (Duoneb 3.0-0.5 Mg/3 Ml) 3 ml NEB QIDRT [facility] Last Admin: 02/27/17 14:38 Dose: 3 ml Aspirin (Aspirin) 81 mg PO DAILY [facility] Last Admin: 02/27/17 08:57 Dose: 81 mg Benzonatate (Tessalon Perles) 100 mg PO TID PRN PRN Reason: Cough Last Admin: 02/27/17 14:50 Dose: 100 mg Budesonide (Pulmicort) 0.5 mg NEB BIDRT [facility] Last Admin: 02/27/17 07:03 Dose: 0.5 mg Enoxaparin Sodium (Lovenox) 40 mg SUBCUT DAILY@1600 [facility] Last Admin: 02/26/17 16:10 Dose: 40 mg Guaifenesin/Codeine Phosphate (Robitussin Ac) 10 ml PO Q4H PRN PRN Reason: Cough Last Admin: 02/27/17 14:51 Dose: 10 ml Ceftriaxone Sodium 2 gm/ (Sodium Chloride) 50 mls @ 100 mls/hr IV Q24H [facility] Last Admin: 02/27/17 08:59 Dose: 100 mls/hr Azithromycin 500 mg/ Sodium (Chloride) 250 mls @ 250 mls/hr IV Q24H [facility] Last Admin: 02/27/17 11:03 Dose: 250 mls/hr Lorazepam (Ativan) 0.5 - 1 mg IVPUSH Q4H PRN PRN Reason: Anxiety Last Admin: 02/25/17 12:30 Dose: 1 mg Metoprolol Tartrate (Lopressor) 25 mg PO BID [facility] Last Admin: 02/27/17 10:22 Dose: 25 mg Morphine Sulfate (Morphine) 2 mg IVPUSH Q2H PRN PRN Reason: Pain (severe 7-10) Ondansetron HCl (Zofran Odt) 4 mg PO Q6H PRN PRN Reason: Nausea able to take PO Ondansetron HCl (Zofran) 4 mg IV Q6H PRN PRN Reason: Nausea/Vomiting Pantoprazole Sodium (Protonix) 40 mg PO ACBREAKFAST [facility] Last Admin: 02/27/17 07:48 Dose: 40 mg Polyethylene Glycol (Miralax) 17 gm PO DAILY PRN PRN Reason: Constipation Prednisone (Prednisone) 20 mg PO BIDMEALS [facility] Last Admin: 02/27/17 07:48 Dose: 20 mg Senna/Docusate Sodium (Senna Plus) 1 tab PO BID PRN PRN Reason: Constipation Discontinued Medications Albuterol (Proventil Neb Soln) 2.5 mg NEB Q1H PRN PRN Reason: Shortness of Breath Last Admin: 02/24/17 06:16 Dose: 2.5 mg Albuterol/Ipratropium (Duoneb 3.0-0.5 Mg/3 Ml) 3 ml NEB ONETIME ONE Stop: 02/24/17 05:52 Last Admin: 02/24/17 05:53 Dose: 3 ml Albuterol/Ipratropium (Duoneb 3.0-0.5 Mg/3 Ml) Confirm Administered Dose 3 ml .ROUTE .STK-MED ONE Stop: 02/24/17 05:50 Last Admin: 02/24/17 05:53 Dose: Not Given Diltiazem HCl (Diltiazem) 15 mg IVPUSH ONETIME ONE Stop: 02/24/17 06:48 Last Admin: 02/24/17 06:51 Dose: 15 mg Diltiazem HCl (Diltiazem) Confirm Administered Dose 25 mg .ROUTE .STK-MED ONE Stop: 02/24/17 06:48 Last Admin: 02/24/17 06:51 Dose: Not Given Furosemide (Lasix) 20 mg IVPUSH ONETIME ONE Stop: 02/27/17 10:31 Last Admin: 02/27/17 10:22 Dose: 20 mg Furosemide (Lasix) 20 mg IVPUSH ONETIME ONE Stop: 02/27/17 15:14 Last Admin: 02/27/17 15:19 Dose: 20 mg Magnesium Sulfate 2 gm/ Premix 50 mls @ 12.5 mls/hr IV ONETIME ONE Stop: 02/24/17 10:49 Last Admin: 02/24/17 07:30 Dose: 12.5 mls/hr Sodium Chloride (Normal Saline) 500 mls @ 999 mls/hr IV .BOLUS ONE Stop: 02/24/17 07:23 Last Admin: 02/24/17 06:55 Dose: 999 mls/hr Sodium Chloride (Normal Saline) 1,000 mls @ 999 mls/hr IV ASDIRECTED [facility] Stop: 02/24/17 09:46 Sodium Chloride (Normal Saline) 84 mls @ 4 mls/sec IV ASDIRECTED [facility] Stop: 02/24/17 10:30 Last Admin: 02/24/17 09:29 Dose: 4 mls/sec Sodium Chloride (Normal Saline) 1,000 mls @ 125 mls/hr IV ASDIRECTED [facility] Last Admin: 02/26/17 06:02 Dose: 125 mls/hr Iopamidol (Isovue-370 (76%)) 100 ml IV . DIRECTED [facility] Stop: 02/24/17 10:30 Last Admin: 02/24/17 09:30 Dose: 100 ml Methylprednisolone Sodium Succinate (Solu-Medrol) Confirm Administered Dose 125 mg .ROUTE .STK-MED ONE Stop: 02/24/17 06:03 Last Admin: 02/24/17 06:37 Dose: Not Given Methylprednisolone Sodium Succinate (Solu-Medrol) 125 mg IVPUSH ONETIME ONE Stop: 02/24/17 06:31 Last Admin: 02/24/17 06:10 Dose: 125 mg Methylprednisolone Sodium Succinate (Solu-Medrol) 62.5 mg IVPUSH Q6H [facility] Last Admin: 02/26/17 05:34 Dose: 62.5 mg Sodium Chloride (Saline Flush) 10 ml FLUSH ONETIME ONE Stop: 02/24/17 09:12 Last Admin: 02/24/17 09:29 Dose: 10 ml - Exam Quality Assessment: No: Supplemental Oxygen General: Alert, Oriented, Cooperative, Mild Distress Neck: Supple Lungs: Rales (Rare left lung base), Other (Prolonged expiratory phase). No: Normal Respiratory Effort (Mild increased work of breathing), Wheezing Cardiovascular: Regular Rhythm, Tachycardia GI/Abdominal Exam: Soft, No Distention Extremities: Pedal Edema (Mild bilateral ankle edema). No: Increased Warmth Skin: Warm, Dry Psy/Mental Status: Alert, Normal Affect - Problem List & Annotations (1) Acute respiratory failure with hypoxia and hypercapnia SNOMED Code(s): 07738889, 176780349 Code(s): J96.01 - ACUTE RESPIRATORY FAILURE WITH HYPOXIA; J96.02 - ACUTE RESPIRATORY FAILURE WITH HYPERCAPNIA Status: Acute Current Visit: Yes (2) Acute exacerbation of chronic obstructive airways disease SNOMED Code(s): 175125802 Code(s): J44.1 - CHRONIC OBSTRUCTIVE PULMONARY DISEASE W (ACUTE) EXACERBATION Status: Acute Current Visit: Yes (3) Elevated troponin SNOMED Code(s): 598859942, 435455628 Code(s): R74.8 - ABNORMAL LEVELS OF OTHER SERUM ENZYMES Status: Acute Current Visit: Yes (4) Cancer of lung SNOMED Code(s): 678441582 Code(s): C34.90 - MALIGNANT NEOPLASM OF UNSP PART OF UNSP BRONCHUS OR LUNG Status: Chronic Current Visit: No Qualifiers: Laterality: unspecified laterality Lung location: unspecified part of lung Qualified Code(s): C34.90 - Malignant neoplasm of unspecified part of unspecified bronchus or lung - Problem List Review Problem List Initiated/Reviewed/Updated: Yes - My Orders Last 24 Hours: My Active Orders 02/26/17 17:00 predniSONE 20 mg PO BIDMEALS 02/27/17 10:30 Metoprolol Tartrate [Lopressor] 25 mg PO BID - Plan Plan:: Assessment and plan - Acute exacerbation of COPD with hypoxic and hypercapnic respiratory failure - likely trigger is either bronchitis or recent radiation. He has been slowly improving. Only needed the noninvasive ventilation for a short while last night. He is off oxygen as of this morning but still tachycardic and dyspneic with any activity. 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 Has been receiving radiation therapy recently. Most recent chemotherapy was months ago. -Outpatient follow-up Maintenance issues - - DVT prophylaxis - enoxaparin - GI prophylaxis - PPI - Nutrition - regular diet as tolerated Disposition - anticipate discharge to home after the hospital stay. Hopefully he can head home tomorrow if he is off the noninvasive ventilation overnight and exertional symptoms improve. Antwon Abraham M.D.
[2017-02-27] MEDS: Enoxaparin 40 MG/0.4 ML Syringe SUBCUT SCH (16:48)
[2017-02-28] MEDS: LORazepam 2 MG/ML MDV IVPUSH PRN (01:20)
[2017-02-28] MEDS: Albuterol/Ipratropium 3.0-0.5 MG/3 ML Neb Soln NEB SCH (07:02)
[2017-02-28] MEDS: Budesonide 0.5 MG/2 ML Neb Susp NEB SCH (07:02)
[2017-02-28] MEDS: Pantoprazole 40 MG Tab.CR PO SCH (07:56)
[2017-02-28] MEDS: predniSONE 20 MG Tab PO SCH (07:56)
[2017-02-28] MEDS: Aspirin 81 MG Tab.Chew PO SCH (09:31)
[2017-02-28] MEDS: cefTRIAXone 2 GM in Sodium Chloride 0.9% 50 ML IV SCH (09:33)
[2017-02-28 09:56] VITALS: BP 138/81
[2017-02-28] MEDS ORDERED: Metoprolol Tartrate 50 MG Tab PO SCH (10:00)
--- NOTE | 2017-02-28 10:04 | PCM.DCSUM1 ---
Discharge Summary - Hospital Course Brief History: 86-year-old male with history of tobacco dependence, COPD and lung cancer actively receiving radiation therapy who presented with sudden worsening of shortness of breath and was admitted for management of an acute exacerbation of his COPD. - Discharge Data Discharge Date: 02/28/17 Discharge Disposition: Home, Self-Care 01 Condition: Fair - Discharge Diagnosis/Problem(s) (1) Acute bronchitis SNOMED Code(s): 27703074 ICD Code: J20.9 - ACUTE BRONCHITIS, UNSPECIFIED Status: Acute Qualifiers: Bronchitis organism: unspecified organism Qualified Code(s): J20.9 - Acute bronchitis, unspecified (2) Acute respiratory failure with hypoxia and hypercapnia SNOMED Code(s): 78406255 ICD Code: J96.01 - ACUTE RESPIRATORY FAILURE WITH HYPOXIA; J96.02 - ACUTE RESPIRATORY FAILURE WITH HYPERCAPNIA Status: Acute (3) Acute exacerbation of chronic obstructive airways disease SNOMED Code(s): 681603616 ICD Code: J44.1 - CHRONIC OBSTRUCTIVE PULMONARY DISEASE W (ACUTE) EXACERBATION Status: Acute (4) Elevated troponin SNOMED Code(s): 189191969 ICD Code: R74.8 - ABNORMAL LEVELS OF OTHER SERUM ENZYMES Status: Acute (5) Cancer of lung SNOMED Code(s): 759622037 ICD Code: C34.90 - MALIGNANT NEOPLASM OF UNSP PART OF UNSP BRONCHUS OR LUNG Status: Chronic Qualifiers: Laterality: unspecified laterality Lung location: unspecified part of lung Qualified Code(s): C34.90 - Malignant neoplasm of unspecified part of unspecified bronchus or lung - Patient Summary/Data Labs Pending at D/C: none Hospital Course: Daron presented to the emergency room with rapidly progressive shortness of breath. Workup in the emergency room revealed hypoxic respiratory failure with significant respiratory compromise. Bronchitis but was thought to be the culprit for an acute COPD exacerbation. He was started empirically on antibiotics as well as IV steroids. He did require noninvasive ventilation in the emergency room. He was admitted to the intensive care unit for further management. He required noninvasive ventilation for most of the first 24 hours. At this point his respiratory status started to improve. We were able to have him off of the noninvasive ventilation for periods of time. He did not have significant fevers. Tolerated the antibiotics and steroids fairly well. Over the next 24 hours we had ongoing improvement and less requirement for the noninvasive ventilation. He continued to be afebrile. Lung exam was improving each day. Over the third night he required the noninvasive ventilation for only a short while. Cultures have been negative and he has shown steady clinical improvement. The night before discharge she did not require noninvasive ventilation at all. He is off supplemental oxygen at this time. He feels well enough for discharge to home at this time. Main difficulties at the time of discharge her fatigue and dyspnea on exertion but he has not had hypoxia. He will be on azithromycin and Cefdinir for 4 additional days. he'll be on prednisone daily for 4 more days to complete a taper. I'm planning to continue the metoprolol after hospital discharge. This was initiated to help with this sinus tachycardia and moderately severe hypertension. Both of these have responded well to the beta shy. He will need close outpatient follow-up to ensure that he continues to do well after hospital discharge. - Patient Instructions Diet: Heart Healthy Diet Activity: As Tolerated Driving: May Drive Today Showering/Bathing: May Shower Notify Provider of: Fever, Increased Pain, Nausea and/or Vomiting Other/Special Instructions: 1. You were in the hospital for management of acute bronchitis that An acute exacerbation of your chronic obstructive pulmonary disease. You have been improving with antibiotic and steroid therapy in addition to respiratory treatments including nebulizers. After discharge I recommend the following medications to complete treatment for your bronchitis and COPD exacerbation: --Cefdinir 300 mg taken twice daily. Your first dose of this antibiotic will be due tomorrow morning. --Azithromycin 500 mg taken once daily. Your first dose of this antibiotic will be due tomorrow morning. -- Prednisone 20 mg tablets. The first dose of this anti-inflammatory medication will be due tomorrow morning. 2. Your blood pressure and heart rate were elevated throughout the hospital stay. We have initiated metoprolol to help both lower your blood pressure and reduce your heart rate. We have had good success with these medications. I do recommend that we continue them after hospital discharge. You should take metoprolol 50 mg twice daily. Your next dose is due tonight. 3. Please continue your other home medications as previously prescribed. 4. Please follow-up with Dr. Saldana in 3-5 days. 5. Please seek medical attention if you develop fever greater than 101, have sudden onset or sudden worsening of your shortness of breath, or you develop chest pain or chest tightness. - Discharge Plan Prescriptions/Med Rec: Azithromycin 500 mg PO DAILY #4 tablet Cefdinir 300 mg PO BID #8 capsule Metoprolol Tartrate [Lopressor] 50 mg PO BID #60 tablet predniSONE [Prednisone] 20 mg PO DAILY #4 tablet Home Medications: Home Meds Albuterol Sulfate [Proair Hfa] 2 puff IH QID 05/01/16 [History] Azelastine/Fluticasone [Dymista Nasal [place]] 2 puff NS BID 05/01/16 [History] Budesonide [Pulmicort Flexhaler] 2 puff IH BID 05/01/16 [History] Fluticasone Propionate [Flonase] 2 spray INH BID 05/01/16 [History] Niacinamide [Niacin] 500 mg PO DAILY 05/01/16 [History] Aspirin [Children's Aspirin] 81 mg PO DAILY 09/18/16 [History] Tiotropium [Spiriva HandiHaler] 18 mcg INH DAILY 12/26/16 [History] Albuterol [Proventil Neb Soln] 1 dose INH Q6H PRN 02/24/17 [History] Azithromycin 500 mg PO DAILY #4 tablet 02/28/17 [Rx] Cefdinir 300 mg PO BID #8 capsule 02/28/17 [Rx] Metoprolol Tartrate [Lopressor] 50 mg PO BID #60 tablet 02/28/17 [Rx] predniSONE [Prednisone] 20 mg PO DAILY #4 tablet 02/28/17 [Rx] Patient Handouts: Chronic Obstructive Pulmonary Disease Exacerbation, Cefdinir capsules, Azithromycin tablets, Acute Bronchitis Referrals: Jorge Luis Saldana MD [Primary Care Provider] - (f/u in 3-5 days (Wednesday to Wednesday) - follow-up hospital stay for bronchitis and a COPD exacerbation.) - Discharge Summary/Plan Comment DC Time >30 min.: Yes (40 - complex d/c multiple new meds, extensive counseling ) - Patient Data Vitals - Most Recent: Last Vital Signs Temp 36.1 C 02/28/17 07:00 Pulse 102 H 02/28/17 09:29 Resp 18 02/28/17 09:00 BP 172/89 H 02/28/17 09:29 Pulse Ox 90 L 02/28/17 09:00 Weight - Most Recent: 62.2 kg I&O - Last 24 hours: Intake & Output 02/27/17 02/28/17 02/28/17 22:59 06:59 14:59 Intake Total 660 Output Total 4300 550 Balance -3640 -550 Med Orders - Current: Current Medications Acetaminophen (Tylenol) 650 mg PO Q4H PRN PRN Reason: Pain (Mild 1-3)/fever Last Admin: 02/24/17 21:37 Dose: 650 mg Albuterol (Proventil Neb Soln) 2.5 mg NEB Q2H PRN PRN Reason: Shortness Of Breath/wheezing Last Admin: 02/25/17 12:19 Dose: 2.5 mg Albuterol/Ipratropium (Duoneb 3.0-0.5 Mg/3 Ml) 3 ml NEB QIDRT [facility] Last Admin: 02/28/17 07:02 Dose: 3 ml Aspirin (Aspirin) 81 mg PO DAILY [facility] Last Admin: 02/28/17 09:31 Dose: 81 mg Benzonatate (Tessalon Perles) 100 mg PO TID PRN PRN Reason: Cough Last Admin: 02/27/17 14:50 Dose: 100 mg Budesonide (Pulmicort) 0.5 mg NEB BIDRT [facility] Last Admin: 02/28/17 07:02 Dose: 0.5 mg Enoxaparin Sodium (Lovenox) 40 mg SUBCUT DAILY@1600 [facility] Last Admin: 02/27/17 16:48 Dose: 40 mg Guaifenesin/Codeine Phosphate (Robitussin Ac) 10 ml PO Q4H PRN PRN Reason: Cough Last Admin: 02/27/17 14:51 Dose: 10 ml Ceftriaxone Sodium 2 gm/ (Sodium Chloride) 50 mls @ 100 mls/hr IV Q24H [facility] Last Admin: 02/28/17 09:33 Dose: 100 mls/hr Lorazepam (Ativan) 0.5 - 1 mg IVPUSH Q4H PRN PRN Reason: Anxiety Last Admin: 02/28/17 01:20 Dose: 0.5 mg Metoprolol Tartrate (Lopressor) 50 mg PO BID [facility] Last Admin: 02/28/17 09:29 Dose: 50 mg Morphine Sulfate (Morphine) 2 mg IVPUSH Q2H PRN PRN Reason: Pain (severe 7-10) Ondansetron HCl (Zofran Odt) 4 mg PO Q6H PRN PRN Reason: Nausea able to take PO Ondansetron HCl (Zofran) 4 mg IV Q6H PRN PRN Reason: Nausea/Vomiting Pantoprazole Sodium (Protonix) 40 mg PO ACBREAKFAST [facility] Last Admin: 02/28/17 07:56 Dose: 40 mg Polyethylene Glycol (Miralax) 17 gm PO DAILY PRN PRN Reason: Constipation Prednisone (Prednisone) 20 mg PO BIDMEALS [facility] Last Admin: 02/28/17 07:56 Dose: 20 mg Senna/Docusate Sodium (Senna Plus) 1 tab PO BID PRN PRN Reason: Constipation Discontinued Medications Albuterol (Proventil Neb Soln) 2.5 mg NEB Q1H PRN PRN Reason: Shortness of Breath Last Admin: 02/24/17 06:16 Dose: 2.5 mg Albuterol/Ipratropium (Duoneb 3.0-0.5 Mg/3 Ml) 3 ml NEB ONETIME ONE Stop: 02/24/17 05:52 Last Admin: 02/24/17 05:53 Dose: 3 ml Albuterol/Ipratropium (Duoneb 3.0-0.5 Mg/3 Ml) Confirm Administered Dose 3 ml .ROUTE .STK-MED ONE Stop: 02/24/17 05:50 Last Admin: 02/24/17 05:53 Dose: Not Given Diltiazem HCl (Diltiazem) 15 mg IVPUSH ONETIME ONE Stop: 02/24/17 06:48 Last Admin: 02/24/17 06:51 Dose: 15 mg Diltiazem HCl (Diltiazem) Confirm Administered Dose 25 mg .ROUTE .STK-MED ONE Stop: 02/24/17 06:48 Last Admin: 02/24/17 06:51 Dose: Not Given Furosemide (Lasix) 20 mg IVPUSH ONETIME ONE Stop: 02/27/17 10:31 Last Admin: 02/27/17 10:22 Dose: 20 mg Furosemide (Lasix) 20 mg IVPUSH ONETIME ONE Stop: 02/27/17 15:14 Last Admin: 02/27/17 15:19 Dose: 20 mg Magnesium Sulfate 2 gm/ Premix 50 mls @ 12.5 mls/hr IV ONETIME ONE Stop: 02/24/17 10:49 Last Admin: 02/24/17 07:30 Dose: 12.5 mls/hr Sodium Chloride (Normal Saline) 500 mls @ 999 mls/hr IV .BOLUS ONE Stop: 02/24/17 07:23 Last Admin: 02/24/17 06:55 Dose: 999 mls/hr Sodium Chloride (Normal Saline) 1,000 mls @ 999 mls/hr IV ASDIRECTED [facility] Stop: 02/24/17 09:46 Sodium Chloride (Normal Saline) 84 mls @ 4 mls/sec IV ASDIRECTED [facility] Stop: 02/24/17 10:30 Last Admin: 02/24/17 09:29 Dose: 4 mls/sec Azithromycin 500 mg/ Sodium (Chloride) 250 mls @ 250 mls/hr IV Q24H [facility] Last Admin: 02/27/17 11:03 Dose: 250 mls/hr Sodium Chloride (Normal Saline) 1,000 mls @ 125 mls/hr IV ASDIRECTED [facility] Last Admin: 02/26/17 06:02 Dose: 125 mls/hr Iopamidol (Isovue-370 (76%)) 100 ml IV . DIRECTED [facility] Stop: 02/24/17 10:30 Last Admin: 02/24/17 09:30 Dose: 100 ml Methylprednisolone Sodium Succinate (Solu-Medrol) Confirm Administered Dose 125 mg .ROUTE .STK-MED ONE Stop: 02/24/17 06:03 Last Admin: 02/24/17 06:37 Dose: Not Given Methylprednisolone Sodium Succinate (Solu-Medrol) 125 mg IVPUSH ONETIME ONE Stop: 02/24/17 06:31 Last Admin: 02/24/17 06:10 Dose: 125 mg Methylprednisolone Sodium Succinate (Solu-Medrol) 62.5 mg IVPUSH Q6H [facility] Last Admin: 02/26/17 05:34 Dose: 62.5 mg Metoprolol Tartrate (Lopressor) 25 mg PO BID [facility] Last Admin: 02/27/17 20:40 Dose: 25 mg Sodium Chloride (Saline Flush) 10 ml FLUSH ONETIME ONE Stop: 02/24/17 09:12 Last Admin: 02/24/17 09:29 Dose: 10 ml *Q Meaningful Use (DIS) - VTE *Q VTE Criteria *Q: - Stroke *Q Stroke Criteria *Q: - AMI *Q AMI Criteria *Q:
[2017-02-28] MEDS ORDERED: Azithromycin 250 MG Tab PO ONE (10:30)
== END 2017-02-28 10:57 | disposition home or self-care (01) | DRG 190 ==
LOC: JP.ED 05:36 → JP.ICU 08:33
PROVIDERS: ADMIT Internal Medicine; ATTEND Internal Medicine
DX: J44.0 Chronic obstructive pulmonary disease with (acute) lower respiratory infection (principal); J96.01 Acute respiratory failure with hypoxia; J96.02 Acute respiratory failure with hypercapnia; C34.90 Malignant neoplasm of unspecified part of unspecified bronchus or lung; J20.9 Acute bronchitis, unspecified; J44.1 Chronic obstructive pulmonary disease with (acute) exacerbation; E87.2 Acidosis; Z87.891 Personal history of nicotine dependence; R74.8 Abnormal levels of other serum enzymes; R00.0 Tachycardia, unspecified; R22.1 Localized swelling, mass and lump, neck; R05 Cough; R06.02 Shortness of breath; R06.2 Wheezing; I10 Essential (primary) hypertension; Z92.3 Personal history of irradiation; Z92.21 Personal history of antineoplastic chemotherapy; E78.00 Pure hypercholesterolemia, unspecified; M19.90 Unspecified osteoarthritis, unspecified site; H91.90 Unspecified hearing loss, unspecified ear; H54.7 Unspecified visual loss; R33.9 Retention of urine, unspecified; Z79.82 Long term (current) use of aspirin; Z79.52 Long term (current) use of systemic steroids; Z88.1 Allergy status to other antibiotic agents; Z88.0 Allergy status to penicillin; Z88.7 Allergy status to serum and vaccine; Z88.8 Allergy status to other drugs, medicaments and biological substances
CPT/HCPCS: 36415; 36600; 71010 ×2; 80053; 82803; 83605; 83735; 83880; 84484; 85025; 87040 ×2; 93005; 93010; 94640 ×2; 96365; 96366; 96375; 99285; J2930; J3475; J3490; J7040; J7620; 71275; 71275-26; 80048; 85027; 94660; 99284; A9270-GY; C1751; J0456; J0696; J1650; J1940; J2060; J7030; J7050; J7626; Q9967

== ENCOUNTER 2017-03-06 15:03 | Inpatient (IN) | payer MEDICARE, OTHER ==
[2017-03-06] MEDS ORDERED: Albuterol/Ipratropium 3.0-0.5 MG/3 ML Neb Soln NEB ONE (16:38)
--- NOTE | 2017-03-06 16:42 | EDM.PDOC ---
ED HPI GENERAL MEDICAL PROBLEM - General Chief Complaint: Respiratory Problem Stated Complaint: BRONCHITITIS,PHLEGM GETTING WORSE Time Seen by Provider: 03/06/17 16:39 Source of Information: Reports: Patient, Family, RN Notes Reviewed History Limitations: Reports: No Limitations - History of Present Illness INITIAL COMMENTS - FREE TEXT/NARRATIVE: 86-year-old gentleman presents to emergency department day with increasing shortness of breath, he has a known history of chronic obstructive pulmonary disease was recently discharged from the hospital one week prior for an exacerbation, he states he's completed the course of antibiotics and steroids however over the last 24 hours become more short of breath with phlegm production his biggest issue is that he feels if he did get some of the phlegm out it would help on arrival he was hypoxic in the mid 80s he normally does not wear oxygen at home. - Related Data Allergies Allergy/AdvReac Type Severity Reaction Status Date / Time amoxicillin Allergy Rash Verified 02/24/17 05:47 influenza virus vaccine, Allergy Other Verified 02/24/17 05:47 specific Penicillins Allergy Rash Verified 02/24/17 05:47 colesevelam AdvReac Stomach Verified 02/24/17 05:47 Upset piroxicam [From Feldene] AdvReac Nausea and Verified 02/24/17 05:47 Vomiting Qfsqzzd-Myk-Zzj Reductase AdvReac Muscle Verified 02/24/17 05:47 Inhibitor Aches Home Meds: Home Meds Albuterol Sulfate [Proair Hfa] 2 puff IH QID 05/01/16 [History] Azelastine/Fluticasone [Dymista Nasal [place]] 2 puff NS BID 05/01/16 [History] Fluticasone Propionate [Flonase] 2 spray INH BID 05/01/16 [History] Aspirin [Children's Aspirin] 81 mg PO WEEKLY 09/18/16 [History] Tiotropium [Spiriva HandiHaler] 18 mcg INH DAILY 12/26/16 [History] Albuterol [Proventil Neb Soln] 1 dose INH Q6H PRN 02/24/17 [History] Albuterol Sulfate [Proair Hfa] 1 puff INH QID 03/06/17 [History] Mometasone/Formoterol [Dulera 200-5 MCG] 1 inh INH DAILY 03/06/17 [History] Niacin [Niacin ER] 500 mg PO DAILY 03/06/17 [History] predniSONE [predniSONE] 40 mg PO DAILY 03/06/17 [History] Past Medical History HEENT History: Reports: Allergic Rhinitis, Cataract, Hard of Hearing, Impaired Vision Cardiovascular History: Reports: High Cholesterol Respiratory History: Reports: Asthma, COPD, Other (See Below) Other Respiratory History: lung cancer Gastrointestinal History: Reports: Hemorrhoids Genitourinary History: Reports: Retention, Urinary Other Genitourinary History: came with a starkey catheter and leg bag Musculoskeletal History: Reports: Arthritis Oncologic (Cancer) History: Reports: Lung, Other (See Below) Other Oncologic History: port a cath placed on right side flushed last 1-2 wekks ago Dermatologic History: Reports: Eczema - Infectious Disease History Infectious Disease History: Reports: Chicken Pox, Measles, Mumps - Past Surgical History Respiratory Surgical History: Reports: Lung Biopsies GI Surgical History: Reports: Colonoscopy, Other (See Below) Other GI Surgeries/Procedures: hemorrhoidectomy Social & Family History - Family History Family Medical History: Noncontributory - Tobacco Use Smoking Status *Q: Former Smoker Years of Tobacco use: 65 Packs/Tins Daily: 0.5 Used Tobacco, but Quit: Yes Month Tobacco Last Used: may Second Hand Smoke Exposure: No - Caffeine Use Caffeine Use: Reports: Coffee - Alcohol Use Days Per Week of Alcohol Use: 7 Number of Drinks Per Day: 1 Total Drinks Per Week: 7 - Recreational Drug Use Recreational Drug Use: No ED ROS GENERAL - Review of Systems Review Of Systems: See Below Constitutional: Denies: Fever, Chills HEENT: Reports: No Symptoms Respiratory: Reports: Shortness of Breath, Wheezing, Cough, Sputum Cardiovascular: Reports: No Symptoms GI/Abdominal: Reports: No Symptoms Musculoskeletal: Reports: No Symptoms Skin: Reports: No Symptoms Neurological: Reports: No Symptoms ED EXAM, GENERAL - Physical Exam Exam: See Below Exam Limited By: No Limitations General Appearance: Alert, WD/WN, No Apparent Distress Head: Atraumatic, Normocephalic Neck: Normal Inspection, Supple, Non-Tender, Full Range of Motion Respiratory/Chest: Decreased Breath Sounds, Wheezing, Other (Distant breath sounds) Cardiovascular: Regular Rate, Rhythm, No Murmur GI/Abdominal: Soft, Non-Tender Extremities: Normal Range of Motion, Pedal Edema Neurological: Alert, Normal Cognition Course - Vital Signs Last Recorded V/S: Last Vital Signs Temp 99.0 F 03/06/17 15:39 Pulse 114 H 03/06/17 18:15 Resp 16 03/06/17 18:15 BP 160/93 H 03/06/17 18:15 Pulse Ox 92 L 03/06/17 18:15 - Orders/Labs/Meds Orders: Active Orders 24 hr Category Date Time Status RT Aerosol Therapy [RC] ASDIRECTED Care 03/06/17 16:39 Active Vital Signs [RC] Q1H Care 03/06/17 16:37 Active Chest 2V [CR] Urgent Exams 03/06/17 16:38 Taken CULTURE BLOOD [BC] Urgent Lab 03/06/17 16:40 Received CULTURE BLOOD [BC] Urgent Lab 03/06/17 16:50 Received CULTURE RESPIRATORY + SMEAR [RM] Stat Lab 03/06/17 17:12 Results Lactated Ringers [Ringers, Lactated] 1,000 ml Med 03/06/17 16:45 Active IV ASDIRECTED Blood Culture x2 Reflex Set [OM.PC] Urgent Oth 03/06/17 16:37 Ordered Medication Orders Lactated Ringer's (Ringers, Lactated) 1,000 mls @ 125 mls/hr IV ASDIRECTED DEVIN Last Admin: 03/06/17 17:36 Dose: 125 mls/hr Labs: Laboratory Tests 03/06/17 03/06/17 03/06/17 Range/Units 16:40 16:40 16:40 WBC 12.3 H (4.5-11.0) K/uL RBC 5.04 (4.30-5.90) M/uL Hgb 13.6 D (12.0-15.0) g/dL Hct 42.1 (40.0-54.0) % MCV 84 (80-98) fL MCH 27 (27-31) pg MCHC 32 (32-36) % Plt Count 289 (150-400) K/uL Neut % (Auto) 95 H (36-66) % Lymph % (Auto) 2 L (24-44) % [place] % (Auto) 4 (2-6) % Eos % (Auto) 0 L (2-4) % Baso % (Auto) 0 (0-1) % Puncture Site ABG pH (7.350-7.450) ABG pCO2 (35.0-42.0) mmHg ABG pO2 (75.0-100.0) mmHg ABG HCO3 (22.0-26.0) mmol/L ABG Total CO2 (23.0-27.0) mmol/L ABG O2 Saturation (95.0-98.0) % ABG O2 Content (15.0-23.0) %vol ABG Base Excess mm/L ABG Hemoglobin (13.5-18.0) g/dL ABG Oxyhemoglobin % ABG Carboxyhemoglobin (0.0-1.6) % ABG Methemoglobin % Ever Test O2 Delivery Device Oxygen Flow Rate L Sodium 141 (140-148) mmol/L Potassium 3.4 L (3.6-5.2) mmol/L Chloride 101 (100-108) mmol/L Carbon Dioxide 31 (21-32) mmol/L Anion Gap 12.4 (5.0-14.0) mmol/L BUN 26 H (7-18) mg/dL Creatinine 1.3 (0.8-1.3) mg/dL Est Cr Clr Drug Dosing 35.96 mL/min Estimated GFR (MDRD) 53 L (>60) Glucose 154 H (74-106) mg/dL Lactic Acid 1.4 (0.4-2.0) mmol/L Calcium 8.9 (8.5-10.1) mg/dL Total Bilirubin 0.5 D (0.2-1.0) mg/dL AST 15 (15-37) U/L ALT 41 D (12-78) U/L Alkaline Phosphatase 78 (46-116) U/L C-Reactive Protein 0.35 H (0.0-0.3) mg/dL Total Protein 6.5 (6.4-8.2) g/dL Albumin 3.4 (3.4-5.0) g/dL Globulin 3.1 (2.3-3.5) g/dL Albumin/Globulin Ratio 1.1 L (1.2-2.2) 03/06/17 Range/Units 16:48 WBC (4.5-11.0) K/uL RBC (4.30-5.90) M/uL Hgb (12.0-15.0) g/dL Hct (40.0-54.0) % MCV (80-98) fL MCH (27-31) pg MCHC (32-36) % Plt Count (150-400) K/uL Neut % (Auto) (36-66) % Lymph % (Auto) (24-44) % [place] % (Auto) (2-6) % Eos % (Auto) (2-4) % Baso % (Auto) (0-1) % Puncture Site Rt radial ABG pH 7.473 H (7.350-7.450) ABG pCO2 38.2 (35.0-42.0) mmHg ABG pO2 76.0 (75.0-100.0) mmHg ABG HCO3 27.6 H (22.0-26.0) mmol/L ABG Total CO2 24.2 (23.0-27.0) mmol/L ABG O2 Saturation 95.5 (95.0-98.0) % ABG O2 Content 17.7 (15.0-23.0) %vol ABG Base Excess 4.3 mm/L ABG Hemoglobin 13.4 L (13.5-18.0) g/dL ABG Oxyhemoglobin 93.8 % ABG Carboxyhemoglobin 1.2 (0.0-1.6) % ABG Methemoglobin 0.6 % Ever Test Pass O2 Delivery Device Nasal cannula Oxygen Flow Rate 2 L Sodium (140-148) mmol/L Potassium (3.6-5.2) mmol/L Chloride (100-108) mmol/L Carbon Dioxide (21-32) mmol/L Anion Gap (5.0-14.0) mmol/L BUN (7-18) mg/dL Creatinine (0.8-1.3) mg/dL Est Cr Clr Drug Dosing mL/min Estimated GFR (MDRD) (>60) Glucose (74-106) mg/dL Lactic Acid (0.4-2.0) mmol/L Calcium (8.5-10.1) mg/dL Total Bilirubin (0.2-1.0) mg/dL AST (15-37) U/L ALT (12-78) U/L Alkaline Phosphatase (46-116) U/L C-Reactive Protein (0.0-0.3) mg/dL Total Protein (6.4-8.2) g/dL Albumin (3.4-5.0) g/dL Globulin (2.3-3.5) g/dL Albumin/Globulin Ratio (1.2-2.2) Meds: Medications Generic Name Dose Route Start Last Admin Trade Name Freq PRN Reason Stop Dose Admin Lactated Ringer's 1,000 mls @ 125 mls/hr 03/06/17 16:45 03/06/17 17:36 Ringers, Lactated IV 125 mls/hr ASDIRECTED DEVIN Administration Discontinued Medications Generic Name Dose Route Start Last Admin Trade Name Freq PRN Reason Stop Dose Admin Albuterol/Ipratropium 3 ml 03/06/17 16:38 03/06/17 17:06 Duoneb 3.0-0.5 Mg/3 Ml NEB 03/06/17 16:39 3 ml ONETIME ONE Administration Departure - Departure Time of Disposition: 19:53 Disposition: Admitted As Inpatient 68 Condition: Fair Clinical Impression: COPD with exacerbation - Discharge Information Referrals: Jorge Luis Saldana MD [Primary Care Provider] - Forms: ED Department Discharge - My Orders Last 24 Hours: My Active Orders 03/06/17 16:37 Vital Signs [RC] Q1H Blood Culture x2 Reflex Set [OM.PC] Urgent 03/06/17 16:38 Chest 2V [CR] Urgent 03/06/17 16:39 RT Aerosol Therapy [RC] ASDIRECTED 03/06/17 16:40 CULTURE BLOOD [BC] Urgent 03/06/17 16:45 Lactated Ringers [Ringers, Lactated] 1,000 ml IV ASDIRECTED 03/06/17 16:50 CULTURE BLOOD [BC] Urgent 03/06/17 17:12 CULTURE RESPIRATORY + SMEAR [RM] Stat - Assessment/Plan Last 24 Hours: My Active Orders 03/06/17 16:37 Vital Signs [RC] Q1H Blood Culture x2 Reflex Set [OM.PC] Urgent 03/06/17 16:38 Chest 2V [CR] Urgent 03/06/17 16:39 RT Aerosol Therapy [RC] ASDIRECTED 03/06/17 16:40 CULTURE BLOOD [BC] Urgent 03/06/17 16:45 Lactated Ringers [Ringers, Lactated] 1,000 ml IV ASDIRECTED 03/06/17 16:50 CULTURE BLOOD [BC] Urgent 03/06/17 17:12 CULTURE RESPIRATORY + SMEAR [RM] Stat Plan: Assessment Acuity = acute Site and laterality = COPD exacerbation complicated patient with known history of chronic obstructive pulmonary disease Etiology = unclear etiology Manifestations = hypoxia Location of injury = Home Lab values = WBC elevated at 12.3 consistent leukocytosis, ABG pH 7.47 PCO2 38.2 and bicarbonate of 27.6 and a PO2 of 76 potassium low at 3.4 consistent with hypokalemia lactic acid normal at 1.4 chest x-ray shows no acute process I did review films myself I cannot appreciate any acute process, the official read from radiology is pending Plan Discussed case with hospitalist inventory control coordinator he agreed to come and evaluate the patient in the emergency department for admission . This note was dictated using [employer] voice recognition software please call with any questions.
[2017-03-06] MEDS ORDERED: Lactated Ringers 1,000 ML IV SCH (16:45)
--- NOTE | 2017-03-06 20:28 | PCM.HP ---
H&P History of Present Illness - General Date of Service: 03/06/17 Admit Problem/Dx: Admission Diagnosis/Problem Admission Diagnosis/Problem Hypoxia Source of Information: Patient, Old Records, Provider, RN Notes Reviewed History Limitations: Reports: No Limitations - History of Present Illness Initial Comments - Free Text/Narative: This patient is an 86-year-old gentleman who is admitted through the emergency department for further evaluation and management of hypoxia. He has a known history of COPD with a [id number] smoking history. Last May was diagnosed with lung cancer and has received radiation therapy. Follow-up CT scan done in November showed a mass at the right neck that has recently been treated with radiation. He was hospitalized at this facility last week with hypoxic respiratory failure requiring use of noninvasive positive pressure ventilation. There was no evidence of pneumonia but he was felt to have a component of bronchitis was treated with antibiotics, nebulizer therapy, and IV Solu-Medrol. He improved significantly over the course of his hospital stay. Since discharge he has continued to experience some shortness of breath and his shortness of breath is become more severe over the past 48 hours. He has had a cough productive only of light colored sputum and denies any symptoms of chest pain or pressure. There've been no fevers chills or sweats. He presented to emergency department today because of his increased shortness of breath and was found to be hypoxic on room air with an oxygen saturation of 84%. Saturation has improved with use of supplemental oxygen. White blood cell count is modestly elevated but he has been on prednisone up until the time of admission. He has been afebrile and chest x-ray shows no obvious infiltrates. - Related Data Allergies/Adverse Reactions: Allergies Allergy/AdvReac Type Severity Reaction Status Date / Time amoxicillin Allergy Rash Verified 02/24/17 05:47 influenza virus vaccine, Allergy Other Verified 02/24/17 05:47 specific Penicillins Allergy Rash Verified 02/24/17 05:47 colesevelam AdvReac Stomach Verified 02/24/17 05:47 Upset piroxicam [From Feldene] AdvReac Nausea and Verified 02/24/17 05:47 Vomiting Jcjcdgq-Lye-Wxa Reductase AdvReac Muscle Verified 02/24/17 05:47 Inhibitor Aches Home Medications: Home Meds Albuterol Sulfate [Proair Hfa] 2 puff IH QID 05/01/16 [History] Azelastine/Fluticasone [Dymista Nasal [place]] 2 puff NS BID 05/01/16 [History] Fluticasone Propionate [Flonase] 2 spray INH BID 05/01/16 [History] Aspirin [Children's Aspirin] 81 mg PO WEEKLY 09/18/16 [History] Tiotropium [Spiriva HandiHaler] 18 mcg INH DAILY 12/26/16 [History] Albuterol [Proventil Neb Soln] 1 dose INH Q6H PRN 02/24/17 [History] Albuterol Sulfate [Proair Hfa] 1 puff INH QID 03/06/17 [History] Mometasone/Formoterol [Dulera 200-5 MCG] 1 inh INH DAILY 03/06/17 [History] Niacin [Niacin ER] 500 mg PO DAILY 03/06/17 [History] predniSONE [predniSONE] 40 mg PO DAILY 03/06/17 [History] Past Medical History HEENT History: Reports: Allergic Rhinitis, Cataract, Hard of Hearing, Impaired Vision Cardiovascular History: Reports: High Cholesterol Respiratory History: Reports: Asthma, COPD, Other (See Below) Other Respiratory History: lung cancer Gastrointestinal History: Reports: Hemorrhoids Genitourinary History: Reports: Retention, Urinary Other Genitourinary History: came with a starkey catheter and leg bag Musculoskeletal History: Reports: Arthritis Oncologic (Cancer) History: Reports: Lung, Other (See Below) Other Oncologic History: port a cath placed on right side flushed last 1-2 wekks ago Dermatologic History: Reports: Eczema - Infectious Disease History Infectious Disease History: Reports: Chicken Pox, Measles, Mumps - Past Surgical History Respiratory Surgical History: Reports: Lung Biopsies GI Surgical History: Reports: Colonoscopy, Other (See Below) Other GI Surgeries/Procedures: hemorrhoidectomy Social & Family History - Family History Family Medical History: Noncontributory - Tobacco Use Smoking Status *Q: Former Smoker Years of Tobacco use: 65 Packs/Tins Daily: 0.5 Used Tobacco, but Quit: Yes Month Tobacco Last Used: may Second Hand Smoke Exposure: No - Caffeine Use Caffeine Use: Reports: Coffee - Alcohol Use Days Per Week of Alcohol Use: 7 Number of Drinks Per Day: 1 Total Drinks Per Week: 7 - Recreational Drug Use Recreational Drug Use: No H&P Review of Systems - Review of Systems: Review Of Systems: See Below General: Reports: Weakness. Denies: Fever, Chills, Diaphoresis HEENT: Reports: No Symptoms Pulmonary: Reports: Shortness of Breath, Wheezing, Cough, Sputum. Denies: Pleuritic Chest Pain, Hemoptysis Cardiovascular: Reports: Dyspnea on Exertion, Edema. Denies: Chest Pain, Palpitations, Orthopnea, PND, Lightheadedness Gastrointestinal: Reports: No Symptoms Genitourinary: Reports: No Symptoms Musculoskeletal: Reports: No Symptoms Skin: Reports: No Symptoms Psychiatric: Reports: No Symptoms Neurological: Reports: No Symptoms Hematologic/Lymphatic: Reports: No Symptoms Immunologic: Reports: No Symptoms Exam - Exam Exam: See Below - Vital Signs Vital Signs: Last Vital Signs Temp 99.0 F 03/06/17 15:39 Pulse 114 H 03/06/17 18:15 Resp 16 03/06/17 18:15 BP 160/93 H 03/06/17 18:15 Pulse Ox 92 L 03/06/17 18:15 Weight: 132 lb 7.965 oz - Exam Quality Assessment: Supplemental Oxygen, DVT Prophylaxis General: Alert, Oriented, Cooperative, Mild Distress HEENT: Conjunctiva Clear, Hearing Intact, Mucosa Moist & [place], Normal Nasal Septum, Posterior Pharynx Clear, Pupils Equal Neck: Supple, Trachea Midline, +2 Carotid Pulse wo Bruit Lungs: Decreased Breath Sounds, Rhonchi, Wheezing. No: Crackles, Rales Cardiovascular: Regular Rate, Regular Rhythm, Normal S1, Normal S2. No: Systolic Murmur, Diastolic Murmur GI/Abdominal Exam: Normal Bowel Sounds, Soft, Non-Tender, No Distention Back Exam: Normal Inspection, Full Range of Motion, NT Extremities: Normal Inspection, Normal Range of Motion, Non-Tender, Pedal Edema Skin: Warm, Dry, Intact Neurological: Cranial Nerves Intact, Strength Equal Bilateral, Normal Speech, Normal Tone, Sensation Intact. No: Focal Deficit Neuro Extensive - Mental Status: Alert, Oriented x3, Normal Mood/Affect, Normal Cognition, Memory Intact - Patient Data Lab Results Last 24 hrs: Laboratory Results - last 24 hr 03/06/17 03/06/17 03/06/17 Range/Units 16:40 16:40 16:40 WBC 12.3 H (4.5-11.0) K/uL RBC 5.04 (4.30-5.90) M/uL Hgb 13.6 D (12.0-15.0) g/dL Hct 42.1 (40.0-54.0) % MCV 84 (80-98) fL MCH 27 (27-31) pg MCHC 32 (32-36) % Plt Count 289 (150-400) K/uL Neut % (Auto) 95 H (36-66) % Lymph % (Auto) 2 L (24-44) % [place] % (Auto) 4 (2-6) % Eos % (Auto) 0 L (2-4) % Baso % (Auto) 0 (0-1) % Puncture Site ABG pH (7.350-7.450) ABG pCO2 (35.0-42.0) mmHg ABG pO2 (75.0-100.0) mmHg ABG HCO3 (22.0-26.0) mmol/L ABG Total CO2 (23.0-27.0) mmol/L ABG O2 Saturation (95.0-98.0) % ABG O2 Content (15.0-23.0) %vol ABG Base Excess mm/L ABG Hemoglobin (13.5-18.0) g/dL ABG Oxyhemoglobin % ABG Carboxyhemoglobin (0.0-1.6) % ABG Methemoglobin % Ever Test O2 Delivery Device Oxygen Flow Rate L Sodium 141 (140-148) mmol/L Potassium 3.4 L (3.6-5.2) mmol/L Chloride 101 (100-108) mmol/L Carbon Dioxide 31 (21-32) mmol/L Anion Gap 12.4 (5.0-14.0) mmol/L BUN 26 H (7-18) mg/dL Creatinine 1.3 (0.8-1.3) mg/dL Est Cr Clr Drug Dosing 35.96 mL/min Estimated GFR (MDRD) 53 L (>60) Glucose 154 H (74-106) mg/dL Lactic Acid 1.4 (0.4-2.0) mmol/L Calcium 8.9 (8.5-10.1) mg/dL Total Bilirubin 0.5 D (0.2-1.0) mg/dL AST 15 (15-37) U/L ALT 41 D (12-78) U/L Alkaline Phosphatase 78 (46-116) U/L C-Reactive Protein 0.35 H (0.0-0.3) mg/dL Total Protein 6.5 (6.4-8.2) g/dL Albumin 3.4 (3.4-5.0) g/dL Globulin 3.1 (2.3-3.5) g/dL Albumin/Globulin Ratio 1.1 L (1.2-2.2) 03/06/17 Range/Units 16:48 WBC (4.5-11.0) K/uL RBC (4.30-5.90) M/uL Hgb (12.0-15.0) g/dL Hct (40.0-54.0) % MCV (80-98) fL MCH (27-31) pg MCHC (32-36) % Plt Count (150-400) K/uL Neut % (Auto) (36-66) % Lymph % (Auto) (24-44) % [place] % (Auto) (2-6) % Eos % (Auto) (2-4) % Baso % (Auto) (0-1) % Puncture Site Rt radial ABG pH 7.473 H (7.350-7.450) ABG pCO2 38.2 (35.0-42.0) mmHg ABG pO2 76.0 (75.0-100.0) mmHg ABG HCO3 27.6 H (22.0-26.0) mmol/L ABG Total CO2 24.2 (23.0-27.0) mmol/L ABG O2 Saturation 95.5 (95.0-98.0) % ABG O2 Content 17.7 (15.0-23.0) %vol ABG Base Excess 4.3 mm/L ABG Hemoglobin 13.4 L (13.5-18.0) g/dL ABG Oxyhemoglobin 93.8 % ABG Carboxyhemoglobin 1.2 (0.0-1.6) % ABG Methemoglobin 0.6 % Ever Test Pass O2 Delivery Device Nasal cannula Oxygen Flow Rate 2 L Sodium (140-148) mmol/L Potassium (3.6-5.2) mmol/L Chloride (100-108) mmol/L Carbon Dioxide (21-32) mmol/L Anion Gap (5.0-14.0) mmol/L BUN (7-18) mg/dL Creatinine (0.8-1.3) mg/dL Est Cr Clr Drug Dosing mL/min Estimated GFR (MDRD) (>60) Glucose (74-106) mg/dL Lactic Acid (0.4-2.0) mmol/L Calcium (8.5-10.1) mg/dL Total Bilirubin (0.2-1.0) mg/dL AST (15-37) U/L ALT (12-78) U/L Alkaline Phosphatase (46-116) U/L C-Reactive Protein (0.0-0.3) mg/dL Total Protein (6.4-8.2) g/dL Albumin (3.4-5.0) g/dL Globulin (2.3-3.5) g/dL Albumin/Globulin Ratio (1.2-2.2) Result Diagrams: 03/06/17 16:40 03/06/17 16:40 Sean Results Last 24 hrs: Microbiology 03/06/17 17:12 Gram Stain - Final Sputum - Expectorated *Q Meaningful Use (ADM) - VTE *Q VTE Criteria *Q: - VTE Risk Assess *Q Each Risk Factor Represents 1 Point: Abnormal Pulmonary Function (COPD) Total Score 1 Point Risk Factors: 1 Each Risk Factor Represents 2 Points: None Total Score 2 Point Risk Factors: 0 Each Risk Factor Represents 3 Points: Age 75 Years or Greater, Present Cancer or Chemotherapy Total Score 3 Point Risk Factors: 6 Each Risk Factor Represents 5 Points: None Total Score 5 Point Risk Factors: 0 Venous Thromboembolism Risk Factor Score *Q: 7 - Stroke *Q Stroke Criteria *Q: - AMI *Q AMI Criteria *Q: Problem List Initiated/Reviewed/Updated: Yes Orders Last 24hrs: Active Orders 24 hr Category Date Time Status Patient Status Manage Transfer [TRANSFER] Routine ADT 03/06/17 20:11 Ordered RT Aerosol Therapy [RC] ASDIRECTED Care 03/06/17 16:39 Active Vital Signs [RC] Q1H Care 03/06/17 16:37 Active Chest 2V [CR] Urgent Exams 03/06/17 16:38 Taken CULTURE BLOOD [BC] Urgent Lab 03/06/17 16:40 Received CULTURE BLOOD [BC] Urgent Lab 03/06/17 16:50 Received CULTURE RESPIRATORY + SMEAR [RM] Stat Lab 03/06/17 17:12 Results Lactated Ringers [Ringers, Lactated] 1,000 ml Med 03/06/17 16:45 Active IV ASDIRECTED Blood Culture x2 Reflex Set [OM.PC] Urgent Oth 03/06/17 16:37 Ordered Resuscitation Status Routine Resus Stat 03/06/17 20:14 Ordered Medication Orders Lactated Ringer's (Ringers, Lactated) 1,000 mls @ 125 mls/hr IV ASDIRECTED DEVIN Last Admin: 03/06/17 17:36 Dose: 125 mls/hr Assessment/Plan Comment:: ASSESSMENT AND PLAN HYPOXIC RESPIRATORY COMPROMISE-known history of COPD and lung cancer, status post chemotherapy, and radiation therapy to his right neck. Hospitalized last week with COPD exacerbation secondary to bronchitis with associated hypoxic respiratory failure requiring use of noninvasive positive pressure ventilation. Improved on admission but now over the past 40 hours his developed increased shortness of breath. No evidence of active infection at the present time, current compromise likely secondary to COPD. Will evaluate for pulmonary emboli and underlying cardiac disease. -Hold on antibiotic therapy, he has recently completed a course of antibiotics -Supplemental oxygen as needed -Nebulizer therapy with albuterol and duo nebs -Solu-Medrol 40 mg IV every 6 hours -CT angiogram of the chest to evaluate for pulmonary emboli -Echocardiogram to assess left ventricular function and valvular status. COPD -Management as above METASTATIC LUNG CANCER-status post chemotherapy and recent radiation to the right neck. He is recently seen the oncologist and has been told that they're presently is no evidence of active disease. MAINTENANCE ISSUES -DVT prophylaxis; Lovenox 40 mg subcutaneous daily -GI prophylaxis not indicated -Starkey catheter; not indicated -Nutrition; regular diet -Nicotine dependence; not required CODE STATUS-FULL CODE ADMISSION STATUS-patient will be admitted to inpatient status, expect at least a 2 night hospital stay for evaluation and management of problems as outlined above. At the time of this admission I do not reasonably expected evaluation and management of this problem will require more than a 96 hour hospital stay. DISPOSITION-anticipate discharge to home after the hospital stay. PRIMARY CARE PROVIDER-Abdullahi Bolanos
[2017-03-06] MEDS ORDERED: Enoxaparin 40 MG/0.4 ML Syringe SUBCUT SCH (20:56)
[2017-03-06] MEDS ORDERED: Ondansetron 4 MG/2 ML SDV IV PRN (20:56)
[2017-03-06] MEDS ORDERED: Potassium Chloride 20 MEQ Tab.ER PO ONE (20:56)
[2017-03-06] MEDS ORDERED: Polyethylene Glycol 3350 Powder 17 GM Packet PO PRN (20:56)
[2017-03-06] MEDS ORDERED: Acetaminophen 325 MG Tab PO PRN (20:56)
[2017-03-06] MEDS ORDERED: Docusate Sodium 100 MG Cap PO PRN (20:56)
[2017-03-06] MEDS ORDERED: Albuterol 0.083% 2.5 MG/3 ML Neb Soln NEB PRN (20:56)
[2017-03-06] MEDS ORDERED: oxyCODONE 5 MG Tab PO PRN (20:56)
[2017-03-06] MEDS ORDERED: Magnesium Hydroxide 400 MG/5 ML Susp 30 ML Cup PO PRN (20:56)
[2017-03-06] MEDS ORDERED: Sodium Chloride 0.9% 10 ML Syringe FLUSH ONE (21:11)
[2017-03-06] MEDS ORDERED: Iopamidol 755 Mg/ML 100 ML Bottle IV SCH (21:15)
[2017-03-06] MEDS ORDERED: Sodium Chloride 0.9% 90 ML IV SCH (21:15)
[2017-03-06] MEDS: methylPREDNISolone Sodium Succinate 40 MG/1 ML SDV IVPUSH SCH (22:17)
[2017-03-06] MEDS: Albuterol/Ipratropium 3.0-0.5 MG/3 ML Neb Soln NEB SCH (22:19)
[2017-03-06] MEDS: Albuterol 8 GM Inhaler INH SCH (22:25)
[2017-03-06] MEDS: Sodium Chloride 0.9% 10 ML Syringe FLUSH PRN (22:33)
[2017-03-06] MEDS: Fluticasone Propionate Nasal Spray 16 GM Bottle NAS SCH (22:35)
[2017-03-06] MEDS: AZELASTINE NS SCH (22:35)
[2017-03-06] MEDS: FLUTICASONE NS SCH (22:35)
[2017-03-07] MEDS: Diltiazem IR 30 MG Tab PO SCH ×3 (00:09→10:51)
[2017-03-07] MEDS: methylPREDNISolone Sodium Succinate 40 MG/1 ML SDV IVPUSH SCH ×4 (04:11→21:49)
[2017-03-07] MEDS: Albuterol 8 GM Inhaler INH SCH (06:05)
[2017-03-07] MEDS: Albuterol/Ipratropium 3.0-0.5 MG/3 ML Neb Soln NEB SCH ×4 (06:05→20:00)
[2017-03-07] MEDS: Tiotropium Inhaler 18 MCG Inhalation Powder Cap Kit of 5 INH SCH (08:50)
[2017-03-07] MEDS: Formoterol/Mometasone 200-5 MCG 8.8 GM Inhaler IH SCH (08:50)
[2017-03-07] MEDS ORDERED: Formoterol/Mometasone 200-5 MCG 8.8 GM Inhaler IH SCH (09:00)
[2017-03-07] MEDS ORDERED: Magnesium Sulfate/Water 2 GM in Premix Bag 1 BAG IV ONE (09:00)
[2017-03-07] MEDS ORDERED: Tiotropium Inhaler 18 MCG Inhalation Powder Cap Kit of 5 INH SCH (09:00)
[2017-03-07] MEDS: Niacin 500 MG Cap.ER PO SCH (09:36)
[2017-03-07] MEDS: AZELASTINE NS SCH (09:38)
[2017-03-07] MEDS: FLUTICASONE NS SCH (09:38)
[2017-03-07] MEDS: Fluticasone Propionate Nasal Spray 16 GM Bottle NAS SCH ×2 (09:38→20:00)
--- NOTE | 2017-03-07 11:55 | PCM.PN ---
- General Info Date of Service: 03/07/17 Functional Status: Reports: Pain Controlled, Tolerating Diet, Urinating - Review of Systems General: Reports: Weakness. Denies: Fever, Chills Pulmonary: Reports: Shortness of Breath, Cough, Wheezing. Denies: Pleuritic Chest Pain, Sputum, Hemoptysis Cardiovascular: Reports: Dyspnea on Exertion. Denies: Chest Pain, Palpitations , Orthopnea, PND, Edema Gastrointestinal: Reports: No Symptoms Systems Review Comment:: This patient has experienced modest improvement in shortness of breath since admission, cough for the most part remains nonproductive. Vital signs have been stable and he has remained afebrile. CT angiogram of the chest showed no evidence of infiltrate, pulmonary edema, or pulmonary emboli. - Patient Data Vitals - Most Recent: Last Vital Signs Temp 97.7 F 03/07/17 11:09 Pulse 102 H 03/07/17 11:09 Resp 18 03/07/17 11:09 BP 145/54 H 03/07/17 11:09 Pulse Ox 91 L 03/07/17 11:09 Weight - Most Recent: 129 lb 12.8 oz I&O - Last 24 Hours: Intake & Output 03/06/17 03/07/17 03/07/17 22:59 06:59 14:59 Intake Total 240 300 Output Total 250 200 Balance -10 -200 300 Lab Results Last 24 Hours: Laboratory Results - last 24 hr 03/07/17 03/07/17 Range/Units 04:35 04:35 WBC 11.6 H (4.5-11.0) K/uL RBC 4.61 (4.30-5.90) M/uL Hgb 12.2 (12.0-15.0) g/dL Hct 38.5 L (40.0-54.0) % MCV 84 (80-98) fL MCH 27 (27-31) pg MCHC 32 (32-36) % Plt Count 260 (150-400) K/uL Neut % (Auto) 97 H (36-66) % Lymph % (Auto) 2 L (24-44) % [place] % (Auto) 1 L (2-6) % Eos % (Auto) 0 L (2-4) % Baso % (Auto) 0 (0-1) % Sodium 139 L (140-148) mmol/L Potassium 4.1 (3.6-5.2) mmol/L Chloride 103 (100-108) mmol/L Carbon Dioxide 28 (21-32) mmol/L Anion Gap 12.1 (5.0-14.0) mmol/L BUN 20 H (7-18) mg/dL Creatinine 1.0 (0.8-1.3) mg/dL Est Cr Clr Drug Dosing 45.79 mL/min Estimated GFR (MDRD) > 60 (>60) Glucose 162 H (74-106) mg/dL Calcium 8.5 (8.5-10.1) mg/dL Magnesium 1.7 L (1.8-2.4) mg/dL Med Orders - Current: Current Medications Acetaminophen (Tylenol) 650 mg PO Q4H PRN PRN Reason: Pain (Mild 1-3)/fever Albuterol (Ventolin Hfa) [address] [facility] Last Admin: 03/07/17 06:05 Dose: 1 puff Albuterol (Proventil Neb Soln) 2.5 mg NEB Q4H PRN PRN Reason: Shortness Of Breath/wheezing Albuterol/Ipratropium (Duoneb 3.0-0.5 Mg/3 Ml) [address] [facility] Last Admin: 03/07/17 10:46 Dose: 3 ml Docusate Sodium (Colace) 100 mg PO BID PRN PRN Reason: Constipation Enoxaparin Sodium (Lovenox) [address] [facility] Fluticasone Propionate (Flonase) [address] [facility] Last Admin: 03/07/17 09:38 Dose: 2 sprays Heparin Sodium (Porcine) (Heparin Lock Flush 100 Units/Ml) 500 units FLUSH ASDIRECTED PRN PRN Reason: Flush Magnesium Hydroxide (Milk Of Magnesia) 30 ml PO Q12H PRN PRN Reason: Constipation Methylprednisolone Sodium Succinate (Solu-Medrol) [address] [facility] Last Admin: 03/07/17 09:39 Dose: 40 mg Metoprolol Tartrate (Lopressor) [address] [facility] Mometasone Furoate/Formoterol Fumar (Dulera 200-5 Mcg) [address] [facility] Last Admin: 03/07/17 08:50 Dose: 1 puff Niacin (Niacin) [address] [facility] Last Admin: 03/07/17 09:36 Dose: 500 mg Non-Formulary Medication (Azelastine/Fluticasone [Dymista Nasal [place]]) [address] [facility] Last Admin: 03/07/17 09:38 Dose: Not Given Ondansetron HCl (Zofran) 4 mg IV Q4H PRN PRN Reason: Nausea/Vomiting Oxycodone HCl (Oxycodone) 5 mg PO Q4H PRN PRN Reason: Pain (moderate 4-6) Polyethylene Glycol (Miralax) 17 gm PO DAILY PRN PRN Reason: Constipation Sodium Chloride (Saline Flush) 10 ml FLUSH ASDIRECTED PRN PRN Reason: Keep Vein Open Last Admin: 03/06/17 22:33 Dose: 10 ml Tiotropium [place] (Spiriva Handihaler) [address] [facility] Last Admin: 03/07/17 08:50 Dose: 18 mcg Discontinued Medications Albuterol/Ipratropium (Duoneb 3.0-0.5 Mg/3 Ml) 3 ml NEB ONETIME ONE Stop: 03/06/17 16:39 Last Admin: 03/06/17 17:06 Dose: 3 ml Albuterol/Ipratropium (Duoneb 3.0-0.5 Mg/3 Ml) [address] [facility] Last Admin: 03/07/17 06:05 Dose: 3 ml Diltiazem HCl (Cardizem) [address] [facility] Last Admin: 03/07/17 10:51 Dose: 30 mg Enoxaparin Sodium (Lovenox) [address] [facility] Last Admin: 03/06/17 22:18 Dose: 40 mg Lactated Ringer's (Ringers, Lactated) 1,000 mls @ 125 mls/hr IV ASDIRECTED [facility] Last Admin: 03/06/17 17:36 Dose: 125 mls/hr Sodium Chloride (Normal Saline) 90 mls @ 4 mls/sec IV ASDIRECTED [facility] Last Admin: 03/06/17 21:42 Dose: 4 mls/sec Magnesium Sulfate 2 gm/ Premix 50 mls @ 25 mls/hr IV ONETIME ONE Stop: 03/07/17 10:59 Last Admin: 03/07/17 10:51 Dose: 25 mls/hr Iopamidol (Isovue-370 (76%)) [address] [facility] Last Admin: 03/06/17 21:42 Dose: 100 ml Methylprednisolone Sodium Succinate (Solu-Medrol) [address] [facility] Last Admin: 03/07/17 04:11 Dose: 40 mg Potassium Chloride (Klor-Con M20) 40 meq PO ONETIME ONE Stop: 03/06/17 20:57 Last Admin: 03/06/17 22:17 Dose: 40 meq Sodium Chloride (Saline Flush) 10 ml FLUSH ONETIME ONE Stop: 03/06/17 21:12 Last Admin: 03/06/17 21:42 Dose: 10 ml - Exam Quality Assessment: Supplemental Oxygen, DVT Prophylaxis General: Alert, Oriented, Cooperative, Mild Distress Lungs: Decreased Breath Sounds, Wheezing. No: Rales, Rhonchi, Rub Cardiovascular: Regular Rhythm, No Murmurs, Tachycardia. No: Irregular Rhythm, Bradycardia GI/Abdominal Exam: Normal Bowel Sounds, Soft, Non-Tender, No Organomegaly, No Distention Extremities: Non-Tender, No Pedal Edema Skin: Warm, Dry, Intact - Problem List Review Problem List Initiated/Reviewed/Updated: Yes - My Orders Last 24 Hours: My Active Orders 03/06/17 20:14 Resuscitation Status Routine 03/06/17 20:56 Patient Status [ADT] Routine Ambulate [RC] QID Intake and Output [RC] QSHIFT Notify Provider Vital Signs [RC] ASDIRECTED Oxygen Therapy [RC] PRN RT Aerosol Therapy [RC] ASDIRECTED Up With Assistance [RC] ASDIRECTED Up to Chair [RC] QID Vital Signs [RC] Q4H PT Evaluation and Treatment [CONS] Routine Ang Chest [CT] Stat Acetaminophen [Tylenol] 650 mg PO Q4H PRN Albuterol [Proventil Neb Soln] 2.5 mg NEB Q4H PRN Docusate Sodium [Colace] 100 mg PO BID PRN Magnesium Hydroxide [Milk of Magnesia] 30 ml PO Q12H PRN Ondansetron [Zofran] 4 mg IV Q4H PRN Polyethylene Glycol 3350 [MiraLAX] 17 gm PO DAILY PRN Sodium Chloride 0.9% [Saline Flush] 10 ml FLUSH ASDIRECTED PRN oxyCODONE 5 mg PO Q4H PRN RT Acapella [RESPCARE] Routine Saline Lock Insert [OM.PC] Routine 03/06/17 Dinner Regular Diet [DIET] 03/07/17 04:19 Heparin Sodium [Heparin Lock Flush 100 Units/ML] 500 units FLUSH ASDIRECTED PRN 03/07/17 08:30 Mometasone/Formoterol [Dulera 200-5 MCG] 1 puff IH DAILYRT Tiotropium [Spiriva HandiHaler] 18 mcg INH DAILYRT 03/07/17 10:00 methylPREDNISolone Sod Succ [Solu-MEDROL] 40 mg IVPUSH Q6H 03/07/17 11:00 Albuterol/Ipratropium [DuoNeb 3.0-0.5 MG/3 ML] 3 ml NEB QIDRT 03/07/17 11:45 Metoprolol Tartrate [Lopressor] 25 mg PO Q6H 03/07/17 21:00 Enoxaparin [Lovenox] 40 mg SUBCUT BEDTIME 03/08/17 05:00 BASIC METABOLIC PANEL,BMP [CHEM] Timed MAGNESIUM [CHEM] Timed 03/08/17 08:00 Echo Comp wo Cont [US] Urgent Myocardial Perf Spect Multi [NM] Routine - Plan Plan:: ASSESSMENT AND PLAN HYPOXIC RESPIRATORY COMPROMISE-known history of COPD and lung cancer, status post chemotherapy, and radiation therapy to his right neck. Hospitalized last week with COPD exacerbation secondary to bronchitis with associated hypoxic respiratory failure requiring use of noninvasive positive pressure ventilation. Improved on admission but now developed increased shortness of breath. No evidence of active infection at the present time, current compromise likely secondary to COPD. Will evaluate for pulmonary emboli and underlying cardiac disease. CT angiogram of the chest showed no evidence of pulmonary embolism, infiltrate, or pulmonary edema -Hold on antibiotic therapy, he has recently completed a course of antibiotics -Supplemental oxygen as needed -Nebulizer therapy with albuterol and duo nebs -Solu-Medrol 40 mg IV every 6 hours -[place] scan Cardiolite study to rule out ischemia -Echocardiogram to assess left ventricular function and valvular status. COPD -Management as above METASTATIC LUNG CANCER-status post chemotherapy and recent radiation to the right neck. He is recently seen the oncologist and has been told that they're presently is no evidence of active disease. MAINTENANCE ISSUES -DVT prophylaxis; Lovenox 40 mg subcutaneous daily -GI prophylaxis not indicated -Collins catheter; not indicated -Nutrition; regular diet -Nicotine dependence; not required CODE STATUS-FULL CODE ADMISSION STATUS-patient will be admitted to inpatient status, expect at least a 2 night hospital stay for evaluation and management of problems as outlined above. At the time of this admission I do not reasonably expected evaluation and management of this problem will require more than a 96 hour hospital stay. DISPOSITION-anticipate discharge to home after the hospital stay. PRIMARY CARE PROVIDER-Abdullahi Bolanos
[2017-03-07] MEDS: Metoprolol Tartrate 25 MG Tab PO SCH ×3 (12:18→23:53)
[2017-03-07] MEDS ORDERED: Albuterol 8 GM Inhaler INH PRN (13:35)
[2017-03-07] MEDS: AZELASTINE NAS SCH (19:59)
[2017-03-07] MEDS ORDERED: Enoxaparin 40 MG/0.4 ML Syringe SUBCUT SCH (21:00)
[2017-03-07] MEDS: Sodium Chloride 0.9% 10 ML Syringe FLUSH PRN (21:49)
[2017-03-08] MEDS: methylPREDNISolone Sodium Succinate 40 MG/1 ML SDV IVPUSH SCH ×2 (03:56→14:04)
[2017-03-08] MEDS: Sodium Chloride 0.9% 10 ML Syringe FLUSH PRN (03:59)
[2017-03-08] MEDS: Metoprolol Tartrate 25 MG Tab PO SCH ×2 (05:20→14:07)
[2017-03-08] MEDS: Albuterol/Ipratropium 3.0-0.5 MG/3 ML Neb Soln NEB SCH ×3 (07:16→14:44)
[2017-03-08] MEDS: Tiotropium Inhaler 18 MCG Inhalation Powder Cap Kit of 5 INH SCH (07:18)
[2017-03-08] MEDS: Formoterol/Mometasone 200-5 MCG 8.8 GM Inhaler IH SCH (07:19)
--- NOTE | 2017-03-08 09:38 | CR ---
Two-view chest Comparison: 24 February 2017. The heart and vascular structures are stable. There are no infiltrates or effusions. There is a port a catheter on the left stable. Impression: 1. No acute findings.
[2017-03-08] MEDS: Niacin 500 MG Cap.ER PO SCH (14:06)
[2017-03-08] MEDS: AZELASTINE NAS SCH (14:06)
[2017-03-08 14:10] VITALS: BP 169/66
--- NOTE | 2017-03-08 14:15 | NM ---
Nuclear medicine cardiac Lexiscan stress test. History: Dyspnea with exertion. Technique: The patient was stressed pharmacologically with the administration of Lexiscan. The patien t received intravenously 10.4 millicuries of technetium 99 Myoview followed by rest imaging and 27.5 millicuries followed by stress imaging. Findings: There is a small-moderate defect involving the distal portion of the lateral wall. There is complete redistribution at rest. There is a normal distribution of the radiopharmaceutical elsewhere . There is normal wall motion. The cardiac ejection fraction is within normal limits equal to 71%. Impression: 1. Small-moderate area of ischemia involving the distal portion of the lateral wall. 2. Normal ejection fraction.
--- NOTE | 2017-03-08 14:55 | PCM.DCSUM1 ---
Discharge Summary - Hospital Course Brief History: 86-year-old male with recent COPD exacerbation who presented with progressive dyspnea on exertion and cough. He was admitted for management of persistent/recurrent COPD exacerbation - Discharge Data Discharge Date: 03/08/17 Discharge Disposition: Home, Self-Care 01 Condition: Fair - Discharge Diagnosis/Problem(s) (1) Acute bronchitis SNOMED Code(s): 89333566 ICD Code: J20.9 - ACUTE BRONCHITIS, UNSPECIFIED Status: Acute Qualifiers: Bronchitis organism: unspecified organism Qualified Code(s): J20.9 - Acute bronchitis, unspecified (2) COPD with exacerbation SNOMED Code(s): 363516554 ICD Code: J44.1 - CHRONIC OBSTRUCTIVE PULMONARY DISEASE W (ACUTE) EXACERBATION Status: Acute (3) Dyspnea on exertion SNOMED Code(s): 18802994 ICD Code: R06.09 - OTHER FORMS OF DYSPNEA Status: Acute (4) Abnormal stress test Status: Acute - Patient Summary/Data Consults: Consultations 03/06/17 20:56 PT Evaluation and Treatment [CONS] Routine Please Evaluate and Treat. PT Reason for Consult: Strengthening This query below is only for informational purposes and is not editable. Labs Pending at D/C: Final results of sputum culture Hospital Course: Daron presented to the emergency room with progressive shortness of breath and dyspnea with exertion approximately one week after a recent admission for proctitis and COPD exacerbation. He had initially felt some better but has had decline over the past few days and especially the past 48 hours. Workup in the emergency room revealed hypoxia but no strong evidence for infection. He was admitted to the hospital and started on IV steroids and provided regular and as needed nebulizer treatments. A CT scan of the chest was performed and there was no evidence for pulmonary embolism or pneumonia. Over the next 2 days he did show some improvement in symptoms as well as clinical status. He has not been hypoxic at rest but is hypoxic with any activity. Oxygen saturations down into the low 80s have been noted with activity. He has not had any fevers to suggest infection. On the second day of the hospital stay he did have a [place] scan stress test which revealed a small to moderate size perfusion defect involving the lateral wall. This was completely reversible with no ischemia noted on the rest images. He also had an echocardiogram which showed normal left ventricular function, no wall motion abnormalities and no valvular abnormalities. By the day of discharge she was feeling better but still somewhat short of breath with activity. He is interested in going home at this time. He has been set up for home oxygen. I think he would benefit from the home oxygen to help maintain saturations with activity. I did increase his metoprolol to 50 mg twice a day to help with decreased oxygen demand by the heart. Did also send him home with a prednisone taper for the COPD exacerbation. There is no evidence for volume overload. We did set him up with an up with a referral to cardiology at [facility] so he can discuss his abnormal stress test and consider the utility of an angiogram. Coronary artery disease certainly could be contributing to his dyspnea with exertion. He will be discharged to home this afternoon. He will be contacted by [facility] to set up the cardiology referral after they have reviewed his information. Encouraged him to contact me this week if he has any difficulties after he returns home. I will contact him this is the sputum culture is final to relay these results. - Patient Instructions Diet: Heart Healthy Diet Activity: As Tolerated Showering/Bathing: May Shower Notify Provider of: Fever, Increased Pain, Nausea and/or Vomiting Other/Special Instructions: 1. You were in the hospital for management of exacerbation of COPD thought secondary to bronchitis. It is not entirely clear if this is a bacterial infection, a virus or possibly inflammation related to the recent radiation. I do recommend a prednisone taper following hospital discharge with instructions as follows: -Take 20 mg by mouth twice daily with meals for 3 days then take 20 mg once daily for 5 days. 2. Part of the workup during the hospital stay included a stress test which showed suboptimal blood flow to a small to moderate sized area on the lateral wall of your heart. I would recommend that she will visit with a pole inspector regarding this abnormality. [facility] in [place] is reviewing your case and will contact you with an appointment time. 3. I would recommend that she will increase her metoprolol to 50 mg twice daily. This will help to lower your blood pressure and heart rate which will reduce the workload of the heart. 4. Please seek medical attention if you develop sudden worsening of your shortness of breath, you develop chest pain or chest pressure or if you develop profound fatigue. - Discharge Plan Prescriptions/Med Rec: Metoprolol Tartrate 50 mg PO BID #60 tablet predniSONE 20 mg PO ASDIRECTED #11 tablet Home Medications: Home Meds Albuterol Sulfate [Proair Hfa] 2 puff IH QID 05/01/16 [History] Fluticasone Propionate [Flonase] 2 spray INH BID 05/01/16 [History] Aspirin [Children's Aspirin] 81 mg PO WEEKLY 09/18/16 [History] Tiotropium [Spiriva HandiHaler] 18 mcg INH DAILY 12/26/16 [History] Albuterol [Proventil Neb Soln] 1 dose INH Q6H PRN 02/24/17 [History] Albuterol Sulfate [Proair Hfa] 1 puff INH QID 03/06/17 [History] Mometasone/Formoterol [Dulera 200-5 MCG] 1 inh INH DAILY 03/06/17 [History] Niacin [Niacin ER] 500 mg PO DAILY 03/06/17 [History] Azelastine [Astelin Nasal Soln] 2 puff DENISE BID 03/07/17 [History] Metoprolol Tartrate 50 mg PO BID #60 tablet 03/08/17 [Rx] predniSONE 20 mg PO ASDIRECTED #11 tablet 03/08/17 [Rx] Patient Handouts: Chronic Obstructive Pulmonary Disease Exacerbation, Metoprolol tablets Referrals: Jorge Luis Saldana MD [Primary Care Provider] - - Discharge Summary/Plan Comment DC Time >30 min.: Yes (40 - coordinating cardiology follow-up and home oxygen) - Patient Data Vitals - Most Recent: Last Vital Signs Temp 36.9 C 03/08/17 14:25 Pulse 123 H 03/08/17 14:25 Resp 20 03/08/17 14:25 BP 169/66 H 03/08/17 14:25 Pulse Ox 99 03/08/17 14:25 Weight - Most Recent: 59.33 kg I&O - Last 24 hours: Intake & Output 03/07/17 03/08/17 03/08/17 22:59 06:59 14:59 Intake Total 600 120 Output Total 3 Balance 597 120 Lab Results - Last 24 hrs: Laboratory Results - last 24 hr 03/08/17 Range/Units 04:33 Sodium 139 L (140-148) mmol/L Potassium 3.9 (3.6-5.2) mmol/L Chloride 104 (100-108) mmol/L Carbon Dioxide 29 (21-32) mmol/L Anion Gap 9.9 (5.0-14.0) mmol/L BUN 21 H (7-18) mg/dL Creatinine 1.0 (0.8-1.3) mg/dL Est Cr Clr Drug Dosing 45.79 mL/min Estimated GFR (MDRD) > 60 (>60) Glucose 146 H (74-106) mg/dL Calcium 8.7 (8.5-10.1) mg/dL Magnesium 1.9 (1.8-2.4) mg/dL Med Orders - Current: Current Medications Acetaminophen (Tylenol) 650 mg PO Q4H PRN PRN Reason: Pain (Mild 1-3)/fever Albuterol (Proventil Neb Soln) 2.5 mg NEB Q4H PRN PRN Reason: Shortness Of Breath/wheezing Albuterol (Ventolin Hfa) 0 gm INH QID PRN PRN Reason: Shortness of Breath Albuterol/Ipratropium (Duoneb 3.0-0.5 Mg/3 Ml) 3 ml NEB QIDRT [facility] Last Admin: 03/08/17 14:44 Dose: Not Given Azelastine HCl (Astelin Nasal Soln) 0 ml DENISE BID [facility] Last Admin: 03/08/17 14:06 Dose: 2 spray Docusate Sodium (Colace) 100 mg PO BID PRN PRN Reason: Constipation Enoxaparin Sodium (Lovenox) 40 mg SUBCUT BEDTIME [facility] Last Admin: 03/07/17 20:00 Dose: 40 mg Fluticasone Propionate (Flonase) 0 gm DENISE BID [facility] Last Admin: 03/07/17 20:00 Dose: 2 sprays Heparin Sodium (Porcine) (Heparin Lock Flush 100 Units/Ml) 500 units FLUSH ASDIRECTED PRN PRN Reason: Flush Last Admin: 03/08/17 14:14 Dose: 500 units Magnesium Hydroxide (Milk Of Magnesia) 30 ml PO Q12H PRN PRN Reason: Constipation Methylprednisolone Sodium Succinate (Solu-Medrol) 40 mg IVPUSH Q6H [facility] Last Admin: 03/08/17 14:04 Dose: 40 mg Metoprolol Tartrate (Lopressor) 25 mg PO Q6H [facility] Last Admin: 03/08/17 14:07 Dose: 25 mg Mometasone Furoate/Formoterol Fumar (Dulera 200-5 Mcg) 1 puff IH DAILYRT [facility] Last Admin: 03/08/17 07:19 Dose: 1 puff Niacin (Niacin) 500 mg PO DAILY [facility] Last Admin: 03/08/17 14:06 Dose: 500 mg Ondansetron HCl (Zofran) 4 mg IV Q4H PRN PRN Reason: Nausea/Vomiting Oxycodone HCl (Oxycodone) 5 mg PO Q4H PRN PRN Reason: Pain (moderate 4-6) Polyethylene Glycol (Miralax) 17 gm PO DAILY PRN PRN Reason: Constipation Sodium Chloride (Saline Flush) 10 ml FLUSH ASDIRECTED PRN PRN Reason: Keep Vein Open Last Admin: 03/08/17 03:59 Dose: 10 ml Tiotropium [place] (Spiriva Handihaler) 18 mcg INH DAILYRT [facility] Last Admin: 03/08/17 07:18 Dose: 18 mcg Discontinued Medications Albuterol (Ventolin Hfa) 0 gm INH QID [facility] Last Admin: 03/07/17 06:05 Dose: 1 puff Albuterol/Ipratropium (Duoneb 3.0-0.5 Mg/3 Ml) 3 ml NEB ONETIME ONE Stop: 03/06/17 16:39 Last Admin: 03/06/17 17:06 Dose: 3 ml Albuterol/Ipratropium (Duoneb 3.0-0.5 Mg/3 Ml) 3 ml NEB QID [facility] Last Admin: 03/07/17 06:05 Dose: 3 ml Diltiazem HCl (Cardizem) 30 mg PO Q6HR [facility] Last Admin: 03/07/17 10:51 Dose: 30 mg Enoxaparin Sodium (Lovenox) 40 mg SUBCUT DAILY [facility] Last Admin: 03/06/17 22:18 Dose: 40 mg Lactated Ringer's (Ringers, Lactated) 1,000 mls @ 125 mls/hr IV ASDIRECTED [facility] Last Admin: 03/06/17 17:36 Dose: 125 mls/hr Sodium Chloride (Normal Saline) 90 mls @ 4 mls/sec IV ASDIRECTED [facility] Last Admin: 03/06/17 21:42 Dose: 4 mls/sec Magnesium Sulfate 2 gm/ Premix 50 mls @ 25 mls/hr IV ONETIME ONE Stop: 03/07/17 10:59 Last Admin: 03/07/17 10:51 Dose: 25 mls/hr Iopamidol (Isovue-370 (76%)) 100 ml IV . DIRECTED [facility] Last Admin: 03/06/17 21:42 Dose: 100 ml Methylprednisolone Sodium Succinate (Solu-Medrol) 40 mg IVPUSH Q6H [facility] Last Admin: 03/07/17 04:11 Dose: 40 mg Non-Formulary Medication (Azelastine/Fluticasone [Dymista Nasal [place]]) 2 puff NS BID [facility] Last Admin: 03/07/17 09:38 Dose: Not Given Potassium Chloride (Klor-Con M20) 40 meq PO ONETIME ONE Stop: 03/06/17 20:57 Last Admin: 03/06/17 22:17 Dose: 40 meq Regadenoson (Lexiscan) 0.4 mg IVPUSH ONETIME ONE Stop: 03/08/17 12:19 Last Admin: 03/08/17 12:27 Dose: 0.4 mg Sodium Chloride (Saline Flush) 10 ml FLUSH ONETIME ONE Stop: 03/06/17 21:12 Last Admin: 03/06/17 21:42 Dose: 10 ml *Q Meaningful Use (DIS) - VTE *Q VTE Criteria *Q: - Stroke *Q Stroke Criteria *Q: - AMI *Q AMI Criteria *Q:
--- NOTE | 2017-03-09 01:44 | STRESS ---
DATE OF SERVICE: 03/08/2017 PROPOSED PROCEDURE: Lexiscan Cardiolite stress test. INDICATION FOR STRESS TEST: Dyspnea on exertion. REFERRING PHYSICIAN: Dr. Jarrett Hennessy. PRIMARY CARE PHYSICIAN: Dr. Jorge Luis Saldana. DESCRIPTION OF PROCEDURE: Daron presents from an inpatient room for a Lexiscan stress test. Preprocedure, his blood pressure is 156/79 with a pulse of 113. Baseline EKG shows a sinus tachycardia and a right axis deviation. The stress test is administered per the protocol. Review of the continuous EKG monitoring showed no significant changes in the ST segments or the T-waves. Heart rate did rise to a maximum of 121 at the 1-minute keyon of recovery and then slowed slightly thereafter. Blood pressure dipped slightly with a lowest reading of 129/75 at the 4-minute keyon of recovery. Postprocedure, blood pressure is 136/68 and his pulse is 119. Review of the solid waste technician's notes suggest that he had mild shortness of breath during the early recovery phase, but no chest pain or tightness. He is asymptomatic at the completion of the test and returned to his inpatient room. IMPRESSION: Negative EKG portion of the stress test. Slight shortness of breath was reported during the early recovery phase. The nuclear medicine portion will be interpreted separately for additional clinical correlation. Antwon Abraham MD /[id number]
--- NOTE | 2017-03-12 11:36 | PCM.SN ---
- Free Text/Narrative Note: Talked to Don on 03/09 and 03/10 after hospital d/c. Sputum culture returned growing Enterobacter. He is feeling and feeling better each day. He is not having any fevers. His cough is slowly getting better. We discussed culture results. I have elected not to provide abx at this time since he is improving without them and the quantity of bacteria cultured was quite small. He was encouraged to seek medical attention if he developed fever or had worsening of his respiratory status. Antwon Abraham MD
== END 2017-03-08 15:28 | disposition home or self-care (01) | DRG 192 ==
LOC: JP.ED 15:03 → JP.MS 20:11
PROVIDERS: ADMIT Hospitalist; ATTEND Internal Medicine
DX: J44.0 Chronic obstructive pulmonary disease with (acute) lower respiratory infection (principal); J20.9 Acute bronchitis, unspecified; J44.1 Chronic obstructive pulmonary disease with (acute) exacerbation; Z87.891 Personal history of nicotine dependence; R94.39 Abnormal result of other cardiovascular function study; R06.02 Shortness of breath; Z99.81 Dependence on supplemental oxygen; R09.02 Hypoxemia; Z85.118 Personal history of other malignant neoplasm of bronchus and lung; Z92.3 Personal history of irradiation; Z92.21 Personal history of antineoplastic chemotherapy; R33.9 Retention of urine, unspecified; Z85.89 Personal history of malignant neoplasm of other organs and systems; Z88.6 Allergy status to analgesic agent; Z88.0 Allergy status to penicillin; Z88.7 Allergy status to serum and vaccine; Z88.8 Allergy status to other drugs, medicaments and biological substances; Z79.82 Long term (current) use of aspirin; Z79.52 Long term (current) use of systemic steroids; J30.9 Allergic rhinitis, unspecified
CPT/HCPCS: 36415; 36600; 71020 ×2; 80053; 82803; 83605; 85025; 86140; 87040 ×2; 87070; 87077; 87186; 87205; 94640; 96360; 96361; 99285; J7120; J7620; 71275; 78452; 78452-26; 80048; 83735; 93306; 94664; 94667; 97162-GP; A9270-GY; A9500; J1642; J1650; J2785; J2920; J3475; J7030; J7050; Q9967

== ENCOUNTER 2017-03-27 07:58 | Inpatient (IN) | payer MEDICARE, OTHER ==
[2017-03-27] MEDS: Albuterol/Ipratropium 3.0-0.5 MG/3 ML Neb Soln NEB ONE ×2 (08:20→12:06)
[2017-03-27] MEDS: methylPREDNISolone Sodium Succinate 125 MG/2 ML SDV IVPUSH ONE ×2 (08:20→12:06)
--- NOTE | 2017-03-27 08:21 | EDM.PDOC ---
ED HPI GENERAL MEDICAL PROBLEM - General Chief Complaint: Respiratory Problem Stated Complaint: SOB Time Seen by Provider: 03/27/17 08:00 Source of Information: Reports: Patient History Limitations: Reports: No Limitations - History of Present Illness INITIAL COMMENTS - FREE TEXT/NARRATIVE: 86-year-old male with chronic recurring COPD exacerbations was doing well after a recent hospitalization but over the last 24-48 hours has become markedly more short of breath. He took 2 nebulizers this morning without relief. He arrived in moderate respiratory distress with O2 saturations 85-90%. He normally wears oxygen at night. He is tachycardic and hypertensive. Very anxious. He has no pain, no fever, he thinks he may have worsened things by trying to burn some objects in the yard a few days ago. Onset: Gradual (Over the past 2 days) Severity: Moderate Associated Symptoms: Reports: Cough, Shortness of Breath, Weakness. Denies: Confusion, Chest Pain, Fever/Chills - Related Data Allergies Allergy/AdvReac Type Severity Reaction Status Date / Time amoxicillin Allergy Rash Verified 03/27/17 08:44 influenza virus vaccine, Allergy Other Verified 03/27/17 08:44 specific Penicillins Allergy Rash Verified 03/27/17 08:44 colesevelam AdvReac Stomach Verified 03/27/17 08:44 Upset piroxicam [From Feldene] AdvReac Nausea and Verified 03/27/17 08:44 Vomiting Qmtobcg-Mmz-Kxl Reductase AdvReac Muscle Verified 03/27/17 08:44 Inhibitor Aches Home Meds: Home Meds Fluticasone Propionate [Flonase] 2 spray NASBOTH BID 05/01/16 [History] Aspirin [Children's Aspirin] 81 mg PO WEEKLY 09/18/16 [History] Tiotropium [Spiriva HandiHaler] 18 mcg INH DAILY 12/26/16 [History] Albuterol [Proventil Neb Soln] 1 dose INH Q6H PRN 02/24/17 [History] Albuterol Sulfate [Proair Hfa] 1 puff INH QID PRN 03/06/17 [History] Mometasone/Formoterol [Dulera 200-5 MCG] 2 inh INH BID 03/06/17 [History] Niacin [Niacin ER] 500 mg PO DAILY 03/06/17 [History] Azelastine [Astelin Nasal Soln] 2 puff NASBOTH BID 03/07/17 [History] Diltiazem HCl [Cardizem] 30 mg PO DAILY 03/27/17 [History] Isosorbide Mononitrate [Imdur] 30 mg PO DAILY 03/27/17 [History] predniSONE 10 mg PO ASDIRECTED 03/27/17 [History] predniSONE [Prednisone] 5 mg PO DAILY 03/27/17 [History] Past Medical History HEENT History: Reports: Allergic Rhinitis, Cataract, Hard of Hearing, Impaired Vision Cardiovascular History: Reports: High Cholesterol Respiratory History: Reports: Asthma, COPD, Other (See Below) Other Respiratory History: lung cancer Gastrointestinal History: Reports: Hemorrhoids Genitourinary History: Reports: None, Other (See Below) Other Genitourinary History: prostate surgery Musculoskeletal History: Reports: Arthritis Oncologic (Cancer) History: Reports: Lung, Other (See Below) Other Oncologic History: port a cath placed on right side flushed last 1-2 wekks ago Dermatologic History: Reports: Eczema - Infectious Disease History Infectious Disease History: Reports: Chicken Pox, Measles, Mumps - Past Surgical History Respiratory Surgical History: Reports: Lung Biopsies GI Surgical History: Reports: Colonoscopy, Other (See Below) Other GI Surgeries/Procedures: hemorrhoidectomy Social & Family History - Family History Family Medical History: Noncontributory - Tobacco Use Smoking Status *Q: Former Smoker Years of Tobacco use: 65 Packs/Tins Daily: 0.5 Used Tobacco, but Quit: Yes Month Tobacco Last Used: May Second Hand Smoke Exposure: No - Caffeine Use Caffeine Use: Reports: Coffee Caffeine Use Comment: decaf cup a day - Alcohol Use Days Per Week of Alcohol Use: 7 Number of Drinks Per Day: 2 Total Drinks Per Week: 14 - Recreational Drug Use Recreational Drug Use: No ED ROS GENERAL - Review of Systems Review Of Systems: See Below Constitutional: Reports: Malaise. Denies: Fever, Chills HEENT: Reports: No Symptoms Respiratory: Reports: Shortness of Breath, Cough. Denies: Sputum Cardiovascular: Denies: Chest Pain, Palpitations GI/Abdominal: Denies: Abdominal Pain, Nausea, Vomiting Skin: Reports: Bruising (Bruises easily, difficult to start IVs) Neurological: Denies: Headache Psychiatric: Reports: No Symptoms ED EXAM, GENERAL - Physical Exam Exam: See Below Exam Limited By: Respiratory Distress (Mild to moderate respiratory distress on arrival) General Appearance: Alert, Anxious, Moderate Distress Eye Exam: Bilateral Eye: EOMI Respiratory/Chest: Respiratory Distress, Wheezing (Expiratory wheezes and decreased breath sounds are at the bases, no significant rales or rhonchi) Cardiovascular: Tachycardia, Irregularly Irregular, Other (Monitor shows sinus rhythm with frequent PACs) GI/Abdominal: Soft, Non-Tender Extremities: No: Pedal Edema Neurological: Alert, Oriented Psychiatric: Anxious Skin Exam: Warm, Dry Course - Vital Signs Last Recorded V/S: Last Vital Signs Temp 97.9 F 03/27/17 11:38 Pulse 130 H 03/27/17 11:38 Resp 16 03/27/17 11:38 BP 169/80 H 03/27/17 11:38 Pulse Ox 100 03/27/17 11:38 - Orders/Labs/Meds Orders: Active Orders 24 hr Category Date Time Status RT Aerosol Therapy [RC] ASDIRECTED Care 03/27/17 08:10 Inactive RT Aerosol Therapy [RC] ASDIRECTED Care 03/27/17 08:37 Inactive Chest 1V Frontal [CR] Stat Exams 03/27/17 08:09 Taken cefTRIAXone [Rocephin] 2 gm Med 03/27/17 10:30 Active Sodium Chloride 0.9% [Normal Saline] 50 ml IV Q24H Medication Orders Acetaminophen (Tylenol) 650 mg PO Q4H PRN PRN Reason: Pain (Mild 1-3)/fever Albuterol/Ipratropium (Duoneb 3.0-0.5 Mg/3 Ml) 3 ml NEB QIDRT [facility] Aspirin (Aspirin) 81 mg PO DAILY [facility] Azelastine HCl (Astelin Nasal Soln) 0 ml NASBOTH BID [facility] Benzonatate (Tessalon Perles) 100 mg PO TID PRN PRN Reason: Cough Guaifenesin/Dextromethorphan (Robitussin Dm) 10 ml PO Q4H PRN PRN Reason: Cough Ceftriaxone Sodium 2 gm/ (Sodium Chloride) 50 mls @ 100 mls/hr IV Q24H [facility] Last Admin: 03/27/17 11:17 Dose: 100 mls/hr Doxycycline Hyclate 100 mg/ (Sodium Chloride) 100 mls @ 100 mls/hr IV Q12H [facility] Sodium Chloride (Normal Saline) 1,000 mls @ 125 mls/hr IV ASDIRECTED [facility] Last Admin: 03/27/17 11:38 Dose: 125 mls/hr Isosorbide Mononitrate (Imdur) 30 mg PO DAILY [facility] Levalbuterol HCl (Xopenex) 1.25 mg NEB Q4H PRN PRN Reason: Shortness of Breath Lorazepam (Ativan) 0.5 - 1 mg IVPUSH Q4H PRN PRN Reason: Anxiety Methylprednisolone Sodium Succinate (Solu-Medrol) 62.5 mg IVPUSH Q6H [facility] Metoprolol Tartrate (Lopressor) 50 mg PO BID [facility] Mometasone Furoate/Formoterol Fumar (Dulera 200-5 Mcg) 2 puff IH BIDRT [facility] Morphine Sulfate (Morphine) 2 - 4 mg IVPUSH Q2H PRN PRN Reason: Pain (severe 7-10) Niacin (Niacin) 500 mg PO DAILY [facility] Ondansetron HCl (Zofran Odt) 4 mg PO Q6H PRN PRN Reason: Nausea able to take PO Pantoprazole Sodium (Protonix) 40 mg PO ACBREAKFAST [facility] Polyethylene Glycol (Miralax) 17 gm PO DAILY PRN PRN Reason: Constipation Senna/Docusate Sodium (Senna Plus) 1 tab PO BID PRN PRN Reason: Constipation Tiotropium [place] (Spiriva Handihaler) 18 mcg INH DAILYRT [facility] Labs: Laboratory Tests 03/27/17 03/27/17 Range/Units 08:09 08:09 WBC 8.9 (4.5-11.0) K/uL RBC 4.10 L (4.30-5.90) M/uL Hgb 11.2 L (12.0-15.0) g/dL Hct 35.5 L (40.0-54.0) % MCV 87 (80-98) fL MCH 27 (27-31) pg MCHC 32 (32-36) % Plt Count 364 (150-400) K/uL Neut % (Auto) 76 H (36-66) % Lymph % (Auto) 9 L (24-44) % [place] % (Auto) 8 H (2-6) % Eos % (Auto) 6 H (2-4) % Baso % (Auto) 1 (0-1) % Sodium 141 (140-148) mmol/L Potassium 3.5 L (3.6-5.2) mmol/L Chloride 105 (100-108) mmol/L Carbon Dioxide 28 (21-32) mmol/L Anion Gap 11.5 (5.0-14.0) mmol/L BUN 17 (7-18) mg/dL Creatinine 1.2 (0.8-1.3) mg/dL Est Cr Clr Drug Dosing 39.86 mL/min Estimated GFR (MDRD) 58 L (>60) Glucose 111 H (74-106) mg/dL Calcium 9.1 (8.5-10.1) mg/dL Troponin I < 0.017 (0.000-0.056) ng/mL Meds: Medications Generic Name Dose Route Start Last Admin Trade Name Freq PRN Reason Stop Dose Admin Acetaminophen 650 mg 03/27/17 11:09 Tylenol PO Q4H PRN Pain (Mild 1-3)/fever Albuterol/Ipratropium 3 ml 03/27/17 15:00 Duoneb 3.0-0.5 Mg/3 Ml NEB QIDRT [facility] Aspirin 81 mg 03/28/17 09:00 Aspirin PO DAILY [facility] Azelastine HCl 0 ml 03/27/17 21:00 Astelin Nasal Soln NASBOTH BID [facility] Benzonatate 100 mg 03/27/17 11:09 Tessalon Perles PO TID PRN Cough Guaifenesin/Dextromethorphan 10 ml 03/27/17 11:09 Robitussin Dm PO Q4H PRN Cough Ceftriaxone Sodium 2 gm/ 50 mls @ 100 mls/hr 03/27/17 10:30 03/27/17 11:17 Sodium Chloride IV 100 mls/hr Q24H [facility] Administration Doxycycline Hyclate 100 mg/ 100 mls @ 100 mls/hr 03/27/17 12:00 Sodium Chloride IV Q12H [facility] Sodium Chloride 1,000 mls @ 125 mls/hr 03/27/17 11:09 03/27/17 11:38 Normal Saline IV 125 mls/hr ASDIRECTED [facility] Administration Isosorbide Mononitrate 30 mg 03/28/17 09:00 Imdur PO DAILY [facility] Levalbuterol HCl 1.25 mg 03/27/17 11:09 Xopenex NEB Q4H PRN Shortness of Breath Lorazepam 0.5 - 1 mg 03/27/17 11:09 Ativan IVPUSH Q4H PRN Anxiety Methylprednisolone Sodium Succinate 62.5 mg 03/27/17 14:00 Solu-Medrol IVPUSH Q6H [facility] Metoprolol Tartrate 50 mg 03/27/17 11:09 Lopressor PO BID [facility] Mometasone Furoate/Formoterol Fumar 2 puff 03/27/17 21:00 Dulera 200-5 Mcg IH BIDRT [facility] Morphine Sulfate 2 - 4 mg 03/27/17 11:09 Morphine IVPUSH Q2H PRN Pain (severe 7-10) Niacin 500 mg 03/28/17 09:00 Niacin PO DAILY [facility] Ondansetron HCl 4 mg 03/27/17 11:09 Zofran Odt PO Q6H PRN Nausea able to take PO Pantoprazole Sodium 40 mg 03/28/17 07:30 Protonix PO ACBREAKFAST [facility] Polyethylene Glycol 17 gm 03/27/17 11:09 Miralax PO DAILY PRN Constipation Senna/Docusate Sodium 1 tab 03/27/17 11:09 Senna Plus PO BID PRN Constipation Tiotropium [place] 18 mcg 03/28/17 07:00 Spiriva Handihaler INH DAILYRT [facility] Discontinued Medications Generic Name Dose Route Start Last Admin Trade Name Freq PRN Reason Stop Dose Admin Albuterol/Ipratropium 3 ml 03/27/17 08:10 03/27/17 08:20 Duoneb 3.0-0.5 Mg/3 Ml NEB 03/27/17 08:11 3 ml ONETIME ONE Administration Levalbuterol HCl 1.25 mg 03/27/17 08:37 03/27/17 08:30 Xopenex NEB 03/27/17 08:38 1.25 mg ONETIME ONE Administration Methylprednisolone Sodium Succinate 125 mg 03/27/17 08:09 03/27/17 08:20 Solu-Medrol IVPUSH 03/27/17 08:10 125 mg ONETIME ONE Administration Sodium Chloride 3 ml 03/27/17 08:45 03/27/17 08:30 Sodium Chloride 0.9% INH 03/27/17 08:46 3 ml ONETIME ONE Administration - Re-Assessments/Exams Free Text/Narrative Re-Assessment/Exam: 03/27/17 08:20 O2 was supplied with a nonrebreather mask which very quickly increased his O2 saturations to 98%. A DuoNeb was given, IV started and the patient given 125 mg of Solu-Medrol IV. CBC BMP and troponin were obtained as well as a 1 view chest x-ray. 03/27/17 08:54 Chest x-ray shows no effusions, there may be some generous vascular flow but a recent echocardiogram showed good cardiac function. Troponin was negative. White count was normal. Patient continued to become more comfortable but had persistent tightness and wheezing. After the original DuoNeb as Xopenex nebulizer was given. He was switched from a nonrebreather to nasal cannula and continued to maintain saturations in the mid 90s. Unfortunately I do not believe he is well enough to try to go home and will need 1 to 2 days in the hospital for additional steroids and pulmonary treatment. I discussed this with our hospitalist Dr. Abraham, he agreed to see the patient to assess for possible admission. Departure - Departure Time of Disposition: 11:21 Disposition: Admitted As Inpatient 68 Condition: Poor Clinical Impression: COPD with exacerbation - Discharge Information - My Orders Last 24 Hours: My Active Orders 03/27/17 08:09 Chest 1V Frontal [CR] Stat 03/27/17 08:10 RT Aerosol Therapy [RC] ASDIRECTED 03/27/17 08:37 RT Aerosol Therapy [RC] ASDIRECTED - Assessment/Plan Last 24 Hours: My Active Orders 03/27/17 08:09 Chest 1V Frontal [CR] Stat 03/27/17 08:10 RT Aerosol Therapy [RC] ASDIRECTED 03/27/17 08:37 RT Aerosol Therapy [RC] ASDIRECTED
[2017-03-27] MEDS: Levalbuterol HCl 1.25 MG/3 ML Neb NEB ONE ×2 (08:30→12:06)
[2017-03-27] MEDS: Sodium Chloride 0.9% Inhalation Soln 3 ML Neb INH ONE ×2 (08:30→12:06)
[2017-03-27] MEDS ORDERED: cefTRIAXone 2 GM in Sodium Chloride 0.9% 50 ML IV SCH (10:30)
--- NOTE | 2017-03-27 10:46 | PCM.HP ---
H&P History of Present Illness - General Date of Service: 03/27/17 Admit Problem/Dx: Admission Diagnosis/Problem Admission Diagnosis/Problem Acute bronchitis Source of Information: Patient, Provider History Limitations: Reports: No Limitations - History of Present Illness Initial Comments - Free Text/Narative: Daron presented to the emergency room today with several days of progressive shortness of breath and cough with more acute increase in symptoms yesterday evening and through the night. He is now very short of breath even at rest. He has a loose cough with occasional yellow sputum production. He is not aware of any fevers at home. He does not report orthopnea but did not sleep last night because of his significant shortness of breath. No complaints of chest pain or chest tightness. Appetite had been okay until yesterday. No complaints of abdominal pain or diarrhea. No obvious sick contacts. No recent difficulties with chest pain. He did see the insurance premium auditor who recommended medical management or his abnormal stress test and he was started on isosorbide. He is not sure if it has helped or not yet. Workup in the emergency room most remarkable for his respiratory distress and he has been started on noninvasive ventilation. Laboratory studies are reassuring and chest x-ray is clear. I suspect he has acute bronchitis and is COPD exacerbation. He has received nebs and steroids and will be admitted to the intensive care unit on noninvasive ventilation. - Related Data Allergies/Adverse Reactions: Allergies Allergy/AdvReac Type Severity Reaction Status Date / Time amoxicillin Allergy Rash Verified 03/27/17 08:44 influenza virus vaccine, Allergy Other Verified 03/27/17 08:44 specific Penicillins Allergy Rash Verified 03/27/17 08:44 colesevelam AdvReac Stomach Verified 03/27/17 08:44 Upset piroxicam [From Feldene] AdvReac Nausea and Verified 03/27/17 08:44 Vomiting Rgenmmy-Ldy-Ekz Reductase AdvReac Muscle Verified 03/27/17 08:44 Inhibitor Aches Home Medications: Home Meds Fluticasone Propionate [Flonase] 2 spray NASBOTH BID 05/01/16 [History] Aspirin [Children's Aspirin] 81 mg PO WEEKLY 09/18/16 [History] Tiotropium [Spiriva HandiHaler] 18 mcg INH DAILY 12/26/16 [History] Albuterol [Proventil Neb Soln] 1 dose INH Q6H PRN 02/24/17 [History] Albuterol Sulfate [Proair Hfa] 1 puff INH QID PRN 03/06/17 [History] Mometasone/Formoterol [Dulera 200-5 MCG] 2 inh INH BID 03/06/17 [History] Niacin [Niacin ER] 500 mg PO DAILY 03/06/17 [History] Azelastine [Astelin Nasal Soln] 2 puff NASBOTH BID 03/07/17 [History] Diltiazem HCl [Cardizem] 30 mg PO DAILY 03/27/17 [History] Isosorbide Mononitrate [Imdur] 30 mg PO DAILY 03/27/17 [History] predniSONE 10 mg PO ASDIRECTED 03/27/17 [History] predniSONE [Prednisone] 5 mg PO DAILY 03/27/17 [History] Past Medical History HEENT History: Reports: Allergic Rhinitis, Cataract, Hard of Hearing, Impaired Vision Cardiovascular History: Reports: High Cholesterol Respiratory History: Reports: Asthma, COPD, Other (See Below) Other Respiratory History: lung cancer Gastrointestinal History: Reports: Hemorrhoids Genitourinary History: Reports: None, Other (See Below) Other Genitourinary History: prostate surgery Musculoskeletal History: Reports: Arthritis Oncologic (Cancer) History: Reports: Lung, Other (See Below) Other Oncologic History: port a cath placed on right side flushed last 1-2 wekks ago Dermatologic History: Reports: Eczema - Infectious Disease History Infectious Disease History: Reports: Chicken Pox, Measles, Mumps - Past Surgical History Respiratory Surgical History: Reports: Lung Biopsies GI Surgical History: Reports: Colonoscopy, Other (See Below) Other GI Surgeries/Procedures: hemorrhoidectomy Social & Family History - Family History Family Medical History: Noncontributory - Tobacco Use Smoking Status *Q: Former Smoker Years of Tobacco use: 65 Packs/Tins Daily: 0.5 Used Tobacco, but Quit: Yes Month Tobacco Last Used: May Second Hand Smoke Exposure: No - Caffeine Use Caffeine Use: Reports: Coffee Caffeine Use Comment: decaf cup a day - Alcohol Use Days Per Week of Alcohol Use: 7 Number of Drinks Per Day: 2 Total Drinks Per Week: 14 - Recreational Drug Use Recreational Drug Use: No H&P Review of Systems - Review of Systems: Review Of Systems: See Below Free Text/Narrative: A complete 12 point review of systems was obtained. Pertinent positives and negatives are noted in the history of present illness. All other systems were reviewed and were negative except as noted. Exam - Exam Exam: See Below - Vital Signs Vital Signs: Last Vital Signs Temp 37.1 C 03/27/17 08:05 Pulse 128 H 03/27/17 09:36 Resp 16 03/27/17 09:36 BP 192/94 H 03/27/17 09:36 Pulse Ox 85 L 03/27/17 09:55 Weight: 61.689 kg - Exam Quality Assessment: Supplemental Oxygen General: Alert, Oriented, Cooperative, Mild Distress HEENT: Conjunctiva Clear, Mucosa Moist & [place]. No: Scleral Icterus Neck: Supple, Trachea Midline. No: Lymphadenopathy, JVD Lungs: Rhonchi (right lung), Wheezing (mild diffuse exp wheezing), Other (poor air movement). No: Normal Respiratory Effort (increased work of breathing) Cardiovascular: Regular Rhythm, Tachycardia. No: Systolic Murmur GI/Abdominal Exam: Soft, Non-Tender, No Distention Back Exam: Normal Inspection, Full Range of Motion Extremities: No Pedal Edema. No: Joint Swelling, Increased Warmth Peripheral Pulses: 2+: Dorsalis Pedis (L), Dorsalis Pedis (R) Skin: Warm, Dry Neuro Extensive - Mental Status: Alert, Oriented x3, Nl Response to Commands Neuro Extensive - Motor, Sensory, Reflexes: CN II-XII Intact. No: Dysarthria, Abnormal Motor, Tremor Psychiatric: Alert, Normal Affect - Patient Data Lab Results Last 24 hrs: Laboratory Results - last 24 hr 03/27/17 03/27/17 Range/Units 08:09 08:09 WBC 8.9 (4.5-11.0) K/uL RBC 4.10 L (4.30-5.90) M/uL Hgb 11.2 L (12.0-15.0) g/dL Hct 35.5 L (40.0-54.0) % MCV 87 (80-98) fL MCH 27 (27-31) pg MCHC 32 (32-36) % Plt Count 364 (150-400) K/uL Neut % (Auto) 76 H (36-66) % Lymph % (Auto) 9 L (24-44) % [place] % (Auto) 8 H (2-6) % Eos % (Auto) 6 H (2-4) % Baso % (Auto) 1 (0-1) % Sodium 141 (140-148) mmol/L Potassium 3.5 L (3.6-5.2) mmol/L Chloride 105 (100-108) mmol/L Carbon Dioxide 28 (21-32) mmol/L Anion Gap 11.5 (5.0-14.0) mmol/L BUN 17 (7-18) mg/dL Creatinine 1.2 (0.8-1.3) mg/dL Est Cr Clr Drug Dosing 39.86 mL/min Estimated GFR (MDRD) 58 L (>60) Glucose 111 H (74-106) mg/dL Calcium 9.1 (8.5-10.1) mg/dL Troponin I < 0.017 (0.000-0.056) ng/mL Result Diagrams: 03/27/17 08:09 03/27/17 08:09 Imaging Impressions Last 24 hrs: CXR - images personally reviewed - lungs are clear with no effusion, mass, infiltrate or chf seen. Heart size is normal. similar to cxr from 03/06/17 *Q Meaningful Use (ADM) - VTE *Q VTE Criteria *Q: - VTE Risk Assess *Q Each Risk Factor Represents 1 Point: Abnormal Pulmonary Function (COPD) Total Score 1 Point Risk Factors: 1 Each Risk Factor Represents 2 Points: None Total Score 2 Point Risk Factors: 0 Each Risk Factor Represents 3 Points: Age 75 Years or Greater Total Score 3 Point Risk Factors: 3 Each Risk Factor Represents 5 Points: None Total Score 5 Point Risk Factors: 0 Venous Thromboembolism Risk Factor Score *Q: 4 - Stroke *Q Stroke Criteria *Q: - AMI *Q AMI Criteria *Q: - Problem List (1) Acute bronchitis SNOMED Code(s): 04255507 ICD Code: J20.9 - ACUTE BRONCHITIS, UNSPECIFIED Status: Acute Current Visit: No Qualifiers: Bronchitis organism: unspecified organism Qualified Code(s): J20.9 - Acute bronchitis, unspecified (2) COPD with exacerbation SNOMED Code(s): 740764379 ICD Code: J44.1 - CHRONIC OBSTRUCTIVE PULMONARY DISEASE W (ACUTE) EXACERBATION Status: Acute Current Visit: Yes (3) Cancer of lung SNOMED Code(s): 090810021 ICD Code: C34.90 - MALIGNANT NEOPLASM OF UNSP PART OF UNSP BRONCHUS OR LUNG Status: Chronic Current Visit: No Qualifiers: Laterality: unspecified laterality Lung location: unspecified part of lung Qualified Code(s): C34.90 - Malignant neoplasm of unspecified part of unspecified bronchus or lung (4) Coronary artery disease SNOMED Code(s): 22310204 ICD Code: I25.10 - ATHSCL HEART DISEASE OF [place] CORONARY ARTERY W/O ANG PCTRS Status: Acute Current Visit: Yes Qualifiers: Coronary Disease-Associated Artery/Lesion type: [place] artery [place] vs. transplanted heart: [place] heart Associated angina: without angina Qualified Code(s): I25.10 - Atherosclerotic heart disease of [place] coronary artery without angina pectoris Problem List Initiated/Reviewed/Updated: Yes Orders Last 24hrs: Active Orders 24 hr Category Date Time Status Patient Status Manage Transfer [TRANSFER] Routine ADT 03/27/17 10:31 Ordered RT Aerosol Therapy [RC] ASDIRECTED Care 03/27/17 08:10 Active RT Aerosol Therapy [RC] ASDIRECTED Care 03/27/17 08:37 Active Chest 1V Frontal [CR] Stat Exams 03/27/17 08:09 Taken cefTRIAXone [Rocephin] 2 gm Med 03/27/17 10:30 Active Sodium Chloride 0.9% [Normal Saline] 50 ml IV Q24H Resuscitation Status Routine Resus Stat 03/27/17 10:33 Ordered Medication Orders Ceftriaxone Sodium 2 gm/ (Sodium Chloride) 50 mls @ 100 mls/hr IV Q24H [facility] Assessment/Plan Comment:: ASSESSMENT AND PLAN - Acute bronchitis with acute COPD exacerbation - complicated by hypoxic respiratory failure requiring noninvasive ventilation. Yellow sputum concerning for bronchitis rather than simply COPD exacerbation without infection. Currently not febrile. Most recent sputum culture did have Enterobacter but only a few colonies and he was improving rapidly without antibiotics so he did not ever receive antibiotic treatment. This was 2 weeks ago. -Ceftriaxone and doxycycline -Sputum culture -Supplement oxygen -Scheduled and as needed nebs -Noninvasive ventilation as needed -IV steroids -IV fluids Coronary artery disease - recent abnormal stress test prompted cardiology consultation. Medical management was recommended and isosorbide was initiated. He was recently changed from metoprolol to diltiazem but continues to have significant sinus tachycardia. -Discontinue diltiazem -Restart metoprolol -Continue isosorbide -Continue aspirin Lung cancer - status post recent radiation treatment. Clinically doing well at this time and has follow-up in couple weeks. Maintenance issues - - DVT prophylaxis - mechanical - GI prophylaxis - not indicated - Nutrition - regular diet - Collins catheter - not indicated CODE STATUS - full code Admission justification - This patient will be admitted for inpatient services and is medically appropriate meeting medical necessity for inpatient admission as outlined in my documentation. I reasonably expect the patient will require inpatient services that span a period time over 2 midnights. I reasonably expect this patient to be discharged or transferred within 96 hours after admission to the [facility]. Disposition - anticipate discharge home after the hospital stay Primary care physician - Dr. Shana Abraham M.D.
[2017-03-27] MEDS ORDERED: Morphine 2 MG/ML Syringe IVPUSH PRN (11:09)
[2017-03-27] MEDS ORDERED: Benzonatate 100 MG Cap PO PRN (11:09)
[2017-03-27] MEDS ORDERED: guaiFENesin/Dextromethorphan 100-10 MG/5 ML Soln 10 ML Cup PO PRN (11:09)
[2017-03-27] MEDS ORDERED: Acetaminophen 325 MG Tab PO PRN (11:09)
[2017-03-27] MEDS ORDERED: Levalbuterol HCl 1.25 MG/3 ML Neb NEB PRN (11:09)
[2017-03-27] MEDS ORDERED: Ondansetron 4 MG Tab.DIS PO PRN (11:09)
[2017-03-27] MEDS ORDERED: Polyethylene Glycol 3350 Powder 17 GM Packet PO PRN (11:09)
[2017-03-27] MEDS ORDERED: LORazepam 2 MG/ML MDV IVPUSH PRN (11:09)
[2017-03-27] MEDS: Sodium Chloride 0.9% 1,000 ML IV SCH ×2 (11:38→21:45)
[2017-03-27] MEDS: Metoprolol Tartrate 50 MG Tab PO SCH ×2 (12:14→20:23)
[2017-03-27] MEDS: Doxycycline 100 MG in Sodium Chloride 0.9% 100 ML IV SCH (12:14)
[2017-03-27] MEDS: methylPREDNISolone Sodium Succinate 125 MG/2 ML SDV IVPUSH SCH ×2 (13:51→20:14)
[2017-03-27] MEDS: Albuterol/Ipratropium 3.0-0.5 MG/3 ML Neb Soln NEB SCH ×2 (14:56→20:30)
[2017-03-27] MEDS ORDERED: Sodium Chloride 0.9% 500 ML IV SCH (16:00)
[2017-03-27] MEDS ORDERED: Albuterol/Ipratropium 3.0-0.5 MG/3 ML Neb Soln NEB SCH (16:00)
[2017-03-27] MEDS: Azelastine Nasal Soln 30 ML Spray Bottle NASBOTH SCH (20:19)
[2017-03-27] MEDS: Formoterol/Mometasone 200-5 MCG 8.8 GM Inhaler IH SCH (20:30)
[2017-03-27] MEDS ORDERED: Formoterol/Mometasone 200-5 MCG 8.8 GM Inhaler IH SCH (21:00)
[2017-03-28] MEDS: Doxycycline 100 MG in Sodium Chloride 0.9% 100 ML IV SCH (01:00)
[2017-03-28] MEDS: methylPREDNISolone Sodium Succinate 125 MG/2 ML SDV IVPUSH SCH ×2 (02:26→07:30)
[2017-03-28] MEDS: Sodium Chloride 0.9% 1,000 ML IV SCH (06:59)
[2017-03-28] MEDS ORDERED: Tiotropium Inhaler 18 MCG Inhalation Powder Cap Kit of 5 INH SCH ×2 (07:00→09:00)
[2017-03-28] MEDS: Albuterol/Ipratropium 3.0-0.5 MG/3 ML Neb Soln NEB SCH ×2 (07:21→10:39)
[2017-03-28] MEDS: Formoterol/Mometasone 200-5 MCG 8.8 GM Inhaler IH SCH (07:21)
[2017-03-28] MEDS ORDERED: Pantoprazole 40 MG Tab.CR PO SCH (07:30)
[2017-03-28] MEDS: Metoprolol Tartrate 50 MG Tab PO SCH (08:16)
[2017-03-28] MEDS: Azelastine Nasal Soln 30 ML Spray Bottle NASBOTH SCH (08:17)
[2017-03-28] MEDS ORDERED: Isosorbide Mononitrate 30 MG Tab.ER PO SCH (09:00)
[2017-03-28] MEDS ORDERED: NIACIN 500 MG PO SCH (09:00)
[2017-03-28] MEDS ORDERED: Niacin 500 MG Cap.ER PO SCH ×2 (09:00→21:00)
[2017-03-28] MEDS ORDERED: Aspirin 81 MG Tab.Chew PO SCH (09:00)
--- NOTE | 2017-03-28 10:01 | PCM.DCSUM1 ---
Discharge Summary - Hospital Course Brief History: 86-year-old male with history of COPD and lung cancer who presented with acute onset of shortness of breath. He was admitted for management of acute bronchitis and COPD exacerbation. - Discharge Data Discharge Date: 03/28/17 Discharge Disposition: Home, Self-Care 01 Condition: Good - Discharge Diagnosis/Problem(s) (1) Acute bronchitis SNOMED Code(s): 92753380 ICD Code: J20.9 - ACUTE BRONCHITIS, UNSPECIFIED Status: Acute Current Visit: No Qualifiers: Bronchitis organism: unspecified organism Qualified Code(s): J20.9 - Acute bronchitis, unspecified (2) COPD with exacerbation SNOMED Code(s): 860154877 ICD Code: J44.1 - CHRONIC OBSTRUCTIVE PULMONARY DISEASE W (ACUTE) EXACERBATION Status: Acute Current Visit: Yes (3) Cancer of lung SNOMED Code(s): 118636592 ICD Code: C34.90 - MALIGNANT NEOPLASM OF UNSP PART OF UNSP BRONCHUS OR LUNG Status: Chronic Current Visit: No Qualifiers: Laterality: unspecified laterality Lung location: unspecified part of lung Qualified Code(s): C34.90 - Malignant neoplasm of unspecified part of unspecified bronchus or lung (4) Coronary artery disease SNOMED Code(s): 84755335 ICD Code: I25.10 - ATHSCL HEART DISEASE OF [place] CORONARY ARTERY W/O ANG PCTRS Status: Acute Current Visit: Yes Qualifiers: Coronary Disease-Associated Artery/Lesion type: [place] artery [place] vs. transplanted heart: [place] heart Associated angina: without angina Qualified Code(s): I25.10 - Atherosclerotic heart disease of [place] coronary artery without angina pectoris - Patient Summary/Data Labs Pending at D/C: Final results of sputum culture, growing normal respiratory cesar at the time of discharge Hospital Course: Daron presented to the emergency room with respiratory distress after acute onset shortness of breath. Workup in the emergency room was reassuring as far as laboratory studies and chest x-ray but he had obvious respiratory distress and did require noninvasive ventilation in the emergency room. He was admitted to the intensive care unit with a presumed diagnosis of bronchitis and a COPD exacerbation. Empirically received antibiotics with ceftriaxone and doxycycline as well as IV steroids. He did require noninvasive ventilation overnight with the morning after discharge he is off supplemental oxygen and his saturations remained in the mid 90s. He has been up and walking around without desaturation. His wheezing has essentially resolved at this point. He has improved dramatically and much more quickly than I expected. I do believe that he is safe for outpatient management at this time with his rapid improvement. He is interested in going home today as well. He will be on doxycycline for 5 days and he will be on prednisone for 3 more days. During the hospital stay he was also noted to have significant sinus tachycardia and this has been noted on several hospital stays. He has a presumed diagnosis of coronary artery disease with an abnormal stress test. This is currently being managed medically. I elected to switch him from the diltiazem over to metoprolol to help with medical management of coronary artery disease. He has responded well to and tolerated this medication quite well during the hospital stay. - Patient Instructions Diet: Heart Healthy Diet Activity: As Tolerated Driving: May Drive Today Showering/Bathing: May Shower Notify Provider of: Fever, Increased Pain, Nausea and/or Vomiting Other/Special Instructions: 1. You were in the hospital for management of acute bronchitis with an acute exacerbation of COPD. I am suspicious this was caused by either irritation from the smoke or possibly a bacterial bronchitis. I recommend 5 additional days of antibiotic therapy with doxycycline. You will take this twice daily with food to avoid stomach upset. I also recommend prednisone 40 mg daily for the next 3 days. You will take this once daily in the morning with food to avoid stomach upset. 2. Stop taking diltiazem. I recommend that we replace this medication with metoprolol 50 mg tablets. The metoprolol will help to slow down your heart and reduce the oxygen and nutrient demand from the heart to make it more efficient. This will help with the medical management of your presumed coronary artery disease discovered after the abnormal stress test. You should take metoprolol twice daily in the morning in the evening. 3. Continue your other medications as previously prescribed. 4. Seek medical attention if you develop fever greater than 101, have sudden worsening of your shortness of breath or if you develop chest pain/tightness. - Discharge Plan Prescriptions/Med Rec: Doxycycline Hyclate 100 mg PO BID #10 capsule Metoprolol Tartrate [Lopressor] 50 mg PO BID #60 tablet predniSONE [Prednisone] 40 mg PO DAILY #6 tablet Home Medications: Home Meds Fluticasone Propionate [Flonase] 2 spray NASBOTH BID 05/01/16 [History] Aspirin [Children's Aspirin] 81 mg PO WEEKLY 09/18/16 [History] Tiotropium [Spiriva HandiHaler] 18 mcg INH DAILY 12/26/16 [History] Albuterol [Proventil Neb Soln] 1 dose INH Q6H PRN 02/24/17 [History] Albuterol Sulfate [Proair Hfa] 1 puff INH QID PRN 03/06/17 [History] Mometasone/Formoterol [Dulera 200-5 MCG] 2 inh INH BID 03/06/17 [History] Niacin [Niacin ER] 500 mg PO DAILY 03/06/17 [History] Azelastine [Astelin Nasal Soln] 2 puff NASBOTH BID 03/07/17 [History] Isosorbide Mononitrate [Imdur] 30 mg PO DAILY 03/27/17 [History] predniSONE [Prednisone] 5 mg PO DAILY 03/27/17 [History] Doxycycline Hyclate 100 mg PO BID #10 capsule 03/28/17 [Rx] Metoprolol Tartrate [Lopressor] 50 mg PO BID #60 tablet 03/28/17 [Rx] predniSONE [Prednisone] 40 mg PO DAILY #6 tablet 03/28/17 [Rx] Patient Handouts: Metoprolol tablets, Doxycycline tablets or capsules, Acute Bronchitis Referrals: Jorge Luis Saldana MD [Primary Care Provider] - (f/u as needed if symptoms do not continue to get better ) - Discharge Summary/Plan Comment DC Time >30 min.: No (25) - Patient Data Vitals - Most Recent: Last Vital Signs Temp 36.6 C 03/28/17 07:54 Pulse 100 03/28/17 08:16 Resp 17 03/28/17 07:54 BP 180/92 H 03/28/17 08:17 Pulse Ox 97 03/28/17 07:54 Weight - Most Recent: 61.689 kg I&O - Last 24 hours: Intake & Output 03/27/17 03/28/17 03/28/17 22:59 06:59 14:59 Intake Total 1705 1433 Output Total 180 525 200 Balance 1525 908 -200 Lab Results - Last 24 hrs: Laboratory Results - last 24 hr 03/28/17 03/28/17 Range/Units 05:08 05:08 WBC 10.2 (4.5-11.0) K/uL RBC 3.48 L (4.30-5.90) M/uL Hgb 9.8 L (12.0-15.0) g/dL Hct 30.5 L (40.0-54.0) % MCV 88 (80-98) fL MCH 28 (27-31) pg MCHC 32 (32-36) % Plt Count 288 (150-400) K/uL Sodium 140 (140-148) mmol/L Potassium 3.9 (3.6-5.2) mmol/L Chloride 108 (100-108) mmol/L Carbon Dioxide 24 (21-32) mmol/L Anion Gap 8.5 (5.0-14.0) mmol/L BUN 17 (7-18) mg/dL Creatinine 0.9 (0.8-1.3) mg/dL Est Cr Clr Drug Dosing 53.31 mL/min Estimated GFR (MDRD) > 60 (>60) Glucose 138 H (74-106) mg/dL Calcium 8.4 L (8.5-10.1) mg/dL C-Reactive Protein 2.52 H (0.0-0.3) mg/dL TANYA Results - Last 24 hrs: Microbiology 03/27/17 11:16 Gram Stain - Final Sputum - Expectorated Respiratory Culture - Preliminary NORMAL RESPIRATORY CESAR 1 DAY Med Orders - Current: Current Medications Acetaminophen (Tylenol) 650 mg PO Q4H PRN PRN Reason: Pain (Mild 1-3)/fever Albuterol/Ipratropium (Duoneb 3.0-0.5 Mg/3 Ml) 3 ml NEB QIDRT [facility] Last Admin: 03/28/17 07:21 Dose: 3 ml Aspirin (Aspirin) 81 mg PO DAILY [facility] Last Admin: 03/28/17 08:16 Dose: 81 mg Azelastine HCl (Astelin Nasal Soln) 0 ml NASBOTH BID [facility] Last Admin: 03/28/17 08:17 Dose: 2 spray Benzonatate (Tessalon Perles) 100 mg PO TID PRN PRN Reason: Cough Guaifenesin/Dextromethorphan (Robitussin Dm) 10 ml PO Q4H PRN PRN Reason: Cough Last Admin: 03/27/17 18:13 Dose: 10 ml Ceftriaxone Sodium 2 gm/ (Sodium Chloride) 50 mls @ 100 mls/hr IV Q24H [facility] Last Admin: 03/27/17 11:17 Dose: 100 mls/hr Doxycycline Hyclate 100 mg/ (Sodium Chloride) 100 mls @ 100 mls/hr IV Q12H [facility] Last Admin: 03/28/17 01:00 Dose: 100 mls/hr Sodium Chloride (Normal Saline) 1,000 mls @ 125 mls/hr IV ASDIRECTED [facility] Last Admin: 03/28/17 06:59 Dose: 125 mls/hr Isosorbide Mononitrate (Imdur) 30 mg PO DAILY [facility] Last Admin: 03/28/17 08:17 Dose: 30 mg Levalbuterol HCl (Xopenex) 1.25 mg NEB Q4H PRN PRN Reason: Shortness of Breath Lorazepam (Ativan) 0.5 - 1 mg IVPUSH Q4H PRN PRN Reason: Anxiety Methylprednisolone Sodium Succinate (Solu-Medrol) 62.5 mg IVPUSH Q6H [facility] Last Admin: 03/28/17 07:30 Dose: 62.5 mg Metoprolol Tartrate (Lopressor) 50 mg PO BID [facility] Last Admin: 03/28/17 08:16 Dose: 50 mg Mometasone Furoate/Formoterol Fumar (Dulera 200-5 Mcg) 2 puff IH BIDRT [facility] Last Admin: 03/28/17 07:21 Dose: 2 puff Morphine Sulfate (Morphine) 2 - 4 mg IVPUSH Q2H PRN PRN Reason: Pain (severe 7-10) Niacin (Niacin) 500 mg PO BEDTIME [facility] Ondansetron HCl (Zofran Odt) 4 mg PO Q6H PRN PRN Reason: Nausea able to take PO Pantoprazole Sodium (Protonix) 40 mg PO ACBREAKFAST [facility] Last Admin: 03/28/17 07:30 Dose: 40 mg Polyethylene Glycol (Miralax) 17 gm PO DAILY PRN PRN Reason: Constipation Senna/Docusate Sodium (Senna Plus) 1 tab PO BID PRN PRN Reason: Constipation Tiotropium [place] (Spiriva Handihaler) 18 mcg INH DAILYRT [facility] Last Admin: 03/28/17 07:21 Dose: 1 cap Discontinued Medications Albuterol/Ipratropium (Duoneb 3.0-0.5 Mg/3 Ml) 3 ml NEB ONETIME ONE Stop: 03/27/17 08:11 Last Admin: 03/27/17 12:06 Dose: Not Given Sodium Chloride (Normal Saline) 500 mls @ 500 mls/hr IV ASDIRECTED [facility] Stop: 03/27/17 17:01 Last Admin: 03/27/17 15:54 Dose: 500 mls/hr Levalbuterol HCl (Xopenex) 1.25 mg NEB ONETIME ONE Stop: 03/27/17 08:38 Last Admin: 03/27/17 12:06 Dose: Not Given Methylprednisolone Sodium Succinate (Solu-Medrol) 125 mg IVPUSH ONETIME ONE Stop: 03/27/17 08:10 Last Admin: 03/27/17 12:06 Dose: Not Given Niacin (Niacin) 500 mg PO DAILY [facility] Last Admin: 03/27/17 20:24 Dose: 500 mg Sodium Chloride (Sodium Chloride 0.9%) 3 ml INH ONETIME ONE Stop: 03/27/17 08:46 Last Admin: 03/27/17 12:06 Dose: Not Given *Q Meaningful Use (DIS) - VTE *Q VTE Criteria *Q: - Stroke *Q Stroke Criteria *Q: - AMI *Q AMI Criteria *Q:
[2017-03-28 10:28] VITALS: BP 169/70
[2017-03-28] MEDS ORDERED: predniSONE 20 MG Tab PO ONE (10:45)
--- NOTE | 2017-03-29 09:00 | CR ---
Chest 1V Frontal HISTORY: short of breath COMPARISON: 03/06/2017 FINDINGS: Portable chest, 0825 hours. Heart size appears borderline enlarged. There is no vascular redistribution. Questionable early infil trate right upper lobe. Remainder the chest is clear. No pleural fluid can be seen. Bony structures a re unremarkable. Left-sided central venous Port-A-Cath is noted and appears stable. IMPRESSION: Questionable early infiltrate right upper lobe. Heart size appears borderline enlarged. P ossible mild vascular redistribution could be due to the AP technique. Recommend clinical correlation for signs of early CHF or fluid overload.
== END 2017-03-28 11:00 | disposition home or self-care (01) | DRG 190 ==
LOC: JP.ED 07:58 → JP.ICU 10:31
PROVIDERS: ADMIT Internal Medicine; ATTEND Internal Medicine
DX: J44.0 Chronic obstructive pulmonary disease with (acute) lower respiratory infection (principal); J96.91 Respiratory failure, unspecified with hypoxia; C34.90 Malignant neoplasm of unspecified part of unspecified bronchus or lung; J20.9 Acute bronchitis, unspecified; J44.1 Chronic obstructive pulmonary disease with (acute) exacerbation; Z87.891 Personal history of nicotine dependence; R05 Cough; R53.1 Weakness; R06.02 Shortness of breath; Z92.3 Personal history of irradiation; M19.90 Unspecified osteoarthritis, unspecified site; E78.00 Pure hypercholesterolemia, unspecified; H54.7 Unspecified visual loss; H91.90 Unspecified hearing loss, unspecified ear; Z79.82 Long term (current) use of aspirin; Z79.52 Long term (current) use of systemic steroids; Z88.1 Allergy status to other antibiotic agents; Z88.0 Allergy status to penicillin; Z88.7 Allergy status to serum and vaccine; Z88.8 Allergy status to other drugs, medicaments and biological substances; I25.10 Atherosclerotic heart disease of native coronary artery without angina pectoris; J30.9 Allergic rhinitis, unspecified
CPT/HCPCS: 36415; 71010 ×2; 80048; 84484; 85025; 94660; 99285; J2930; J7620; 85027; 86140; 87070; 87205; 94640; 94640-76; 96374; 99284; A9270-GY; J0696; J7030; J7040; J7050; J7612

== ENCOUNTER 2017-04-22 16:35 | Inpatient (IN) | payer MEDICARE, OTHER ==
--- NOTE | 2017-04-22 17:55 | EDM.PDOC ---
ED HPI GENERAL MEDICAL PROBLEM - General Chief Complaint: Respiratory Problem Stated Complaint: PNEUMONIA Time Seen by Provider: 04/22/17 17:10 Source of Information: Reports: Patient, Family History Limitations: Reports: No Limitations - History of Present Illness INITIAL COMMENTS - FREE TEXT/NARRATIVE: 86-year-old male with COPD and metastatic cancer who was also diagnosed with pneumonia 2 days ago in the clinic feels he is failing outpatient treatment with antibiotics. He had a fever in the clinic 2 days ago, that has improved but his weakness has worsened, his activity tolerance is almost gone and he needs help just getting in and out of a chair. He has no appetite and is not taking anything oral. He is accompanied by his daughter, who wants him to get strong enough to travel to [place] so she can take care of him and his further remaining months. Onset: Gradual Severity: Moderate Worsens with: Reports: Other (Any activity causes shortness of breath and weakness) Associated Symptoms: Reports: Fever/Chills (Fever 2 days ago, that seems to have broken) - Related Data Allergies Allergy/AdvReac Type Severity Reaction Status Date / Time amoxicillin Allergy Rash Verified 04/22/17 20:39 Penicillins Allergy Rash Verified 04/22/17 20:39 colesevelam AdvReac Stomach Verified 04/22/17 20:39 Upset influenza virus vaccine, AdvReac Other Verified 04/22/17 20:39 specific piroxicam [From Feldene] AdvReac Nausea and Verified 04/22/17 20:39 Vomiting [place]-Smf-Bvb Reductase AdvReac Muscle Verified 04/22/17 20:39 Inhibitor Aches Home Meds: Home Meds Fluticasone Propionate [Flonase] 2 spray NASBOTH BID 05/01/16 [History] Aspirin [Children's Aspirin] 81 mg PO WEEKLY 09/18/16 [History] Tiotropium [Spiriva HandiHaler] 18 mcg INH DAILY 12/26/16 [History] Albuterol Sulfate [Proair Hfa] 1 puff INH QID PRN 03/06/17 [History] Mometasone/Formoterol [Dulera 200-5 MCG] 2 inh INH BID 03/06/17 [History] Niacin [Niacin ER] 500 mg PO DAILY 03/06/17 [History] Azelastine [Astelin Nasal Soln] 2 puff NASBOTH BID 03/07/17 [History] Isosorbide Mononitrate [Imdur] 30 mg PO DAILY 03/27/17 [History] Albuterol [Proventil Neb Soln] 1 dose INH Q6H PRN #120 neb 03/28/17 [Rx] Doxycycline Hyclate 100 mg PO BID #10 capsule 03/28/17 [Rx] Metoprolol Tartrate [Lopressor] 50 mg PO BID #60 tablet 03/28/17 [Rx] Levalbuterol HCl [Xopenex Concentrate] 1 inh INH QID 04/22/17 [History] Levofloxacin [Levaquin] 750 mg PO DAILY 04/22/17 [History] metroNIDAZOLE [Flagyl] 50 mg PO BID 04/22/17 [History] predniSONE [Prednisone] 20 mg PO DAILY 04/22/17 [History] Past Medical History HEENT History: Reports: Allergic Rhinitis, Cataract, Hard of Hearing, Impaired Vision Cardiovascular History: Reports: High Cholesterol Respiratory History: Reports: Asthma, COPD, Other (See Below) Other Respiratory History: lung cancer Gastrointestinal History: Reports: Hemorrhoids Genitourinary History: Reports: None, Other (See Below) Other Genitourinary History: prostate surgery Musculoskeletal History: Reports: Arthritis Oncologic (Cancer) History: Reports: Lung, Other (See Below) Other Oncologic History: port a cath placed on right side flushed last 1-2 wekks ago Dermatologic History: Reports: Eczema - Infectious Disease History Infectious Disease History: Reports: Chicken Pox, Measles, Mumps - Past Surgical History Respiratory Surgical History: Reports: Lung Biopsies GI Surgical History: Reports: Colonoscopy, Other (See Below) Other GI Surgeries/Procedures: hemorrhoidectomy Social & Family History - Family History Family Medical History: Noncontributory - Tobacco Use Smoking Status *Q: Unknown Ever Smoked Years of Tobacco use: 65 Packs/Tins Daily: 0.5 Used Tobacco, but Quit: Yes Month Tobacco Last Used: May Second Hand Smoke Exposure: No - Caffeine Use Caffeine Use: Reports: Coffee Caffeine Use Comment: decaf cup a day - Alcohol Use Days Per Week of Alcohol Use: 7 Number of Drinks Per Day: 2 Total Drinks Per Week: 14 - Recreational Drug Use Recreational Drug Use: No ED ROS GENERAL - Review of Systems Review Of Systems: See Below Constitutional: Reports: Fever, Chills (2 days ago), Malaise, Weakness, Fatigue HEENT: Denies: Throat Pain Respiratory: Reports: Shortness of Breath, Cough Cardiovascular: Denies: Chest Pain Endocrine: Reports: Fatigue GI/Abdominal: Reports: Decreased Appetite. Denies: Vomiting : Reports: Other (Decrease urinary frequency) Skin: Reports: Pallor. Denies: Bruising Neurological: Denies: Headache ED EXAM, GENERAL - Physical Exam Exam: See Below Exam Limited By: No Limitations General Appearance: Alert, No Apparent Distress (Patient is in no distress but looks extremely weak, tired, depressed) Throat/Mouth: Normal Inspection (Normal mucosal hydration is present) Head: Atraumatic Respiratory/Chest: No Respiratory Distress, Other (Basilar rales are heard bilaterally, also a few rales in the left upper lobe) Cardiovascular: Regular Rate, Rhythm, Tachycardia (Mild tachycardia is present) . No: Extra Beats GI/Abdominal: Soft, Non-Tender Extremities: No: Pedal Edema Neurological: Alert, Oriented, Other (Diffuse symmetric weakness is present of the extremities) Skin Exam: Warm, Pallor EKG INTERPRETATION EKG Date: 04/22/17 Rhythm: NSR Rate (Beats/Min): 108 QRS: Normal (Avoid running some tenderness and) ST-T: Normal Course - Vital Signs Last Recorded V/S: Last Vital Signs Temp 96.6 F 04/23/17 07:32 Pulse 84 04/23/17 07:32 Resp 18 04/23/17 07:32 BP 153/70 H 04/23/17 07:32 Pulse Ox 93 L 04/23/17 07:41 - Orders/Labs/Meds Orders: Active Orders 24 hr Category Date Time Status BIPAP [RT BiPAP/CPAP] [RC] ASDIRECTED Care 04/22/17 19:14 Active Chest 1V Frontal [CR] Stat Exams 04/22/17 17:22 Taken EKG 12 Lead [EK] Routine Ther 04/22/17 17:28 Stop Req Medication Orders Acetaminophen (Tylenol) 650 mg PO Q4H PRN PRN Reason: Pain (Mild 1-3)/fever Albuterol (Proventil Neb Soln) 2.5 mg NEB Q4H PRN PRN Reason: Shortness Of Breath/wheezing Albuterol/Ipratropium (Duoneb 3.0-0.5 Mg/3 Ml) 3 ml NEB QID PRN PRN Reason: Shortness Of Breath/wheezing Aspirin (Aspirin) 81 mg PO We@0900 [facility] Guaifenesin/Codeine Phosphate (Robitussin Ac) 10 ml PO Q4H PRN PRN Reason: Cough Ceftriaxone Sodium 2 gm/ (Sodium Chloride) 50 mls @ 100 mls/hr IV Q24H [facility] Last Admin: 04/22/17 21:12 Dose: 100 mls/hr Doxycycline Hyclate 100 mg/ (Sodium Chloride) 100 mls @ 100 mls/hr IV Q12H [facility] Last Admin: 04/22/17 23:12 Dose: 100 mls/hr Sodium Chloride (Normal Saline) 1,000 mls @ 100 mls/hr IV ASDIRECTED [facility] Last Admin: 04/23/17 07:33 Dose: 100 mls/hr Infusion: 04/23/17 07:15 Dose: 100 mls/hr Admin: 04/22/17 21:15 Dose: 100 mls/hr Isosorbide Mononitrate (Imdur) 30 mg PO DAILY@0730 [facility] Lorazepam (Ativan) 1 mg IV Q4H PRN PRN Reason: Anxiety Methylprednisolone Sodium Succinate (Solu-Medrol) 125 mg IVPUSH Q8H [facility] Metoprolol Tartrate (Lopressor) 50 mg PO BID [facility] Last Admin: 04/22/17 21:13 Dose: 50 mg Morphine Sulfate (Morphine) 2 mg IVPUSH Q2H PRN PRN Reason: Pain (severe 7-10) Niacin (Niacin) 500 mg PO DAILY [facility] Ondansetron HCl (Zofran Odt) 4 mg PO Q6H PRN PRN Reason: Nausea able to take PO Ondansetron HCl (Zofran) 4 mg IV Q4H PRN PRN Reason: Nausea/Vomiting Oxycodone HCl (Oxycodone) 5 mg PO Q4H PRN PRN Reason: Pain (moderate 4-6) Labs: Laboratory Tests 04/22/17 04/22/17 04/22/17 Range/Units 17:32 17:32 18:16 WBC 8.2 (4.5-11.0) K/uL RBC 4.08 L (4.30-5.90) M/uL Hgb 11.5 L (12.0-15.0) g/dL Hct 34.9 L (40.0-54.0) % MCV 86 (80-98) fL MCH 28 (27-31) pg MCHC 33 (32-36) % Plt Count 343 (150-400) K/uL Add Manual Diff Yes Neutrophils % (Manual) 88 H (36-66) % Band Neutrophils % 5 (5-11) % Lymphocytes % (Manual) 2 L (24-44) % Monocytes % (Manual) 5 (2-6) % Puncture Site ABG pH (7.350-7.450) ABG pCO2 (35.0-42.0) mmHg ABG pO2 (75.0-100.0) mmHg ABG HCO3 (22.0-26.0) mmol/L ABG Total CO2 (23.0-27.0) mmol/L ABG O2 Saturation (95.0-98.0) % ABG O2 Content (15.0-23.0) %vol ABG Base Excess mm/L ABG Hemoglobin (13.5-18.0) g/dL ABG Oxyhemoglobin % ABG Carboxyhemoglobin (0.0-1.6) % ABG Methemoglobin % Ever Test O2 Delivery Device Oxygen Flow Rate L Sodium 140 (140-148) mmol/L Potassium 3.7 (3.6-5.2) mmol/L Chloride 101 (100-108) mmol/L Carbon Dioxide 30 (21-32) mmol/L Anion Gap 8.9 (5.0-14.0) mmol/L BUN 17 (7-18) mg/dL Creatinine 1.2 (0.8-1.3) mg/dL Est Cr Clr Drug Dosing 39.69 mL/min Estimated GFR (MDRD) 58 L (>60) Glucose 143 H (74-106) mg/dL Calcium 8.8 (8.5-10.1) mg/dL Urine Color Yellow Urine Appearance Clear Urine pH 6.0 (4.5-8.0) Ur Specific [place] 1.015 (1.008-1.030) Urine Protein Negative (NEGATIVE) mg/dL Urine Glucose (UA) Normal (NEGATIVE) mg/dL Urine Ketones Negative (NEGATIVE) mg/dL Urine Occult Blood Moderate (NEGATIVE) Urine Nitrite Negative (NEGAITVE) Urine Bilirubin Negative (NEGATIVE) Urine Urobilinogen Normal (NORMAL) mg/dL Ur Leukocyte Esterase Moderate (NEGATIVE) Urine RBC 10-20 H (0-5) Urine WBC 10-20 H (0-5) Ur Epithelial Cells Few Amorphous Sediment Not seen Urine Bacteria Moderate Urine Mucus Few 04/22/17 Range/Units 19:07 WBC (4.5-11.0) K/uL RBC (4.30-5.90) M/uL Hgb (12.0-15.0) g/dL Hct (40.0-54.0) % MCV (80-98) fL MCH (27-31) pg MCHC (32-36) % Plt Count (150-400) K/uL Add Manual Diff Neutrophils % (Manual) (36-66) % Band Neutrophils % (5-11) % Lymphocytes % (Manual) (24-44) % Monocytes % (Manual) (2-6) % Puncture Site Rt.radial ABG pH 7.495 H (7.350-7.450) ABG pCO2 38.2 (35.0-42.0) mmHg ABG pO2 63.0 L (75.0-100.0) mmHg ABG HCO3 29.2 H (22.0-26.0) mmol/L ABG Total CO2 26.1 (23.0-27.0) mmol/L ABG O2 Saturation 92.6 L (95.0-98.0) % ABG O2 Content 14.9 L (15.0-23.0) %vol ABG Base Excess 5.9 mm/L ABG Hemoglobin 11.6 L (13.5-18.0) g/dL ABG Oxyhemoglobin 91.1 % ABG Carboxyhemoglobin 0.9 (0.0-1.6) % ABG Methemoglobin 0.7 % Ever Test Passed O2 Delivery Device Nasal cannula Oxygen Flow Rate 2 L Sodium (140-148) mmol/L Potassium (3.6-5.2) mmol/L Chloride (100-108) mmol/L Carbon Dioxide (21-32) mmol/L Anion Gap (5.0-14.0) mmol/L BUN (7-18) mg/dL Creatinine (0.8-1.3) mg/dL Est Cr Clr Drug Dosing mL/min Estimated GFR (MDRD) (>60) Glucose (74-106) mg/dL Calcium (8.5-10.1) mg/dL Urine Color Urine Appearance Urine pH (4.5-8.0) Ur Specific [place] (1.008-1.030) Urine Protein (NEGATIVE) mg/dL Urine Glucose (UA) (NEGATIVE) mg/dL Urine Ketones (NEGATIVE) mg/dL Urine Occult Blood (NEGATIVE) Urine Nitrite (NEGAITVE) Urine Bilirubin (NEGATIVE) Urine Urobilinogen (NORMAL) mg/dL Ur Leukocyte Esterase (NEGATIVE) Urine RBC (0-5) Urine WBC (0-5) Ur Epithelial Cells Amorphous Sediment Urine Bacteria Urine Mucus Meds: Medications Generic Name Dose Route Start Last Admin Trade Name Freq PRN Reason Stop Dose Admin Acetaminophen 650 mg 04/22/17 20:08 Tylenol PO Q4H PRN Pain (Mild 1-3)/fever Albuterol 2.5 mg 04/22/17 20:08 Proventil Neb Soln NEB Q4H PRN Shortness Of Breath/wheezing Albuterol/Ipratropium 3 ml 04/22/17 20:08 Duoneb 3.0-0.5 Mg/3 Ml NEB QID PRN Shortness Of Breath/wheezing Aspirin 81 mg 04/28/17 09:00 Aspirin PO We@0900 [facility] Guaifenesin/Codeine Phosphate 10 ml 04/22/17 20:08 Robitussin Ac PO Q4H PRN Cough Ceftriaxone Sodium 2 gm/ 50 mls @ 100 mls/hr 04/22/17 20:30 04/22/17 21:12 Sodium Chloride IV 100 mls/hr Q24H [facility] Administration Doxycycline Hyclate 100 mg/ 100 mls @ 100 mls/hr 04/22/17 21:00 04/22/17 23: 12 Sodium Chloride IV 100 mls/hr Q12H [facility] Administration Sodium Chloride 1,000 mls @ 100 mls/hr 04/22/17 20:08 04/23/17 07:33 Normal Saline IV 100 mls/hr ASDIRECTED [facility] Administration Isosorbide Mononitrate 30 mg 04/23/17 07:30 Imdur PO DAILY@0730 [facility] Lorazepam 1 mg 04/22/17 20:08 Ativan IV Q4H PRN Anxiety Methylprednisolone Sodium Succinate 125 mg 04/23/17 14:00 Solu-Medrol IVPUSH Q8H [facility] Metoprolol Tartrate 50 mg 04/22/17 21:00 04/22/17 21:13 Lopressor PO 50 mg BID [facility] Administration Morphine Sulfate 2 mg 04/22/17 20:08 Morphine IVPUSH Q2H PRN Pain (severe 7-10) Niacin 500 mg 04/23/17 09:00 Niacin PO DAILY [facility] Ondansetron HCl 4 mg 04/22/17 20:08 Zofran Odt PO Q6H PRN Nausea able to take PO Ondansetron HCl 4 mg 04/22/17 20:08 Zofran IV Q4H PRN Nausea/Vomiting Oxycodone HCl 5 mg 04/22/17 20:08 Oxycodone PO Q4H PRN Pain (moderate 4-6) Discontinued Medications Generic Name Dose Route Start Last Admin Trade Name Freq PRN Reason Stop Dose Admin Methylprednisolone Sodium Succinate 125 mg 04/22/17 21:00 04/23/17 05:02 Solu-Medrol IVPUSH 125 mg Q8H [facility] Administration - Re-Assessments/Exams Free Text/Narrative Re-Assessment/Exam: 04/22/17 17:55 1 portable chest x-ray was obtained that showed what appears to be increased vascularization, some infiltrate is possible on the left side. This is similar to the findings in the clinic 2 days ago. CBC and BMP were obtained as well. 04/22/17 17:56 White count was 8200, hemoglobin 11.5. Electrolytes are remarkably normal for the patient's condition. Discussed his condition with the hospitalist service, I feel he is too weak to go home and may need some hydration and IV antibiotics with possibly some careful diuresis. Departure - Departure Time of Disposition: 19:41 Disposition: Admitted As Inpatient 68 Condition: Poor Clinical Impression: COPD with exacerbation, Weakness Metastatic cancer to lung Qualifiers: Laterality: unspecified laterality Qualified Code(s): C78.00 - Secondary malignant neoplasm of unspecified lung - Discharge Information - My Orders Last 24 Hours: My Active Orders 04/22/17 17:22 Chest 1V Frontal [CR] Stat 04/22/17 17:28 EKG 12 Lead [EK] Routine - Assessment/Plan Last 24 Hours: My Active Orders 04/22/17 17:22 Chest 1V Frontal [CR] Stat 04/22/17 17:28 EKG 12 Lead [EK] Routine
[2017-04-22] MEDS ORDERED: Albuterol 0.083% 2.5 MG/3 ML Neb Soln NEB PRN (20:08)
[2017-04-22] MEDS ORDERED: Ondansetron 4 MG/2 ML SDV IV PRN (20:08)
[2017-04-22] MEDS ORDERED: oxyCODONE 5 MG Tab PO PRN (20:08)
[2017-04-22] MEDS ORDERED: Albuterol/Ipratropium 3.0-0.5 MG/3 ML Neb Soln NEB PRN (20:08)
[2017-04-22] MEDS ORDERED: Acetaminophen 325 MG Tab PO PRN (20:08)
[2017-04-22] MEDS ORDERED: Morphine 2 MG/ML Syringe IVPUSH PRN (20:08)
[2017-04-22] MEDS ORDERED: Codeine/guaiFENesin 100mg-10 MG/5 ML Syrup 10 ML Cup PO PRN (20:08)
[2017-04-22] MEDS ORDERED: Ondansetron 4 MG Tab.DIS PO PRN (20:08)
[2017-04-22] MEDS: cefTRIAXone 2 GM in Sodium Chloride 0.9% 50 ML IV SCH (21:12)
[2017-04-22] MEDS: methylPREDNISolone Sodium Succinate 125 MG/2 ML SDV IVPUSH SCH (21:13)
[2017-04-22] MEDS: Metoprolol Tartrate 50 MG Tab PO SCH (21:13)
[2017-04-22] MEDS: Sodium Chloride 0.9% 1,000 ML IV SCH (21:15)
[2017-04-22] MEDS: Doxycycline 100 MG in Sodium Chloride 0.9% 100 ML IV SCH (23:12)
--- NOTE | 2017-04-23 00:13 | PCM.HP ---
H&P History of Present Illness - General Date of Service: 04/22/17 Admit Problem/Dx: Admission Diagnosis/Problem Admission Diagnosis/Problem Acute bronchitis with chronic obstructive pulmonary disease (COPD) Source of Information: Patient, Family (Daughter), Provider History Limitations: Reports: No Limitations - History of Present Illness Initial Comments - Free Text/Narative: 86-year-old male with COPD and metastatic cancer who was also diagnosed with pneumonia 2 days ago in the clinic feels he is failing outpatient treatment with antibiotics. He had a fever in the clinic 2 days ago, that has improved but his weakness has worsened, his activity tolerance is almost gone and he needs help just getting in and out of a chair. He has no appetite and is not taking anything oral. He is accompanied by his daughter, who wants him to get strong enough to travel to [place] so she can take care of him and his further remaining months. Onset: Gradual Severity: Moderate Worsens with: Reports: Other (Any activity causes shortness of breath and weakness) Associated Symptoms: Reports: Fever/Chills (Fever 2 days ago, that seems to have broken) 04/22/17 17:55 1 portable chest x-ray was obtained that showed what appears to be increased vascularization, some infiltrate is possible on the left side. This is similar to the findings in the clinic 2 days ago. CBC and BMP were obtained as well. 04/22/17 17:56 White count was 8200, hemoglobin 11.5. Electrolytes are remarkably normal for the patient's condition. Discussed his condition with the hospitalist service, I feel he is too weak to go home and may need some hydration and IV antibiotics with possibly some careful diuresis. Onset of Symptoms: Reports: Gradual Duration of Symptoms: Reports: Day(s):, Getting Worse Location: Reports: Chest (shortness of breath. ) Quality: Reports: Same as Previous Episode Severity: Moderate Improves with: Reports: Rest Worsens with: Reports: Movement Context: Reports: Other (current treatment for pneumonia) Associated Symptoms: Reports: Cough, Fever/Chills, Loss of Appetite, Nausea/ Vomiting, Shortness of Breath, Weakness - Related Data Allergies/Adverse Reactions: Allergies Allergy/AdvReac Type Severity Reaction Status Date / Time amoxicillin Allergy Rash Verified 04/22/17 20:39 Penicillins Allergy Rash Verified 04/22/17 20:39 colesevelam AdvReac Stomach Verified 04/22/17 20:39 Upset influenza virus vaccine, AdvReac Other Verified 04/22/17 20:39 specific piroxicam [From Feldene] AdvReac Nausea and Verified 04/22/17 20:39 Vomiting Rzolxut-Xel-Aav Reductase AdvReac Muscle Verified 04/22/17 20:39 Inhibitor Aches Home Medications: Home Meds Fluticasone Propionate [Flonase] 2 spray NASBOTH BID 05/01/16 [History] Aspirin [Children's Aspirin] 81 mg PO WEEKLY 09/18/16 [History] Tiotropium [Spiriva HandiHaler] 18 mcg INH DAILY 12/26/16 [History] Albuterol Sulfate [Proair Hfa] 1 puff INH QID PRN 03/06/17 [History] Mometasone/Formoterol [Dulera 200-5 MCG] 2 inh INH BID 03/06/17 [History] Niacin [Niacin ER] 500 mg PO DAILY 03/06/17 [History] Azelastine [Astelin Nasal Soln] 2 puff NASBOTH BID 03/07/17 [History] Isosorbide Mononitrate [Imdur] 30 mg PO DAILY 03/27/17 [History] Albuterol [Proventil Neb Soln] 1 dose INH Q6H PRN #120 neb 03/28/17 [Rx] Doxycycline Hyclate 100 mg PO BID #10 capsule 03/28/17 [Rx] Metoprolol Tartrate [Lopressor] 50 mg PO BID #60 tablet 03/28/17 [Rx] Levalbuterol HCl [Xopenex Concentrate] 1 inh INH QID 04/22/17 [History] Levofloxacin [Levaquin] 750 mg PO DAILY 04/22/17 [History] metroNIDAZOLE [Flagyl] 50 mg PO BID 04/22/17 [History] predniSONE [Prednisone] 20 mg PO DAILY 04/22/17 [History] Past Medical History HEENT History: Reports: Allergic Rhinitis, Cataract, Hard of Hearing, Impaired Vision Cardiovascular History: Reports: High Cholesterol Respiratory History: Reports: Asthma, COPD, Other (See Below) Other Respiratory History: lung cancer Gastrointestinal History: Reports: Hemorrhoids Genitourinary History: Reports: Prostate Disorder, Other (See Below) Other Genitourinary History: prostate surgery Musculoskeletal History: Reports: Arthritis Psychiatric History: Reports: Depression Oncologic (Cancer) History: Reports: Lung, Other (See Below) Other Oncologic History: port a cath placed on right side Dermatologic History: Reports: Eczema - Infectious Disease History Infectious Disease History: Reports: Chicken Pox, Measles, Mumps - Past Surgical History HEENT Surgical History: Reports: None Cardiovascular Surgical History: Reports: None Respiratory Surgical History: Reports: Lung Biopsies GI Surgical History: Reports: Colonoscopy, Other (See Below) Other GI Surgeries/Procedures: hemorrhoidectomy Musculoskeletal Surgical History: Reports: None Oncologic Surgical History: Reports: None Dermatological Surgical History: Reports: None Social & Family History - Family History Family Medical History: Noncontributory - Tobacco Use Smoking Status *Q: Former Smoker Years of Tobacco use: 70 Packs/Tins Daily: 0.2 Used Tobacco, but Quit: Yes Month Tobacco Last Used: 03/2016 Second Hand Smoke Exposure: No - Caffeine Use Caffeine Use: Reports: Coffee Caffeine Use Comment: 0.5 cups/day - Alcohol Use Days Per Week of Alcohol Use: 7 Number of Drinks Per Day: 2 Total Drinks Per Week: 14 Date of Last Drink: 04/21/17 Time of Last Drink: 17:00 - Recreational Drug Use Recreational Drug Use: No H&P Review of Systems - Review of Systems: Review Of Systems: See Below General: Reports: Fever, Chills, Malaise, Weakness, Decreased Appetite HEENT: Reports: No Symptoms Pulmonary: Reports: Shortness of Breath, Cough Cardiovascular: Reports: No Symptoms, Edema Gastrointestinal: Reports: Diarrhea, Nausea, Vomiting (dry heaves earlier today) Genitourinary: Reports: No Symptoms Musculoskeletal: Reports: Muscle Pain Skin: Reports: No Symptoms Psychiatric: Reports: No Symptoms Neurological: Reports: No Symptoms Hematologic/Lymphatic: Reports: No Symptoms Immunologic: Reports: No Symptoms Exam - Exam Exam: See Below - Vital Signs Vital Signs: Last Vital Signs Temp 36.6 C 04/22/17 22:52 Pulse 83 04/22/17 22:52 Resp 18 04/22/17 22:52 BP 148/62 H 04/22/17 22:52 Pulse Ox 96 04/22/17 22:52 Weight: 58.513 kg - Exam Quality Assessment: Supplemental Oxygen General: Alert, Oriented, Cooperative HEENT: PERRLA, Conjunctiva Clear, EACs Clear, EOMI, Hearing Intact (hearing aides inplace), Mucosa Moist & [place], Nares Patent, Posterior Pharynx Clear, Pupils Equal, Pupils Reactive, TMs Clear Neck: Supple, Trachea Midline Lungs: Decreased Breath Sounds, Rhonchi, Wheezing Cardiovascular: Regular Rate, Regular Rhythm, Normal S1, Normal S2 GI/Abdominal Exam: Normal Bowel Sounds, Soft, Non-Tender, No Organomegaly (Male) Exam: Deferred Rectal (Males) Exam: Deferred Extremities: Normal Range of Motion, Normal Capillary Refill, Pallor Skin: Other (abrasion noted to anterior left lower leg with scab. minor, no signs of localized infection) Neurological: Reflexes Equal Bilateral, Strength Equal Bilateral Neuro Extensive - Mental Status: Alert, Oriented x3, Normal Mood/Affect Psychiatric: Alert, Normal Affect, Normal Mood Physical Exam Comments:: - Physical Exam Exam: See Below Exam Limited By: No Limitations General Appearance: Alert, No Apparent Distress (Patient is in no distress but looks extremely weak, tired, depressed) Throat/Mouth: Normal Inspection (Normal mucosal hydration is present) Head: Atraumatic Respiratory/Chest: No Respiratory Distress, Other (Basilar rales are heard bilaterally, also a few rales in the left upper lobe) Cardiovascular: Regular Rate, Rhythm, Tachycardia (Mild tachycardia is present) . No: Extra Beats GI/Abdominal: Soft, Non-Tender Extremities: No: Pedal Edema Neurological: Alert, Oriented, Other (Diffuse symmetric weakness is present of the extremities) Skin Exam: Warm, Pallor - Patient Data Result Diagrams: 04/22/17 17:32 04/22/17 17:32 *Q Meaningful Use (ADM) - VTE *Q VTE Criteria *Q: - Stroke *Q Stroke Criteria *Q: - AMI *Q AMI Criteria *Q: - Problem List (1) COPD with exacerbation SNOMED Code(s): 775782667669577 ICD Code: J44.1 - CHRONIC OBSTRUCTIVE PULMONARY DISEASE W (ACUTE) EXACERBATION Status: Acute Priority: High Current Visit: Yes (2) Weakness generalized SNOMED Code(s): 02587833 ICD Code: R53.1 - WEAKNESS Status: Acute Current Visit: Yes (3) Metastatic cancer to lung Status: Chronic Current Visit: Yes Qualifiers: Laterality: unspecified laterality Qualified Code(s): C78.00 - Secondary malignant neoplasm of unspecified lung Problem List Initiated/Reviewed/Updated: Yes Orders Last 24hrs: Active Orders 24 hr Category Date Time Status Patient Status [ADT] Routine ADT 04/22/17 20:08 Active Bedrest Bedside Commode [RC] ASDIRECTED Care 04/22/17 20:08 Active Cardiac Monitoring [RC] .As Directed Care 04/22/17 20:08 Active Intake and Output [RC] QSHIFT Care 04/22/17 20:08 Active Notify Provider Vital Signs [RC] ASDIRECTED Care 04/22/17 20:08 Active Overnight Pulse Oximetry [RC] Click to Edit Care 04/22/17 20:39 Active RT Aerosol Therapy [RC] ASDIRECTED Care 04/22/17 20:08 Active Up With Assistance [RC] ASDIRECTED Care 04/22/17 20:08 Active VTE/DVT Education [RC] Per Unit Routine Care 04/22/17 20:08 Active Vital Signs [RC] Q4H Care 04/22/17 20:08 Active OT Evaluation and Treatment [CONS] Routine Cons 04/22/17 20:08 Active Regular Diet [DIET] Diet 04/22/17 Breakfast Active BASIC METABOLIC PANEL,BMP [CHEM] AM Lab 04/23/17 05:11 Ordered BLOOD GAS ARTERIAL [BG] DAILY Lab 04/23/17 05:10 Ordered CBC WITH AUTO DIFF [HEME] AM Lab 04/23/17 05:11 Ordered Acetaminophen [Tylenol] Med 04/22/17 20:08 Active 650 mg PO Q4H PRN Albuterol [Proventil Neb Soln] Med 04/22/17 20:08 Active 2.5 mg NEB Q4H PRN Albuterol/Ipratropium [DuoNeb 3.0-0.5 MG/3 ML] Med 04/22/17 20:08 Active 3 ml NEB QID PRN Aspirin Med 04/28/17 09:00 Active 81 mg PO We@0900 Codeine/guaiFENesin [Robitussin AC] Med 04/22/17 20:08 Active 10 ml PO Q4H PRN Doxycycline [Vibramycin] 100 mg Med 04/22/17 21:00 Active Sodium Chloride 0.9% [Normal Saline] 100 ml IV Q12H Isosorbide Mononitrate [Imdur] Med 04/23/17 09:00 Active 30 mg PO DAILY LORazepam [Ativan] Med 04/22/17 20:08 Active 1 mg IV Q4H PRN Metoprolol Tartrate [Lopressor] Med 04/22/17 21:00 Active 50 mg PO BID Morphine Med 04/22/17 20:08 Active 2 mg IVPUSH Q2H PRN Niacin Med 04/23/17 09:00 Active 500 mg PO DAILY Ondansetron [Zofran ODT] Med 04/22/17 20:08 Active 4 mg PO Q6H PRN Ondansetron [Zofran] Med 04/22/17 20:08 Active 4 mg IV Q4H PRN Sodium Chloride 0.9% [Normal Saline] 1,000 ml Med 04/22/17 20:08 Active IV ASDIRECTED cefTRIAXone [Rocephin] 2 gm Med 04/22/17 20:30 Active Sodium Chloride 0.9% [Normal Saline] 50 ml IV Q24H methylPREDNISolone Sod Succ [Solu-MEDROL] Med 04/22/17 21:00 Active 125 mg IVPUSH Q8H oxyCODONE Med 04/22/17 20:08 Active 5 mg PO Q4H PRN Pulse Oximetry Continuous Monitoring [OM.PC] Routine Oth 04/22/17 20:39 Ordered Sequential Compression Device [OM.PC] Per Unit Routine Oth 04/22/17 20:08 Ordered Resuscitation Status Routine Resus Stat 04/22/17 19:28 Ordered Medication Orders Acetaminophen (Tylenol) 650 mg PO Q4H PRN PRN Reason: Pain (Mild 1-3)/fever Albuterol (Proventil Neb Soln) 2.5 mg NEB Q4H PRN PRN Reason: Shortness Of Breath/wheezing Albuterol/Ipratropium (Duoneb 3.0-0.5 Mg/3 Ml) 3 ml NEB QID PRN PRN Reason: Shortness Of Breath/wheezing Aspirin (Aspirin) 81 mg PO We@0900 [facility] Guaifenesin/Codeine Phosphate (Robitussin Ac) 10 ml PO Q4H PRN PRN Reason: Cough Ceftriaxone Sodium 2 gm/ (Sodium Chloride) 50 mls @ 100 mls/hr IV Q24H [facility] Last Admin: 04/22/17 21:12 Dose: 100 mls/hr Doxycycline Hyclate 100 mg/ (Sodium Chloride) 100 mls @ 100 mls/hr IV Q12H [facility] Last Admin: 04/22/17 23:12 Dose: 100 mls/hr Sodium Chloride (Normal Saline) 1,000 mls @ 100 mls/hr IV ASDIRECTED [facility] Last Admin: 04/22/17 21:15 Dose: 100 mls/hr Isosorbide Mononitrate (Imdur) 30 mg PO DAILY [facility] Lorazepam (Ativan) 1 mg IV Q4H PRN PRN Reason: Anxiety Methylprednisolone Sodium Succinate (Solu-Medrol) 125 mg IVPUSH Q8H [facility] Last Admin: 04/22/17 21:13 Dose: 125 mg Metoprolol Tartrate (Lopressor) 50 mg PO BID [facility] Last Admin: 04/22/17 21:13 Dose: 50 mg Morphine Sulfate (Morphine) 2 mg IVPUSH Q2H PRN PRN Reason: Pain (severe 7-10) Niacin (Niacin) 500 mg PO DAILY [facility] Ondansetron HCl (Zofran Odt) 4 mg PO Q6H PRN PRN Reason: Nausea able to take PO Ondansetron HCl (Zofran) 4 mg IV Q4H PRN PRN Reason: Nausea/Vomiting Oxycodone HCl (Oxycodone) 5 mg PO Q4H PRN PRN Reason: Pain (moderate 4-6) Assessment/Plan Comment:: ASSESSMENT / PLAN -. 86-year-old male with COPD and metastatic cancer who was also diagnosed with pneumonia 2 days ago in the clinic feels he is failing outpatient treatment with antibiotics. He had a fever in the clinic 2 days ago, that has improved but his weakness has worsened, his activity tolerance is almost gone and he needs help just getting in and out of a chair. He has no appetite and is not taking anything oral. He is accompanied by his daughter, who wants him to get strong enough to travel to [place] so she can take care of him and his further remaining months. Onset: Gradual Severity: Moderate Worsens with: Reports: Other (Any activity causes shortness of breath and weakness) Associated Symptoms: Reports: Fever/Chills (Fever 2 days ago, that seems to have broken) 1 portable chest x-ray was obtained that showed what appears to be increased vascularization, some infiltrate is possible on the left side. This is similar to the findings in the clinic 2 days ago. CBC and BMP were obtained as well. White count was 8200, hemoglobin 11.5. Electrolytes are remarkably normal for the patient's condition. Discussed his condition with the hospitalist service, I feel he is too weak to go home and may need some hydration and IV antibiotics with possibly some careful diuresis. Plan Bronchitis, COPD, Lung Cancer with mets. -Admit to [address] [place] [address] for further monitoring -Bi-pap over night -IV Fluids for rehydration NS at 100 mL per hour -IV Antibiotic; Rocephin 2 gram IV every 24 hours -IV Doxy 100mg IV every 12 hours -IV Solumedrol 125mg every 8 hours -Robitussin dm 10 ml every 4 to 6 hours for cough -albuterol nebulizer every 4 hours as needed for wheezing and cough -Duo nebs every 6 hours prn -Advise to notify nurses of any chest pain or other symptoms -And a.m. labs: CBC, BMP, ABG Maintenance issues -Orders home meds: -Nutrition: regular diet -Collins catheter not indicated at this time -DVT: SCD -PPI; IV Protonix 40mg daily CODE STATUS: FULL CODE Admission status: Admit to [address] [place] [address] Admission justification. This patient will be admitted for inpatient services and is medically appropriate meeting medical necessity for inpatient admission as outlined in my documentation. I reasonably expect the patient will require inpatient services that span. Time over 2 midnights. I reasonably expect this patient to be discharged or transferred within 96 hours after admission to the critical access hospital. Disposition; home with Daughter Tere. Primary care provider: Dr. Saldana Hospitalist: Dr. Hennessy
[2017-04-23] MEDS: methylPREDNISolone Sodium Succinate 125 MG/2 ML SDV IVPUSH SCH (05:02)
[2017-04-23] MEDS: Sodium Chloride 0.9% 1,000 ML IV SCH (07:33)
[2017-04-23] MEDS: Niacin 500 MG Cap.ER PO SCH (08:24)
[2017-04-23] MEDS: Isosorbide Mononitrate 30 MG Tab.ER PO SCH (08:24)
[2017-04-23] MEDS: Metoprolol Tartrate 50 MG Tab PO SCH ×2 (08:24→20:32)
[2017-04-23] MEDS: Doxycycline 100 MG in Sodium Chloride 0.9% 100 ML IV SCH ×2 (08:28→21:42)
--- NOTE | 2017-04-23 09:07 | CR ---
Chest 1V Frontal HISTORY: Shortness of breath. COMPARISON: 03/27/2017. FINDINGS: Left sided Port-A-Cath. Slight interstitial prominence in the left perihilar region and lef t upper lobe as well as right upper lobe could represent edema or inflammatory process. Stable elevat ion right hemidiaphragm. Cardiac size is stable. No acute congestive change. Impression: 1. Increased interstitial changes bilaterally. This is more prominent on the left from the most recen t chest radiograph minimally improved in the right upper lobe from the previous study. This could be edema or could be inflammatory. Recommend continued follow-up to confirm complete resolution.
[2017-04-23] MEDS ORDERED: Sodium Chloride 0.9% 1,000 ML IV SCH (10:12)
--- NOTE | 2017-04-23 10:14 | PCM.PN ---
- General Info Date of Service: 04/23/17 Functional Status: Reports: Pain Controlled, Tolerating Diet - Review of Systems General: Reports: Weakness Pulmonary: Reports: Shortness of Breath, Cough Systems Review Comment:: No acute events overnight. He reports that he did not get quite as much relief with the noninvasive ventilation as he usually does while he is hospitalized overnight but otherwise feels okay. Still weak and still short of breath, especially with activity. Not much in the way of a cough. Not much of an appetite. No fevers. - Patient Data Vitals - Most Recent: Last Vital Signs Temp 35.9 C 04/23/17 07:32 Pulse 84 04/23/17 08:24 Resp 18 04/23/17 07:32 BP 153/70 H 04/23/17 08:24 Pulse Ox 93 L 04/23/17 07:41 Weight - Most Recent: 58.513 kg I&O - Last 24 Hours: Intake & Output 04/22/17 04/23/17 04/23/17 22:59 06:59 14:59 Intake Total 50 809 520 Output Total 200 200 250 Balance -150 609 270 Lab Results Last 24 Hours: Laboratory Results - last 24 hr 04/23/17 04/23/17 04/23/17 Range/Units 05:00 05:00 05:00 WBC 9.4 (4.5-11.0) K/uL RBC 3.84 L (4.30-5.90) M/uL Hgb 11.2 L (12.0-15.0) g/dL Hct 32.5 L (40.0-54.0) % MCV 85 (80-98) fL MCH 29 (27-31) pg MCHC 35 (32-36) % Plt Count 282 (150-400) K/uL Neut % (Auto) 96 H (36-66) % Lymph % (Auto) 2 L (24-44) % [place] % (Auto) 2 (2-6) % Eos % (Auto) 0 L (2-4) % Baso % (Auto) 0 (0-1) % Puncture Site L radial ABG pH 7.471 H (7.350-7.450) ABG pCO2 38.0 (35.0-42.0) mmHg ABG pO2 73.4 L (75.0-100.0) mmHg ABG HCO3 27.4 H (22.0-26.0) mmol/L ABG Total CO2 24.6 (23.0-27.0) mmol/L ABG O2 Saturation 95.0 (95.0-98.0) % ABG O2 Content 15.2 (15.0-23.0) %vol ABG Base Excess 4 mm/L ABG Hemoglobin 11.5 L (13.5-18.0) g/dL ABG Oxyhemoglobin 93.8 % ABG Carboxyhemoglobin 0.8 (0.0-1.6) % ABG Methemoglobin 0.5 % Ever Test Passed O2 Delivery Device Bipap Oxygen Flow Rate L Sodium 140 (140-148) mmol/L Potassium 4.3 (3.6-5.2) mmol/L Chloride 106 (100-108) mmol/L Carbon Dioxide 28 (21-32) mmol/L Anion Gap 6.0 (5.0-14.0) mmol/L BUN 17 (7-18) mg/dL Creatinine 0.9 (0.8-1.3) mg/dL Est Cr Clr Drug Dosing 50.57 mL/min Estimated GFR (MDRD) > 60 (>60) Glucose 160 H (74-106) mg/dL Calcium 9.4 (8.5-10.1) mg/dL Med Orders - Current: Current Medications Acetaminophen (Tylenol) 650 mg PO Q4H PRN PRN Reason: Pain (Mild 1-3)/fever Albuterol (Proventil Neb Soln) 2.5 mg NEB Q4H PRN PRN Reason: Shortness Of Breath/wheezing Albuterol/Ipratropium (Duoneb 3.0-0.5 Mg/3 Ml) 3 ml NEB QID PRN PRN Reason: Shortness Of Breath/wheezing Aspirin (Aspirin) 81 mg PO We@0900 [facility] Guaifenesin/Codeine Phosphate (Robitussin Ac) 10 ml PO Q4H PRN PRN Reason: Cough Ceftriaxone Sodium 2 gm/ (Sodium Chloride) 50 mls @ 100 mls/hr IV Q24H [facility] Last Admin: 04/22/17 21:12 Dose: 100 mls/hr Doxycycline Hyclate 100 mg/ (Sodium Chloride) 100 mls @ 100 mls/hr IV Q12H [facility] Last Admin: 04/23/17 08:28 Dose: 100 mls/hr Sodium Chloride (Normal Saline) 1,000 mls @ 25 mls/hr IV ASDIRECTED [facility] Isosorbide Mononitrate (Imdur) 30 mg PO DAILY@0730 [facility] Last Admin: 04/23/17 08:24 Dose: 30 mg Lorazepam (Ativan) 1 mg IV Q4H PRN PRN Reason: Anxiety Methylprednisolone Sodium Succinate (Solu-Medrol) 125 mg IVPUSH Q8H [facility] Metoprolol Tartrate (Lopressor) 50 mg PO BID [facility] Last Admin: 04/23/17 08:24 Dose: 50 mg Morphine Sulfate (Morphine) 2 mg IVPUSH Q2H PRN PRN Reason: Pain (severe 7-10) Niacin (Niacin) 500 mg PO DAILY [facility] Last Admin: 04/23/17 08:24 Dose: 500 mg Ondansetron HCl (Zofran Odt) 4 mg PO Q6H PRN PRN Reason: Nausea able to take PO Ondansetron HCl (Zofran) 4 mg IV Q4H PRN PRN Reason: Nausea/Vomiting Oxycodone HCl (Oxycodone) 5 mg PO Q4H PRN PRN Reason: Pain (moderate 4-6) Discontinued Medications Sodium Chloride (Normal Saline) 1,000 mls @ 100 mls/hr IV ASDIRECTED [facility] Last Admin: 04/23/17 07:33 Dose: 100 mls/hr Methylprednisolone Sodium Succinate (Solu-Medrol) 125 mg IVPUSH Q8H [facility] Last Admin: 04/23/17 05:02 Dose: 125 mg - Exam Quality Assessment: Supplemental Oxygen General: Alert, Oriented, Cooperative, No Acute Distress Neck: Supple Lungs: Normal Respiratory Effort, Crackles (left lung base) Cardiovascular: Regular Rate, Regular Rhythm GI/Abdominal Exam: Soft, No Distention Extremities: No Pedal Edema, Increased Warmth Skin: Warm, Dry Psy/Mental Status: Alert, Normal Affect - Problem List Review Problem List Initiated/Reviewed/Updated: Yes - My Orders Last 24 Hours: My Active Orders 04/23/17 10:11 Discontinue Telemetry Monitoring [Cardiac Monitoring Discontinue] [RC] Click to Edit PT Evaluation and Treatment [CONS] Routine CLOSTRIDIUM DIFFICILE BY PCR [RM] Routine CULTURE STOOL + SHIGATOX [RM] Routine WBC, STOOL [OP] Routine 04/23/17 10:12 Sodium Chloride 0.9% [Normal Saline] 1,000 ml IV ASDIRECTED 04/23/17 10:15 Lactobacillus Rhamnosus GG [Culturelle] 1 cap PO BID - Plan Plan:: ASSESSMENT / PLAN Left lung pneumonia - stable since admission but requiring supplemental oxygen. Still weak and fatigued. Vital signs otherwise stable. -Saline lock IV -Continue ceftriaxone and doxycycline -Continue IV steroids today, transition to prednisone in the morning -Robitussin dm 10 ml every 4 to 6 hours for cough -albuterol nebulizer every 4 hours as needed for wheezing and cough -Duo nebs every 6 hours prn Diarrhea - mild but persistent. He has had multiple recent antibiotics. -C. difficile testing -Stool culture -Fecal leukocytes Coronary artery disease - no active symptoms. Vital signs stable. -Continue home medications Lung cancer with recent radiation - will need outpatient follow-up once he has stabilized. Maintenance issues -Nutrition: regular diet -Collins catheter not indicated at this time -DVT: SCD Disposition; home with Daughter Tere. Antwon Abraham M.D.
[2017-04-23] MEDS: Lactobacillus Rhamnosus GG (Probiotic) Cap PO SCH ×2 (11:15→20:32)
[2017-04-23] MEDS ORDERED: methylPREDNISolone Sodium Succinate 125 MG/2 ML SDV IVPUSH SCH (14:00)
[2017-04-23] MEDS: cefTRIAXone 2 GM in Sodium Chloride 0.9% 50 ML IV SCH (20:31)
[2017-04-23] MEDS ORDERED: methylPREDNISolone Sodium Succinate 125 MG/2 ML SDV IVPUSH ONE (23:00)
[2017-04-23] MEDS: LORazepam 2 MG/ML MDV IV PRN (23:44)
[2017-04-24] MEDS ORDERED: Fluticasone Propionate Nasal Spray 16 GM Bottle ONE (00:25)
[2017-04-24] MEDS: Fluticasone Propionate Nasal Spray 16 GM Bottle NASBOTH SCH ×3 (00:26→20:44)
[2017-04-24] MEDS: LORazepam 2 MG/ML MDV IV PRN ×2 (03:32→20:57)
[2017-04-24] MEDS: Isosorbide Mononitrate 30 MG Tab.ER PO SCH (08:31)
[2017-04-24] MEDS: Lactobacillus Rhamnosus GG (Probiotic) Cap PO SCH ×2 (08:32→20:45)
[2017-04-24] MEDS: predniSONE 20 MG Tab PO SCH ×2 (08:32→16:36)
[2017-04-24] MEDS: Metoprolol Tartrate 50 MG Tab PO SCH ×2 (08:33→20:43)
[2017-04-24] MEDS: Niacin 500 MG Cap.ER PO SCH (08:33)
[2017-04-24] MEDS: Azelastine Nasal Soln 30 ML Spray Bottle NAS SCH ×2 (08:35→20:45)
[2017-04-24] MEDS: Doxycycline 100 MG in Sodium Chloride 0.9% 100 ML IV SCH (08:38)
[2017-04-24] MEDS ORDERED: Fluticasone Propionate Nasal Spray 16 GM Bottle NASBOTH SCH (09:00)
[2017-04-24] MEDS: Calcium Carbonate 500 MG Tab.Chew PO PRN ×2 (12:00→15:05)
--- NOTE | 2017-04-24 13:39 | PCM.PN ---
- General Info Date of Service: 04/24/17 Functional Status: Reports: Pain Controlled, Tolerating Diet - Review of Systems General: Reports: Weakness Pulmonary: Reports: Shortness of Breath Gastrointestinal: Reports: Other (heartburn) Systems Review Comment:: no acute events overnight but he did have some difficulty with heartburn that kept him from sleeping. Feels tired this morning but otherwise feels a little better. Shortness of breath has improved slightly. Not coughing as much today. He has not had any fevers. Appetite was good yesterday but not as good this morning. Did not tolerate the noninvasive ventilation quite as well last night. - Patient Data Vitals - Most Recent: Last Vital Signs Temp 35.9 C 04/24/17 11:00 Pulse 97 04/24/17 11:00 Resp 18 04/24/17 11:00 BP 170/79 H 04/24/17 11:00 Pulse Ox 94 L 04/24/17 11:00 Weight - Most Recent: 58.513 kg I&O - Last 24 Hours: Intake & Output 04/23/17 04/24/17 04/24/17 22:59 06:59 14:59 Intake Total 1381 490 250 Output Total 800 200 200 Balance 581 290 50 Sean Results Last 24 Hours: Microbiology 04/23/17 22:32 Clostridium difficile (PCR) - Final Stool / Feces NEGATIVE CDIFF TOXIN 04/23/17 22:32 Stool for WBCs - Final Stool / Feces NO WBC SEEN Med Orders - Current: Current Medications Acetaminophen (Tylenol) 650 mg PO Q4H PRN PRN Reason: Pain (Mild 1-3)/fever Albuterol (Proventil Neb Soln) 2.5 mg NEB Q4H PRN PRN Reason: Shortness Of Breath/wheezing Albuterol/Ipratropium (Duoneb 3.0-0.5 Mg/3 Ml) 3 ml NEB QID PRN PRN Reason: Shortness Of Breath/wheezing Last Admin: 04/23/17 22:04 Dose: 3 ml Aspirin (Aspirin) 81 mg PO We@0900 DEVIN Azelastine HCl (Astelin Nasal Soln) 0 ml DENISE BID DEVIN Last Admin: 04/24/17 08:35 Dose: 2 sprays Calcium Carbonate/Glycine (Tums) 1,000 mg PO Q2H PRN PRN Reason: Indigestion Last Admin: 04/24/17 12:00 Dose: 1,000 mg Doxycycline Hyclate (Vibramycin) 100 mg PO BID [facility] Fluticasone Propionate (Flonase) 0 gm NASBOTH BID [facility] Last Admin: 04/24/17 08:33 Dose: 2 spr Guaifenesin/Codeine Phosphate (Robitussin Ac) 10 ml PO Q4H PRN PRN Reason: Cough Heparin Sodium (Porcine) (Heparin Lock Flush 100 Units/Ml) 500 units FLUSH ASDIRECTED PRN PRN Reason: Keep Vein Open Ceftriaxone Sodium 2 gm/ (Sodium Chloride) 50 mls @ 100 mls/hr IV Q24H [facility] Last Admin: 04/23/17 20:31 Dose: 100 mls/hr Isosorbide Mononitrate (Imdur) 30 mg PO DAILY@0730 [facility] Last Admin: 04/24/17 08:31 Dose: 30 mg Lactobacillus Rhamnosus (Culturelle) 1 cap PO BID [facility] Last Admin: 04/24/17 08:32 Dose: 1 cap Lorazepam (Ativan) 1 mg IV Q4H PRN PRN Reason: Anxiety Last Admin: 04/24/17 03:32 Dose: 0.5 mg Metoprolol Tartrate (Lopressor) 50 mg PO BID [facility] Last Admin: 04/24/17 08:33 Dose: 50 mg Mometasone Furoate (Asmanex Hfa 200mcg) 1 gm INH BIDRT [facility] Morphine Sulfate (Morphine) 2 mg IVPUSH Q2H PRN PRN Reason: Pain (severe 7-10) Niacin (Niacin) 500 mg PO DAILY [facility] Last Admin: 04/24/17 08:33 Dose: 500 mg Ondansetron HCl (Zofran Odt) 4 mg PO Q6H PRN PRN Reason: Nausea able to take PO Ondansetron HCl (Zofran) 4 mg IV Q4H PRN PRN Reason: Nausea/Vomiting Oxycodone HCl (Oxycodone) 5 mg PO Q4H PRN PRN Reason: Pain (moderate 4-6) [facility] Last Admin: 04/24/17 08:32 Dose: 20 mg Discontinued Medications Fluticasone Propionate (Flonase) Confirm Administered Dose 16 gm .ROUTE .STK- MED ONE Stop: 04/24/17 00:26 Last Admin: 04/24/17 00:39 Dose: Not Given Doxycycline Hyclate 100 mg/ (Sodium Chloride) 100 mls @ 100 mls/hr IV Q12H [facility] Last Admin: 04/24/17 08:38 Dose: 100 mls/hr Sodium Chloride (Normal Saline) 1,000 mls @ 100 mls/hr IV ASDIRECTED [facility] Last Admin: 04/23/17 07:33 Dose: 100 mls/hr Sodium Chloride (Normal Saline) 1,000 mls @ 25 mls/hr IV ASDIRECTED [facility] Methylprednisolone Sodium Succinate (Solu-Medrol) 125 mg IVPUSH Q8H [facility] Last Admin: 04/23/17 05:02 Dose: 125 mg Methylprednisolone Sodium Succinate (Solu-Medrol) 125 mg IVPUSH Q8H [facility] Last Admin: 04/23/17 13:34 Dose: 125 mg Methylprednisolone Sodium Succinate (Solu-Medrol) 62.5 mg IVPUSH ONETIME ONE Stop: 04/23/17 23:01 Last Admin: 04/23/17 22:06 Dose: 62.5 mg - Exam Quality Assessment: Supplemental Oxygen General: Alert, Oriented, Cooperative, No Acute Distress Neck: Supple Lungs: Normal Respiratory Effort, Crackles (few left midlung). No: Wheezing Cardiovascular: Regular Rate, Regular Rhythm GI/Abdominal Exam: Soft, No Distention Extremities: Pedal Edema (pitting bilateral ankle edema). No: Increased Warmth Skin: Warm, Dry Psy/Mental Status: Alert, Normal Affect - Problem List Review Problem List Initiated/Reviewed/Updated: Yes - My Orders Last 24 Hours: My Active Orders 04/23/17 22:32 CULTURE STOOL + SHIGATOX [RM] Routine 04/24/17 03:09 Calcium Carbonate [Tums] 1,000 mg PO Q2H PRN EKG 12 Lead [EK] Routine 04/24/17 08:00 predniSONE 20 mg PO BIDAC 04/24/17 09:00 Azelastine [Astelin Nasal Soln] 0 ml DENISE BID Fluticasone Propionate [Flonase] 0 gm NASBOTH BID 04/24/17 12:44 Heparin Sodium [Heparin Lock Flush 100 Units/ML] 500 units FLUSH ASDIRECTED PRN 04/24/17 13:32 Convert IV to Saline Lock [OM.PC] Routine 04/24/17 13:36 RT Acapella [RESPCARE] Routine 04/24/17 21:00 Doxycycline [Vibramycin] 100 mg PO BID Mometasone Furoate 200mcg [Asmanex HFA 200mcg] 1 gm INH BIDRT - Plan Plan:: ASSESSMENT / PLAN Left lung pneumonia - stable since admission, still needing supplemental oxygen. Vital signs have been stable otherwise. -Saline lock IV -Continue ceftriaxone and doxycycline (change to oral) -continue prednisone -Trial of mometasone twice daily -Robitussin dm 10 ml every 4 to 6 hours for cough -albuterol nebulizer every 4 hours as needed for wheezing and cough -Duo nebs QID Diarrhea - mild but persistent. C. difficile testing negative and no fecal leukocytes seen. -probiotics -Follow-up stool culture Coronary artery disease - no active symptoms. Vital signs stable. -Continue home medications Lung cancer with recent radiation - will need outpatient follow-up once he has stabilized. Maintenance issues -Nutrition: regular diet -Collins catheter not indicated at this time -DVT: SCD Disposition; home with Daughter Tere, planning to move to [place] with her after the hospital stay. Antwon Abraham M.D.
[2017-04-24] MEDS ORDERED: Aluminum Hydroxide/Magnesium Hydroxide/Simethicone Susp 30 ML Cup PO PRN (13:40)
[2017-04-24] MEDS: Albuterol/Ipratropium 3.0-0.5 MG/3 ML Neb Soln NEB SCH ×2 (14:43→20:45)
[2017-04-24] MEDS: Mometasone Furoate HFA 200 mcg/Puff 13 GM Inhaler INH SCH (20:44)
[2017-04-24] MEDS: Doxycycline 100 MG Cap PO SCH (20:45)
[2017-04-24] MEDS: cefTRIAXone 2 GM in Sodium Chloride 0.9% 50 ML IV SCH (20:45)
[2017-04-25] MEDS: Albuterol/Ipratropium 3.0-0.5 MG/3 ML Neb Soln NEB SCH ×4 (07:22→20:25)
[2017-04-25] MEDS: predniSONE 20 MG Tab PO SCH ×2 (07:46→16:36)
[2017-04-25] MEDS: Isosorbide Mononitrate 30 MG Tab.ER PO SCH (07:48)
[2017-04-25] MEDS: Azelastine Nasal Soln 30 ML Spray Bottle NAS SCH ×2 (08:01→20:24)
[2017-04-25] MEDS: Metoprolol Tartrate 50 MG Tab PO SCH ×2 (08:02→20:25)
[2017-04-25] MEDS: Fluticasone Propionate Nasal Spray 16 GM Bottle NASBOTH SCH ×2 (08:02→20:24)
[2017-04-25] MEDS: Doxycycline 100 MG Cap PO SCH ×2 (08:02→20:25)
[2017-04-25] MEDS: Lactobacillus Rhamnosus GG (Probiotic) Cap PO SCH ×2 (08:02→20:24)
[2017-04-25] MEDS: Niacin 500 MG Cap.ER PO SCH (08:02)
[2017-04-25] MEDS: Mometasone Furoate HFA 200 mcg/Puff 13 GM Inhaler INH SCH ×2 (08:47→20:24)
--- NOTE | 2017-04-25 11:09 | PCM.PN ---
- General Info Date of Service: 04/25/17 Functional Status: Reports: Pain Controlled, Tolerating Diet - Review of Systems General: Reports: Weakness Pulmonary: Reports: Shortness of Breath, Cough Systems Review Comment:: No acute events overnight, did use noninvasive ventilation overnight and is back on 2 L of supplemental oxygen this morning. Feels a little stronger today and has a little less shortness of breath but still weak and requiring supplemental oxygen. He has not had any fevers. Appetite has been good. Stool culture did grow out yeast but I suspect this is more of an overgrowth rather than an infection. - Patient Data Vitals - Most Recent: Last Vital Signs Temp 36.2 C 04/25/17 07:00 Pulse 112 H 04/25/17 08:02 Resp 24 H 04/25/17 07:00 BP 145/57 H 04/25/17 08:02 Pulse Ox 96 04/25/17 07:00 Weight - Most Recent: 58.513 kg I&O - Last 24 Hours: Intake & Output 04/24/17 04/25/17 04/25/17 22:59 06:59 14:59 Intake Total 55 500 520 Output Total 325 300 Balance -270 200 520 Sean Results Last 24 Hours: Microbiology 04/23/17 22:32 Stool Culture - Preliminary Stool / Feces YEAST - Final NEGATIVE FOR SHIGA TOXIN 1 - Final NEGATIVE FOR SHIGA TOXIN 2 Med Orders - Current: Current Medications Acetaminophen (Tylenol) 650 mg PO Q4H PRN PRN Reason: Pain (Mild 1-3)/fever Al Hydroxide/Mg Hydroxide (Mag-Al Plus) 30 ml PO Q4H PRN PRN Reason: Indigestion Albuterol (Proventil Neb Soln) 2.5 mg NEB Q4H PRN PRN Reason: Shortness Of Breath/wheezing Albuterol/Ipratropium (Duoneb 3.0-0.5 Mg/3 Ml) 3 ml NEB QIDRT [facility] Last Admin: 04/25/17 11:08 Dose: 3 ml Aspirin (Aspirin) 81 mg PO We@0900 DEVIN Azelastine HCl (Astelin Nasal Soln) 0 ml DENISE BID [facility] Last Admin: 04/25/17 08:01 Dose: 2 sprays Calcium Carbonate/Glycine (Tums) 1,000 mg PO Q2H PRN PRN Reason: Indigestion Last Admin: 04/24/17 15:05 Dose: 1,000 mg Doxycycline Hyclate (Vibramycin) 100 mg PO BID [facility] Last Admin: 04/25/17 08:02 Dose: 100 mg Fluticasone Propionate (Flonase) 0 gm NASBOTH BID [facility] Last Admin: 04/25/17 08:02 Dose: 2 spr Guaifenesin/Codeine Phosphate (Robitussin Ac) 10 ml PO Q4H PRN PRN Reason: Cough Heparin Sodium (Porcine) (Heparin Lock Flush 100 Units/Ml) 500 units FLUSH ASDIRECTED PRN PRN Reason: Keep Vein Open Last Admin: 04/24/17 21:54 Dose: 500 units Ceftriaxone Sodium 2 gm/ (Sodium Chloride) 50 mls @ 100 mls/hr IV Q24H [facility] Last Admin: 04/24/17 20:45 Dose: 100 mls/hr Isosorbide Mononitrate (Imdur) 30 mg PO DAILY@0730 [facility] Last Admin: 04/25/17 07:48 Dose: 30 mg Lactobacillus Rhamnosus (Culturelle) 1 cap PO BID [facility] Last Admin: 04/25/17 08:02 Dose: 1 cap Lorazepam (Ativan) 1 mg IV Q4H PRN PRN Reason: Anxiety Last Admin: 04/24/17 20:57 Dose: 0.5 mg Metoprolol Tartrate (Lopressor) 50 mg PO BID [facility] Last Admin: 04/25/17 08:02 Dose: 50 mg Mometasone Furoate (Asmanex Hfa 200mcg) 0 gm INH BIDRT [facility] Last Admin: 04/25/17 08:47 Dose: 1 puff Morphine Sulfate (Morphine) 2 mg IVPUSH Q2H PRN PRN Reason: Pain (severe 7-10) Niacin (Niacin) 500 mg PO DAILY [facility] Last Admin: 04/25/17 08:02 Dose: 500 mg Ondansetron HCl (Zofran Odt) 4 mg PO Q6H PRN PRN Reason: Nausea able to take PO Ondansetron HCl (Zofran) 4 mg IV Q4H PRN PRN Reason: Nausea/Vomiting Oxycodone HCl (Oxycodone) 5 mg PO Q4H PRN PRN Reason: Pain (moderate 4-6) Prednisone (Prednisone) 20 mg PO BIDAC [facility] Last Admin: 04/25/17 07:46 Dose: 20 mg Discontinued Medications Albuterol/Ipratropium (Duoneb 3.0-0.5 Mg/3 Ml) 3 ml NEB QID PRN PRN Reason: Shortness Of Breath/wheezing Last Admin: 04/23/17 22:04 Dose: 3 ml Fluticasone Propionate (Flonase) Confirm Administered Dose 16 gm .ROUTE .STK- MED ONE Stop: 04/24/17 00:26 Last Admin: 04/24/17 00:39 Dose: Not Given Doxycycline Hyclate 100 mg/ (Sodium Chloride) 100 mls @ 100 mls/hr IV Q12H [facility] Last Admin: 04/24/17 08:38 Dose: 100 mls/hr Sodium Chloride (Normal Saline) 1,000 mls @ 100 mls/hr IV ASDIRECTED [facility] Last Admin: 04/23/17 07:33 Dose: 100 mls/hr Sodium Chloride (Normal Saline) 1,000 mls @ 25 mls/hr IV ASDIRECTED [facility] Methylprednisolone Sodium Succinate (Solu-Medrol) 125 mg IVPUSH Q8H [facility] Last Admin: 04/23/17 05:02 Dose: 125 mg Methylprednisolone Sodium Succinate (Solu-Medrol) 125 mg IVPUSH Q8H [facility] Last Admin: 04/23/17 13:34 Dose: 125 mg Methylprednisolone Sodium Succinate (Solu-Medrol) 62.5 mg IVPUSH ONETIME ONE Stop: 04/23/17 23:01 Last Admin: 04/23/17 22:06 Dose: 62.5 mg - Exam Quality Assessment: Supplemental Oxygen General: Alert, Oriented, Cooperative, No Acute Distress Neck: Supple Lungs: Normal Respiratory Effort, Crackles (left lower and mid lung). No: Wheezing Cardiovascular: Regular Rate, Regular Rhythm GI/Abdominal Exam: Soft, No Distention Extremities: Pedal Edema (mild bilateral pitting ankle edema). No: Increased Warmth Skin: Warm, Dry Psy/Mental Status: Alert, Normal Affect - Problem List Review Problem List Initiated/Reviewed/Updated: Yes - My Orders Last 24 Hours: My Active Orders 04/24/17 12:44 Heparin Sodium [Heparin Lock Flush 100 Units/ML] 500 units FLUSH ASDIRECTED PRN 04/24/17 13:32 Convert IV to Saline Lock [OM.PC] Routine 04/24/17 13:36 RT Acapella [RESPCARE] Routine 04/24/17 13:40 Alum Hydrox/Mag Hydrox/Simeth [Mag-Al Plus] 30 ml PO Q4H PRN 04/24/17 15:00 Albuterol/Ipratropium [DuoNeb 3.0-0.5 MG/3 ML] 3 ml NEB QIDRT 04/24/17 21:00 Doxycycline [Vibramycin] 100 mg PO BID Mometasone Furoate 200mcg [Asmanex HFA 200mcg] 0 gm INH BIDRT 04/26/17 05:00 BASIC METABOLIC PANEL,BMP [CHEM] Timed CBC W/O DIFF,HEMOGRAM [HEME] Timed (1) 04/26/17 08:00 predniSONE 30 mg PO WITHBREAKFAST - Plan Plan:: ASSESSMENT / PLAN Left lung pneumonia - stable since admission but still needing supplemental oxygen. Week but strength is slowly improving. -Saline lock IV -Continue ceftriaxone and doxycycline (change to oral) -continue prednisone with dose reduction tomorrow -Trial of mometasone twice daily -Robitussin dm 10 ml every 4 to 6 hours for cough -albuterol nebulizer every 4 hours as needed for wheezing and cough -Duo nebs QID Diarrhea - mild and seems to be improving with probiotics. Stool culture did grow yeast but I don't think this is an actual infection but more of an overgrowth with recent antibiotics and steroids. -probiotics -Follow-up stool culture Coronary artery disease - no active symptoms. Vital signs stable. -Continue home medications Lung cancer with recent radiation - will need outpatient follow-up once he has stabilized. Maintenance issues -Nutrition: regular diet -Collins catheter not indicated at this time -DVT: SCD Disposition; home with Daughter Tere, planning to move to [place] with her after the hospital stay. Antwon Abraham M.D.
[2017-04-25] MEDS: Calcium Carbonate 500 MG Tab.Chew PO PRN ×2 (17:39→20:32)
[2017-04-25] MEDS: cefTRIAXone 2 GM in Sodium Chloride 0.9% 50 ML IV SCH (20:23)
[2017-04-25] MEDS: LORazepam 2 MG/ML MDV IV PRN (20:32)
[2017-04-26] MEDS: Albuterol/Ipratropium 3.0-0.5 MG/3 ML Neb Soln NEB SCH ×4 (07:32→20:01)
[2017-04-26] MEDS: Mometasone Furoate HFA 200 mcg/Puff 13 GM Inhaler INH SCH ×2 (07:44→20:03)
[2017-04-26] MEDS: Isosorbide Mononitrate 30 MG Tab.ER PO SCH (08:25)
[2017-04-26] MEDS: predniSONE 10 MG Tab PO SCH (08:25)
[2017-04-26] MEDS: Fluticasone Propionate Nasal Spray 16 GM Bottle NASBOTH SCH ×2 (08:26→20:03)
[2017-04-26] MEDS: Lactobacillus Rhamnosus GG (Probiotic) Cap PO SCH ×2 (08:27→20:04)
[2017-04-26] MEDS: Niacin 500 MG Cap.ER PO SCH (08:27)
[2017-04-26] MEDS: Metoprolol Tartrate 50 MG Tab PO SCH ×2 (08:27→20:04)
[2017-04-26] MEDS: Doxycycline 100 MG Cap PO SCH (08:27)
--- NOTE | 2017-04-26 09:04 | PCM.PN ---
- General Info Date of Service: 04/26/17 Functional Status: Reports: Pain Controlled, Tolerating Diet - Review of Systems General: Reports: Weakness Pulmonary: Reports: Shortness of Breath Systems Review Comment:: No acute events overnight. Still feels weak and tired. Still needing 2-2 and half liters of oxygen. Very short of breath with any activity. Has a dry cough. He has not had any fevers. White blood cell count is up from yesterday. - Patient Data Vitals - Most Recent: Last Vital Signs Temp 36.6 C 04/26/17 07:52 Pulse 111 H 04/26/17 08:27 Resp 19 04/26/17 07:52 BP 169/87 H 04/26/17 08:27 Pulse Ox 94 L 04/26/17 07:52 Weight - Most Recent: 58.513 kg I&O - Last 24 Hours: Intake & Output 04/25/17 04/26/17 04/26/17 22:59 06:59 14:59 Intake Total 355 300 Output Total 400 Balance 355 -400 300 Lab Results Last 24 Hours: Laboratory Results - last 24 hr 04/26/17 04/26/17 Range/Units 05:54 05:54 WBC 14.9 H (4.5-11.0) K/uL RBC 3.82 L (4.30-5.90) M/uL Hgb 10.8 L (12.0-15.0) g/dL Hct 33.1 L (40.0-54.0) % MCV 87 (80-98) fL MCH 28 (27-31) pg MCHC 33 (32-36) % Plt Count 303 (150-400) K/uL Sodium 144 (140-148) mmol/L Potassium 4.1 (3.6-5.2) mmol/L Chloride 108 (100-108) mmol/L Carbon Dioxide 30 (21-32) mmol/L Anion Gap 6.1 (5.0-14.0) mmol/L BUN 17 (7-18) mg/dL Creatinine 0.8 (0.8-1.3) mg/dL Est Cr Clr Drug Dosing 56.89 mL/min Estimated GFR (MDRD) > 60 (>60) Glucose 153 H (74-106) mg/dL Calcium 8.7 (8.5-10.1) mg/dL Sean Results Last 24 Hours: Microbiology 04/23/17 22:32 Stool Culture - Preliminary Stool / Feces YEAST - Final NEGATIVE FOR SHIGA TOXIN 1 - Final NEGATIVE FOR SHIGA TOXIN 2 Med Orders - Current: Current Medications Acetaminophen (Tylenol) 650 mg PO Q4H PRN PRN Reason: Pain (Mild 1-3)/fever Al Hydroxide/Mg Hydroxide (Mag-Al Plus) 30 ml PO Q4H PRN PRN Reason: Indigestion Albuterol (Proventil Neb Soln) 2.5 mg NEB Q4H PRN PRN Reason: Shortness Of Breath/wheezing Albuterol/Ipratropium (Duoneb 3.0-0.5 Mg/3 Ml) 3 ml NEB QIDRT [facility] Last Admin: 04/26/17 07:32 Dose: 3 ml Aspirin (Aspirin) 81 mg PO We@0900 [facility] Azelastine HCl (Astelin Nasal Soln) 0 ml DENISE BID [facility] Last Admin: 04/25/17 20:24 Dose: 2 sprays Calcium Carbonate/Glycine (Tums) 1,000 mg PO Q2H PRN PRN Reason: Indigestion Last Admin: 04/25/17 20:32 Dose: 1,000 mg Fluticasone Propionate (Flonase) 0 gm NASBOTH BID [facility] Last Admin: 04/26/17 08:26 Dose: 2 spr Guaifenesin/Codeine Phosphate (Robitussin Ac) 10 ml PO Q4H PRN PRN Reason: Cough Heparin Sodium (Porcine) (Heparin Lock Flush 100 Units/Ml) 500 units FLUSH ASDIRECTED PRN PRN Reason: Keep Vein Open Last Admin: 04/25/17 20:33 Dose: 500 units Levofloxacin/Dextrose 750 mg/ (Premix) 150 mls @ 100 mls/hr IV Q24H [facility] Meropenem 1 gm/ Sodium (Chloride) 50 mls @ 100 mls/hr IV Q8H [facility] Isosorbide Mononitrate (Imdur) 30 mg PO DAILY@0730 [facility] Last Admin: 04/26/17 08:25 Dose: 30 mg Lactobacillus Rhamnosus (Culturelle) 1 cap PO BID [facility] Last Admin: 04/26/17 08:27 Dose: 1 cap Lorazepam (Ativan) 1 mg IV Q4H PRN PRN Reason: Anxiety Last Admin: 04/25/17 20:32 Dose: 0.5 mg Metoprolol Tartrate (Lopressor) 50 mg PO BID [facility] Last Admin: 04/26/17 08:27 Dose: 50 mg Mometasone Furoate (Asmanex Hfa 200mcg) 0 gm INH BIDRT [facility] Last Admin: 04/26/17 07:44 Dose: 1 puff Morphine Sulfate (Morphine) 2 mg IVPUSH Q2H PRN PRN Reason: Pain (severe 7-10) Niacin (Niacin) 500 mg PO DAILY [facility] Last Admin: 04/26/17 08:27 Dose: 500 mg Ondansetron HCl (Zofran Odt) 4 mg PO Q6H PRN PRN Reason: Nausea able to take PO Ondansetron HCl (Zofran) 4 mg IV Q4H PRN PRN Reason: Nausea/Vomiting Oxycodone HCl (Oxycodone) 5 mg PO Q4H PRN PRN Reason: Pain (moderate 4-6) Prednisone (Prednisone) 30 mg PO WITHBREAKFAST [facility] Last Admin: 04/26/17 08:25 Dose: 30 mg Discontinued Medications Albuterol/Ipratropium (Duoneb 3.0-0.5 Mg/3 Ml) 3 ml NEB QID PRN PRN Reason: Shortness Of Breath/wheezing Last Admin: 04/23/17 22:04 Dose: 3 ml Doxycycline Hyclate (Vibramycin) 100 mg PO BID [facility] Last Admin: 04/26/17 08:27 Dose: 100 mg Fluticasone Propionate (Flonase) Confirm Administered Dose 16 gm .ROUTE .[facility]- MED ONE Stop: 04/24/17 00:26 Last Admin: 04/24/17 00:39 Dose: Not Given Ceftriaxone Sodium 2 gm/ (Sodium Chloride) 50 mls @ 100 mls/hr IV Q24H [facility] Last Admin: 04/25/17 20:23 Dose: 100 mls/hr Doxycycline Hyclate 100 mg/ (Sodium Chloride) 100 mls @ 100 mls/hr IV Q12H [facility] Last Admin: 04/24/17 08:38 Dose: 100 mls/hr Sodium Chloride (Normal Saline) 1,000 mls @ 100 mls/hr IV ASDIRECTED [facility] Last Admin: 04/23/17 07:33 Dose: 100 mls/hr Sodium Chloride (Normal Saline) 1,000 mls @ 25 mls/hr IV ASDIRECTED [facility] Methylprednisolone Sodium Succinate (Solu-Medrol) 125 mg IVPUSH Q8H [facility] Last Admin: 04/23/17 05:02 Dose: 125 mg Methylprednisolone Sodium Succinate (Solu-Medrol) 125 mg IVPUSH Q8H [facility] Last Admin: 04/23/17 13:34 Dose: 125 mg Methylprednisolone Sodium Succinate (Solu-Medrol) 62.5 mg IVPUSH ONETIME ONE Stop: 04/23/17 23:01 Last Admin: 04/23/17 22:06 Dose: 62.5 mg Prednisone (Prednisone) 20 mg PO BIDAC [facility]IN Stop: 04/25/17 20:00 Last Admin: 04/25/17 16:36 Dose: 20 mg - Exam Quality Assessment: Supplemental Oxygen General: Alert, Oriented, Cooperative, No Acute Distress Neck: Supple Lungs: Normal Respiratory Effort, Crackles (left mid lung). No: Wheezing Cardiovascular: Regular Rhythm, Tachycardia GI/Abdominal Exam: Soft, No Distention Extremities: Pedal Edema (mild bilateral ankle edema) Skin: Warm, Dry Psy/Mental Status: Alert, Normal Affect - Problem List Review Problem List Initiated/Reviewed/Updated: Yes - My Orders Last 24 Hours: My Active Orders 04/26/17 08:00 predniSONE 30 mg PO WITHBREAKFAST 04/26/17 09:15 Levofloxacin/Dextrose 5%-Water [Levaquin in D5W 750 MG/150 ML] 750 mg Premix Bag 1 bag IV Q24H Meropenem [Merrem] 1 gm Sodium Chloride 0.9% [Normal Saline] 50 ml IV Q8H 04/27/17 05:00 BASIC METABOLIC PANEL,BMP [CHEM] Timed CBC W/O DIFF,HEMOGRAM [HEME] Timed (1) - Plan Plan:: ASSESSMENT / PLAN Left lung pneumonia - stable since admission but not improving as I would expect. White blood cell count did jump. Oxygenation is stable to slightly worse today. -Saline lock IV -Change antibiotics to levofloxacin and meropenem -continue prednisone with dose reduction to 30 mg today -Trial of mometasone twice daily -Robitussin dm 10 ml every 4 to 6 hours for cough -albuterol nebulizer every 4 hours as needed for wheezing and cough -Duo nebs QID Diarrhea - mild and seems to be improving with probiotics. Stool culture did grow yeast but I don't think this is an actual infection but more of an overgrowth with recent antibiotics and steroids. Clinically improving. -probiotics -Follow-up stool culture COPD - patient has had several exacerbations due to bronchitis and now due to pneumonia. We did see if he would qualify for a home ventilation system or home noninvasive ventilation but unfortunately he did not qualify. He will continue to use his CPAP. Coronary artery disease - no active symptoms. Vital signs stable. -Continue home medications Lung cancer with recent radiation - will need outpatient follow-up once he has stabilized. Maintenance issues -Nutrition: regular diet -Collins catheter not indicated at this time -DVT: SCD Disposition; home with Daughter Tere, planning to move to [place] with her after the hospital stay. Antwon Abraham M.D.
[2017-04-26] MEDS: Levofloxacin/Dextrose 5%-Water 750 MG in Premix Bag 1 BAG IV SCH (09:58)
[2017-04-26] MEDS: Azelastine Nasal Soln 30 ML Spray Bottle NAS SCH ×2 (09:58→20:04)
[2017-04-26] MEDS: Meropenem 1 GM in Sodium Chloride 0.9% 100 ML IV SCH ×2 (12:09→18:33)
[2017-04-26] MEDS: LORazepam 2 MG/ML MDV IV PRN (22:15)
[2017-04-27] MEDS: Meropenem 1 GM in Sodium Chloride 0.9% 100 ML IV SCH ×3 (03:21→17:45)
[2017-04-27] MEDS: predniSONE 10 MG Tab PO SCH (07:33)
[2017-04-27] MEDS: Isosorbide Mononitrate 30 MG Tab.ER PO SCH (07:33)
[2017-04-27] MEDS: Albuterol/Ipratropium 3.0-0.5 MG/3 ML Neb Soln NEB SCH ×4 (07:43→20:50)
[2017-04-27] MEDS: Mometasone Furoate HFA 200 mcg/Puff 13 GM Inhaler INH SCH ×2 (07:44→20:53)
[2017-04-27] MEDS: Metoprolol Tartrate 50 MG Tab PO SCH ×2 (08:30→20:52)
[2017-04-27] MEDS: Fluticasone Propionate Nasal Spray 16 GM Bottle NASBOTH SCH ×2 (08:30→20:52)
[2017-04-27] MEDS: Niacin 500 MG Cap.ER PO SCH (08:30)
[2017-04-27] MEDS: Azelastine Nasal Soln 30 ML Spray Bottle NAS SCH ×2 (08:30→20:53)
[2017-04-27] MEDS: Lactobacillus Rhamnosus GG (Probiotic) Cap PO SCH ×2 (08:30→20:52)
[2017-04-27] MEDS: Levofloxacin/Dextrose 5%-Water 750 MG in Premix Bag 1 BAG IV SCH (08:31)
--- NOTE | 2017-04-27 12:15 | PCM.PN ---
- General Info Date of Service: 04/27/17 Subjective Update: This patient is a 86-year-old gentleman admitted with pneumonia and underlying lung cancer. He has been treated with IV antibiotics but really is shown no significant improvement, antibiotic regimen was changed yesterday to meropenem and levofloxacin. He has remained afebrile but denies significant improvement in his shortness of breath or cough. Functional Status: Reports: Ambulating, Urinating - Review of Systems General: Reports: Weakness. Denies: Fever, Chills Pulmonary: Reports: Shortness of Breath, Cough. Denies: Pleuritic Chest Pain, Hemoptysis, Wheezing Cardiovascular: Reports: Dyspnea on Exertion, Edema. Denies: Chest Pain, Palpitations, Orthopnea, PND Gastrointestinal: Reports: No Symptoms - Patient Data Vitals - Most Recent: Last Vital Signs Temp 98.5 F 04/27/17 11:31 Pulse 99 04/27/17 11:31 Resp 20 04/27/17 11:31 BP 139/72 04/27/17 11:31 Pulse Ox 92 L 04/27/17 11:31 Weight - Most Recent: 128 lb 15.985 oz I&O - Last 24 Hours: Intake & Output 04/26/17 04/27/17 04/27/17 22:59 06:59 14:59 Intake Total 400 160 220 Output Total 200 900 400 Balance 200 -740 -180 Lab Results Last 24 Hours: Laboratory Results - last 24 hr 04/27/17 04/27/17 Range/Units 05:27 05:27 WBC 12.6 H (4.5-11.0) K/uL RBC 3.81 L (4.30-5.90) M/uL Hgb 11.0 L (12.0-15.0) g/dL Hct 33.0 L (40.0-54.0) % MCV 87 (80-98) fL MCH 29 (27-31) pg MCHC 33 (32-36) % Plt Count 220 (150-400) K/uL Sodium 141 (140-148) mmol/L Potassium 4.1 (3.6-5.2) mmol/L Chloride 106 (100-108) mmol/L Carbon Dioxide 30 (21-32) mmol/L Anion Gap 4.6 L (5.0-14.0) mmol/L BUN 16 (7-18) mg/dL Creatinine 0.9 (0.8-1.3) mg/dL Est Cr Clr Drug Dosing 50.57 mL/min Estimated GFR (MDRD) > 60 (>60) Glucose 110 H (74-106) mg/dL Calcium 8.6 (8.5-10.1) mg/dL Sean Results Last 24 Hours: Microbiology 04/23/17 22:32 Stool Culture - Final Stool / Feces YEAST - Final NEGATIVE FOR SHIGA TOXIN 1 - Final NEGATIVE FOR SHIGA TOXIN 2 Med Orders - Current: Current Medications Acetaminophen (Tylenol) 650 mg PO Q4H PRN PRN Reason: Pain (Mild 1-3)/fever Al Hydroxide/Mg Hydroxide (Mag-Al Plus) 30 ml PO Q4H PRN PRN Reason: Indigestion Albuterol (Proventil Neb Soln) 2.5 mg NEB Q4H PRN PRN Reason: Shortness Of Breath/wheezing Last Admin: 04/27/17 04:39 Dose: 2.5 mg Albuterol/Ipratropium (Duoneb 3.0-0.5 Mg/3 Ml) 3 ml NEB QIDRT [facility] Last Admin: 04/27/17 11:06 Dose: 3 ml Aspirin (Aspirin) 81 mg PO We@0900 DEVIN Azelastine HCl (Astelin Nasal Soln) 0 ml DENISE BID [facility] Last Admin: 04/27/17 08:30 Dose: 2 sprays Calcium Carbonate/Glycine (Tums) 1,000 mg PO Q2H PRN PRN Reason: Indigestion Last Admin: 04/25/17 20:32 Dose: 1,000 mg Fluticasone Propionate (Flonase) 0 gm NASBOTH BID [facility] Last Admin: 04/27/17 08:30 Dose: 2 spr Furosemide (Lasix) 20 mg IVPUSH DAILY [facility] Guaifenesin/Codeine Phosphate (Robitussin Ac) 10 ml PO Q4H PRN PRN Reason: Cough Heparin Sodium (Porcine) (Heparin Lock Flush 100 Units/Ml) 500 units FLUSH ASDIRECTED PRN PRN Reason: Keep Vein Open Last Admin: 04/25/17 20:33 Dose: 500 units Levofloxacin/Dextrose 750 mg/ (Premix) 150 mls @ 100 mls/hr IV Q24H [facility] Last Admin: 04/27/17 08:31 Dose: 100 mls/hr Meropenem 1 gm/ Sodium (Chloride) 100 mls @ 200 mls/hr IV Q8H [facility] Last Admin: 04/27/17 10:17 Dose: 200 mls/hr Isosorbide Mononitrate (Imdur) 30 mg PO DAILY@0730 [facility] Last Admin: 04/27/17 07:33 Dose: 30 mg Lactobacillus Rhamnosus (Culturelle) 1 cap PO BID [facility] Last Admin: 04/27/17 08:30 Dose: 1 cap Lorazepam (Ativan) 1 mg IV Q4H PRN PRN Reason: Anxiety Last Admin: 04/26/17 22:15 Dose: 0.5 mg Metoprolol Tartrate (Lopressor) 50 mg PO BID [facility] Last Admin: 04/27/17 08:30 Dose: 50 mg Mometasone Furoate (Asmanex Hfa 200mcg) 0 gm INH BIDRT [facility] Last Admin: 04/27/17 07:44 Dose: 1 puff Morphine Sulfate (Morphine) 2 mg IVPUSH Q2H PRN PRN Reason: Pain (severe 7-10) Niacin (Niacin) 500 mg PO DAILY [facility] Last Admin: 04/27/17 08:30 Dose: 500 mg Ondansetron HCl (Zofran Odt) 4 mg PO Q6H PRN PRN Reason: Nausea able to take PO Ondansetron HCl (Zofran) 4 mg IV Q4H PRN PRN Reason: Nausea/Vomiting Oxycodone HCl (Oxycodone) 5 mg PO Q4H PRN PRN Reason: Pain (moderate 4-6) Prednisone (Prednisone) 30 mg PO WITHBREAKFAST [facility] Last Admin: 04/27/17 07:33 Dose: 30 mg Discontinued Medications Albuterol/Ipratropium (Duoneb 3.0-0.5 Mg/3 Ml) 3 ml NEB QID PRN PRN Reason: Shortness Of Breath/wheezing Last Admin: 04/23/17 22:04 Dose: 3 ml Doxycycline Hyclate (Vibramycin) 100 mg PO BID [facility] Last Admin: 04/26/17 08:27 Dose: 100 mg Fluticasone Propionate (Flonase) Confirm Administered Dose 16 gm .ROUTE .STK- MED ONE Stop: 04/24/17 00:26 Last Admin: 04/24/17 00:39 Dose: Not Given Ceftriaxone Sodium 2 gm/ (Sodium Chloride) 50 mls @ 100 mls/hr IV Q24H [facility] Last Admin: 04/25/17 20:23 Dose: 100 mls/hr Doxycycline Hyclate 100 mg/ (Sodium Chloride) 100 mls @ 100 mls/hr IV Q12H [facility] Last Admin: 04/24/17 08:38 Dose: 100 mls/hr Sodium Chloride (Normal Saline) 1,000 mls @ 100 mls/hr IV ASDIRECTED [facility] Last Admin: 04/23/17 07:33 Dose: 100 mls/hr Sodium Chloride (Normal Saline) 1,000 mls @ 25 mls/hr IV ASDIRECTED [facility] Methylprednisolone Sodium Succinate (Solu-Medrol) 125 mg IVPUSH Q8H [facility] Last Admin: 04/23/17 05:02 Dose: 125 mg Methylprednisolone Sodium Succinate (Solu-Medrol) 125 mg IVPUSH Q8H [facility] Last Admin: 04/23/17 13:34 Dose: 125 mg Methylprednisolone Sodium Succinate (Solu-Medrol) 62.5 mg IVPUSH ONETIME ONE Stop: 04/23/17 23:01 Last Admin: 04/23/17 22:06 Dose: 62.5 mg Prednisone (Prednisone) 20 mg PO BIDAC [facility] Stop: 04/25/17 20:00 Last Admin: 04/25/17 16:36 Dose: 20 mg - Exam Quality Assessment: Supplemental Oxygen, DVT Prophylaxis General: Alert, Oriented, Cooperative, Mild Distress Lungs: Clear to Auscultation, Normal Respiratory Effort Cardiovascular: Regular Rate, Regular Rhythm, Murmurs. No: Bradycardia, Tachycardia GI/Abdominal Exam: Soft, Non-Tender, No Organomegaly, No Distention Extremities: Non-Tender, Pedal Edema Skin: Warm, Dry - Problem List Review Problem List Initiated/Reviewed/Updated: Yes - My Orders Last 24 Hours: My Active Orders 04/27/17 12:00 Furosemide [Lasix] 20 mg IVPUSH DAILY 04/28/17 05:00 BASIC METABOLIC PANEL,BMP [CHEM] Timed CBC WITH AUTO DIFF [HEME] Timed MAGNESIUM [CHEM] Timed - Plan Plan:: ASSESSMENT / PLAN Left lung pneumonia - has not experienced significant improvement with change in antibiotics yesterday -Saline lock IV -Continue levofloxacin and meropenem -continue prednisone 30 mg today -Trial of mometasone twice daily -Robitussin dm 10 ml every 4 to 6 hours for cough -albuterol nebulizer every 4 hours as needed for wheezing and cough -Duo nebs QID Peripheral edema -Furosemide 20 mg IV daily Diarrhea - mild and seems to be improving with probiotics. Stool culture did grow yeast but I don't think this is an actual infection but more of an overgrowth with recent antibiotics and steroids. Clinically improving. -probiotics -Follow-up stool culture COPD - patient has had several exacerbations due to bronchitis and now due to pneumonia. We did see if he would qualify for a home ventilation system or home noninvasive ventilation but unfortunately he did not qualify. He will continue to use his CPAP. Coronary artery disease - no active symptoms. Vital signs stable. -Continue home medications Lung cancer with recent radiation - will need outpatient follow-up once he has stabilized. Maintenance issues -Nutrition: regular diet -Collins catheter not indicated at this time -DVT: SCD Disposition; home with Daughter Tere, planning to move to [place] with her after the hospital stay.
[2017-04-27] MEDS: Furosemide 20 MG/2 ML VIAL IVPUSH SCH (12:53)
[2017-04-27] MEDS ORDERED: Melatonin 3 MG Tab PO PRN (19:34)
[2017-04-28] MEDS: Meropenem 1 GM in Sodium Chloride 0.9% 100 ML IV SCH ×2 (02:50→11:33)
--- NOTE | 2017-04-28 06:03 | PCM.SN ---
- Free Text/Narrative Note: date 04-27-17 time 19:35 call from 2 [facility]; requesting sleep aide A; sleep disruption P: Melatonin 6 mg po q hs prn . continue present plan of care.
[2017-04-28] MEDS: Isosorbide Mononitrate 30 MG Tab.ER PO SCH (07:05)
[2017-04-28] MEDS: predniSONE 10 MG Tab PO SCH (07:08)
[2017-04-28] MEDS: Albuterol/Ipratropium 3.0-0.5 MG/3 ML Neb Soln NEB SCH ×3 (07:19→15:00)
[2017-04-28] MEDS: Mometasone Furoate HFA 200 mcg/Puff 13 GM Inhaler INH SCH (07:19)
[2017-04-28] MEDS: Lactobacillus Rhamnosus GG (Probiotic) Cap PO SCH (08:20)
[2017-04-28] MEDS: Fluticasone Propionate Nasal Spray 16 GM Bottle NASBOTH SCH (08:20)
[2017-04-28] MEDS: Niacin 500 MG Cap.ER PO SCH (08:21)
[2017-04-28] MEDS: Metoprolol Tartrate 50 MG Tab PO SCH (08:21)
[2017-04-28] MEDS: Furosemide 20 MG/2 ML VIAL IVPUSH SCH (08:21)
[2017-04-28] MEDS: Azelastine Nasal Soln 30 ML Spray Bottle NAS SCH (08:21)
[2017-04-28] MEDS ORDERED: Aspirin 81 MG Tab.Chew PO SCH (09:00)
[2017-04-28] MEDS: Levofloxacin/Dextrose 5%-Water 750 MG in Premix Bag 1 BAG IV SCH (09:20)
[2017-04-28] MEDS ORDERED: Iopamidol 755 Mg/ML 100 ML Bottle IV SCH (09:45)
[2017-04-28] MEDS ORDERED: Sodium Chloride 0.9% 100 ML IV SCH (09:45)
[2017-04-28] MEDS ORDERED: Vancomycin 1 GM SDV IV SCH (10:00)
--- NOTE | 2017-04-28 11:53 | CT ---
Ang Chest HISTORY: Lung cancer with persistent hypoxia. COMPARISON: 06 March 2017. TECHNIQUE: Intravenous contrast was administered, followed by axial imaging from the lung apices exte nding through the hemidiaphragms. 3D Coronal and/or sagittal MIP reconstructions were obtained and re viewed. Total DLP: 468. FINDINGS: The central and segmental pulmonary arteries are well-opacified. There are no filling defec ts. There is no vessel truncation. There are no findings of pulmonary embolism. There has been interval development of fairly diffuse ground glass densities throughout the upper yohana g eldridge bilaterally. These findings are more severe on the left. There are no alveolar consolidation s. There has been interval development of layering small pleural effusions. There is a stable pericar dial effusion. Previously noted small pulmonary nodular densities on the prior exam are somewhat obsc ured by the new pulmonary infiltrates. There has been significant interval increase in size of a right paratracheal lymph node. The lymph no de mass currently measures 4.8 cm. This compares to 2.4 cm on the prior exam. In addition, there is a right supraclavicular lymph node mass which appears without significant change. Limited evaluation o f the upper abdomen demonstrates no acute findings. IMPRESSION: 1. Interval development of groundglass interstitial infiltrates in the mid and upper lung eldridge. Con assessment analyst nontypical infectious etiologies such as PCP. 2. Progression of metastatic disease with increasing adenopathy in the right paratracheal location. 3. Interval development of bilateral pleural effusions. 4. Stable small pericardial effusion.
--- NOTE | 2017-04-28 13:11 | PCM.DCSUM1 ---
Discharge Summary - Hospital Course Brief History: Mr. Harman is an 86-year-old gentleman who was admitted through the emergency department with weakness, fever, cough, and shortness of breath secondary to left lung pneumonia. - Discharge Data Discharge Date: 04/28/17 Discharge Disposition: DC/Tfer to Acute Hospital 02 Condition: Poor - Discharge Diagnosis/Problem(s) (1) Hypoxia SNOMED Code(s): 937173384 ICD Code: R09.02 - HYPOXEMIA Status: Acute Current Visit: Yes (2) Bilateral pneumonia SNOMED Code(s): 114105757 ICD Code: J18.9 - PNEUMONIA, UNSPECIFIED ORGANISM Status: Acute Current Visit: Yes (3) COPD with exacerbation SNOMED Code(s): 917524148740781 ICD Code: J44.1 - CHRONIC OBSTRUCTIVE PULMONARY DISEASE W (ACUTE) EXACERBATION Status: Acute Priority: High Current Visit: Yes (4) Metastatic cancer to lung Status: Chronic Current Visit: Yes Qualifiers: Laterality: unspecified laterality Qualified Code(s): C78.00 - Secondary malignant neoplasm of unspecified lung - Patient Summary/Data Consults: Consultations 04/23/17 10:11 PT Evaluation and Treatment [CONS] Routine Please Evaluate and Treat. PT Reason for Consult: Strengthening This query below is only for informational purposes and is not editable. Admission Diagnosis/Problem: Acute bronchitis with chronic obstructive pulmonary disease (COPD) Hospital Course: Mr. Berry is an 86-year-old gentleman with known metastatic lung cancer. He also has underlying COPD and has been admitted to this facility 3 other times in the past 2 months for COPD exacerbation with hypoxia and underlying pulmonary infection. He presented to the emergency department on 22 April with increased shortness of breath, cough, fever, and progressive weakness. On evaluation in the emergency department was found to have evidence of a left lung infiltrate. He was started on nebulizer therapy, IV Solu-Medrol, and IV antibiotic therapy with ceftriaxone and doxycycline. He was initially given IV fluids for hydration. Over the next 4 days of his hospital stay he really showed no significant improvement in symptoms, antibiotics were changed to levofloxacin and meropenem. Despite the change in antibiotics he actually developed increased shortness of breath with worsening hypoxia and progressive weakness over the next 2 days. On the day of transfer CT scan of the chest was obtained with PE protocol. This showed no evidence of pulmonary emboli but did document bilateral groundglass infiltrates as well as small bilateral pleural effusions. Also were noted increased size of lymph nodes compared to previous CT scan consistent with progression of his metastatic disease. He had been noted to have fluid overload with significant peripheral edema and had been started on IV furosemide daily for 2 days prior to transfer. On the morning of transfer IV vancomycin had been added to his antibiotic regimen. Because of worsening symptoms despite aggressive antibiotic therapy will be transferred for second opinion and subspecialty care to [facility] in [facility] via [facility] ambulance. - Patient Instructions Diet: Usual Diet as Tolerated Activity: As Tolerated Other/Special Instructions: Patient will be transferred via [facility] ambulance to [facility] in [facility]. - Discharge Plan Home Medications: Home Meds Fluticasone Propionate [Flonase] 2 spray NASBOTH BID 05/01/16 [History] Aspirin [Children's Aspirin] 81 mg PO WEEKLY 09/18/16 [History] Tiotropium [Spiriva HandiHaler] 18 mcg INH DAILY 12/26/16 [History] Albuterol Sulfate [Proair Hfa] 1 puff INH QID PRN 03/06/17 [History] Mometasone/Formoterol [Dulera 200-5 MCG] 2 inh INH BID 03/06/17 [History] Niacin [Niacin ER] 500 mg PO DAILY 03/06/17 [History] Azelastine [Astelin Nasal Soln] 2 puff NASBOTH BID 03/07/17 [History] Isosorbide Mononitrate [Imdur] 30 mg PO DAILY 03/27/17 [History] Albuterol [Proventil Neb Soln] 1 dose INH Q6H PRN #120 neb 03/28/17 [Rx] Metoprolol Tartrate [Lopressor] 50 mg PO BID #60 tablet 03/28/17 [Rx] Levalbuterol HCl [Xopenex Concentrate] 1 inh INH QID 04/22/17 [History] Albuterol [IJD: Albuterol] 2.5 mg NEB Q4H PRN nebule 04/28/17 [Rx] Albuterol/Ipratropium [DuoNeb 3.0-0.5 MG/3 ML] 3 ml NEB QIDRT neb 04/28/17 [Rx] Furosemide [Lasix] 20 mg IVPUSH DAILY vial 04/28/17 [Rx] Lactobacillus Rhamnosus GG [Culturelle] 1 cap PO BID cap 04/28/17 [Rx] Levofloxacin/Dextrose 5%-Water [Levaquin in D5W 750 MG/150 ML] 750 mg IV Q24H bag 04/28/17 [Rx] Melatonin 6 mg PO BEDTIME PRN tablet 04/28/17 [Rx] Meropenem [Merrem] 1 gm IV Q8H sdv 04/28/17 [Rx] Vancomycin 1 gm IV Q24H sdv 04/28/17 [Rx] predniSONE 30 mg PO WITHBREAKFAST tablet 04/28/17 [Rx] Referrals: Jorge Luis Saldana MD [Primary Care Provider] - - Patient Data Vitals - Most Recent: Last Vital Signs Temp 98.4 F 04/28/17 12:55 Pulse 92 04/28/17 12:55 Resp 18 04/28/17 12:55 BP 111/68 04/28/17 12:55 Pulse Ox 89 L 04/28/17 07:38 Weight - Most Recent: 128 lb 15.985 oz I&O - Last 24 hours: Intake & Output 04/27/17 04/28/17 04/28/17 22:59 06:59 14:59 Intake Total 100 970 Output Total 550 775 700 Balance -450 195 -700 Lab Results - Last 24 hrs: Laboratory Results - last 24 hr 04/28/17 04/28/17 Range/Units 04:30 04:30 WBC 15.7 H (4.5-11.0) K/uL RBC 4.21 L (4.30-5.90) M/uL Hgb 11.8 L (12.0-15.0) g/dL Hct 36.4 L (40.0-54.0) % MCV 87 (80-98) fL MCH 28 (27-31) pg MCHC 32 (32-36) % Plt Count 226 (150-400) K/uL Add Manual Diff Yes Neutrophils % (Manual) 81 H (36-66) % Band Neutrophils % 10 (5-11) % Lymphocytes % (Manual) 4 L (24-44) % Monocytes % (Manual) 3 (2-6) % Eosinophils % (Manual) 2 (2-4) % Sodium 141 (140-148) mmol/L Potassium 4.3 (3.6-5.2) mmol/L Chloride 104 (100-108) mmol/L Carbon Dioxide 32 (21-32) mmol/L Anion Gap 4.6 L (5.0-14.0) mmol/L BUN 14 (7-18) mg/dL Creatinine 1.0 (0.8-1.3) mg/dL Est Cr Clr Drug Dosing 45.51 mL/min Estimated GFR (MDRD) > 60 (>60) Glucose 95 (74-106) mg/dL Calcium 8.8 (8.5-10.1) mg/dL Magnesium 1.8 (1.8-2.4) mg/dL Med Orders - Current: Current Medications Acetaminophen (Tylenol) 650 mg PO Q4H PRN PRN Reason: Pain (Mild 1-3)/fever Al Hydroxide/Mg Hydroxide (Mag-Al Plus) 30 ml PO Q4H PRN PRN Reason: Indigestion Albuterol (Proventil Neb Soln) 2.5 mg NEB Q4H PRN PRN Reason: Shortness Of Breath/wheezing Last Admin: 04/27/17 04:39 Dose: 2.5 mg Albuterol/Ipratropium (Duoneb 3.0-0.5 Mg/3 Ml) 3 ml NEB QIDRT [facility] Last Admin: 04/28/17 11:11 Dose: 3 ml Aspirin (Aspirin) 81 mg PO We@0900 [facility] Last Admin: 04/28/17 08:20 Dose: 81 mg Azelastine HCl (Astelin Nasal Soln) 0 ml DENISE BID [facility] Last Admin: 04/28/17 08:21 Dose: 2 sprays Calcium Carbonate/Glycine (Tums) 1,000 mg PO Q2H PRN PRN Reason: Indigestion Last Admin: 04/25/17 20:32 Dose: 1,000 mg Fluticasone Propionate (Flonase) 0 gm NASBOTH BID [facility] Last Admin: 04/28/17 08:20 Dose: 2 spr Furosemide (Lasix) 20 mg IVPUSH DAILY [facility] Last Admin: 04/28/17 08:21 Dose: 20 mg Guaifenesin/Codeine Phosphate (Robitussin Ac) 10 ml PO Q4H PRN PRN Reason: Cough Heparin Sodium (Porcine) (Heparin Lock Flush 100 Units/Ml) 500 units FLUSH ASDIRECTED PRN PRN Reason: Keep Vein Open Last Admin: 04/25/17 20:33 Dose: 500 units Levofloxacin/Dextrose 750 mg/ (Premix) 150 mls @ 100 mls/hr IV Q24H [facility] Last Admin: 04/28/17 09:20 Dose: 100 mls/hr Meropenem 1 gm/ Sodium (Chloride) 100 mls @ 200 mls/hr IV Q8H [facility] Last Admin: 04/28/17 11:33 Dose: 200 mls/hr Vancomycin HCl 1 gm/ Sodium (Chloride) 250 mls @ 175 mls/hr IV Q24H [facility] Last Admin: 04/28/17 12:07 Dose: 175 mls/hr Isosorbide Mononitrate (Imdur) 30 mg PO DAILY@0730 [facility] Last Admin: 04/28/17 07:05 Dose: 30 mg Lactobacillus Rhamnosus (Culturelle) 1 cap PO BID [facility] Last Admin: 04/28/17 08:20 Dose: 1 cap Lorazepam (Ativan) 1 mg IV Q4H PRN PRN Reason: Anxiety Last Admin: 04/26/17 22:15 Dose: 0.5 mg Melatonin (Melatonin) 6 mg PO BEDTIME PRN PRN Reason: Sleep Last Admin: 04/27/17 22:12 Dose: 6 mg Metoprolol Tartrate (Lopressor) 50 mg PO BID [facility] Last Admin: 04/28/17 08:21 Dose: 50 mg Mometasone Furoate (Asmanex Hfa 200mcg) 0 gm INH BIDRT [facility] Last Admin: 04/28/17 07:19 Dose: 1 puff Morphine Sulfate (Morphine) 2 mg IVPUSH Q2H PRN PRN Reason: Pain (severe 7-10) Niacin (Niacin) 500 mg PO DAILY [facility] Last Admin: 04/28/17 08:21 Dose: 500 mg Ondansetron HCl (Zofran Odt) 4 mg PO Q6H PRN PRN Reason: Nausea able to take PO Ondansetron HCl (Zofran) 4 mg IV Q4H PRN PRN Reason: Nausea/Vomiting Oxycodone HCl (Oxycodone) 5 mg PO Q4H PRN PRN Reason: Pain (moderate 4-6) Prednisone (Prednisone) 30 mg PO WITHBREAKFAST [facility] Last Admin: 04/28/17 07:08 Dose: 30 mg Vancomycin HCl (Vancomycin) 1 gm IV .PHARMACY TO DOSE [facility] Discontinued Medications Albuterol/Ipratropium (Duoneb 3.0-0.5 Mg/3 Ml) 3 ml NEB QID PRN PRN Reason: Shortness Of Breath/wheezing Last Admin: 04/23/17 22:04 Dose: 3 ml Doxycycline Hyclate (Vibramycin) 100 mg PO BID [facility] Last Admin: 04/26/17 08:27 Dose: 100 mg Fluticasone Propionate (Flonase) Confirm Administered Dose 16 gm .ROUTE .STK- MED ONE Stop: 04/24/17 00:26 Last Admin: 04/24/17 00:39 Dose: Not Given Ceftriaxone Sodium 2 gm/ (Sodium Chloride) 50 mls @ 100 mls/hr IV Q24H [facility] Last Admin: 04/25/17 20:23 Dose: 100 mls/hr Doxycycline Hyclate 100 mg/ (Sodium Chloride) 100 mls @ 100 mls/hr IV Q12H [facility] Last Admin: 04/24/17 08:38 Dose: 100 mls/hr Sodium Chloride (Normal Saline) 1,000 mls @ 100 mls/hr IV ASDIRECTED [facility] Last Admin: 04/23/17 07:33 Dose: 100 mls/hr Sodium Chloride (Normal Saline) 1,000 mls @ 25 mls/hr IV ASDIRECTED [facility] Sodium Chloride (Normal Saline) 100 mls @ 4 mls/sec IV ASDIRECTED [facility] Stop: 04/28/17 11:00 Last Admin: 04/28/17 11:12 Dose: 4 mls/sec Iopamidol (Isovue-370 (76%)) 100 ml IV . DIRECTED [facility] Stop: 04/28/17 11:00 Last Admin: 04/28/17 11:12 Dose: 100 ml Methylprednisolone Sodium Succinate (Solu-Medrol) 125 mg IVPUSH Q8H [facility] Last Admin: 04/23/17 05:02 Dose: 125 mg Methylprednisolone Sodium Succinate (Solu-Medrol) 125 mg IVPUSH Q8H [facility] Last Admin: 04/23/17 13:34 Dose: 125 mg Methylprednisolone Sodium Succinate (Solu-Medrol) 62.5 mg IVPUSH ONETIME ONE Stop: 04/23/17 23:01 Last Admin: 04/23/17 22:06 Dose: 62.5 mg Prednisone (Prednisone) 20 mg PO BIDAC [facility] Stop: 04/25/17 20:00 Last Admin: 04/25/17 16:36 Dose: 20 mg *Q Meaningful Use (DIS) - VTE *Q VTE Criteria *Q: - Stroke *Q Stroke Criteria *Q: - AMI *Q AMI Criteria *Q:
[2017-04-28 14:57] VITALS: BP 126/72
== END 2017-04-28 17:20 | DRG 194 ==
LOC: JP.ED 16:35 → JP.2SS 19:27 → JP.MS 04-25 05:50
PROVIDERS: ADMIT Hospitalist; ATTEND Hospitalist
DX: J18.9 Pneumonia, unspecified organism (principal); J44.1 Chronic obstructive pulmonary disease with (acute) exacerbation; C34.90 Malignant neoplasm of unspecified part of unspecified bronchus or lung; C79.9 Secondary malignant neoplasm of unspecified site; R53.1 Weakness; Z87.891 Personal history of nicotine dependence; R05 Cough; R06.02 Shortness of breath; R19.7 Diarrhea, unspecified; I25.10 Atherosclerotic heart disease of native coronary artery without angina pectoris; M19.90 Unspecified osteoarthritis, unspecified site; H54.7 Unspecified visual loss; H91.90 Unspecified hearing loss, unspecified ear; J30.9 Allergic rhinitis, unspecified; Z79.82 Long term (current) use of aspirin; Z79.52 Long term (current) use of systemic steroids; Z88.1 Allergy status to other antibiotic agents; Z88.0 Allergy status to penicillin; Z88.7 Allergy status to serum and vaccine; Z88.8 Allergy status to other drugs, medicaments and biological substances; R09.02 Hypoxemia
CPT/HCPCS: 36415; 36600; 71010; 71010-26; 71275; 71275-26; 80048; 81001; 82803; 83735; 85025; 85027; 87046; 87077; 87493; 87899; 89055; 93005; 93010; 94640; 94640-76; 94660; 94667; 94668; 94762; 97110-GP; 97162-GP; 97530-GP; 99285; 99285-25; A9270-GY; J0696; J1642; J1940; J1956; J2060; J2185; J2930; J3370; J7030; J7040; J7050; J7620; Q9967